=== PATIENT | female | born 1995 | race Caucasian/White ===

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

== ENCOUNTER 2017-02-07 06:29 | Emergency (ER) | payer OTHER ==
[2017-02-07 07:06] LABS: Appearance,Urine Turbid (Clear); Bacteria,Urine Rare /hpf; Bilirubin,Urine 1+ (Negative); Glucose,Urine (UA) Negative (Negative); Ketones,Urine Negative (Negative); Leukocyte Esterase,Urine Large (Negative); Nitrite,Urine Positive (Negative); Particle Count 10902; Protein,Urine 2+ (Negative); RBC,Urine >182 /hpf (0-5); Specific Gravity,Urine 1.019 (1.001-1.035); Squamous Epithelial Cell,Urine 4 /hpf (0-4); UA Billing (MACRO vs. MICRO) MICRO; WBC,Urine >182 /hpf (0-5)
[2017-02-07] MEDS ORDERED: cefTRIAXone 1,000 MG VIAL (IM USE) IM STA (07:23)
--- NOTE | 2017-02-07 07:31 | ED ---
General Adult HPI - General Chief complaint: Urogenital Stated complaint: Possible bladder infection Time Seen by Provider: 02/07/17 07:00 Source: patient, RN notes reviewed Mode of arrival: ambulatory Limitations: no limitations - History of Present Illness Initial comments: This is a 21-year-old female with past medical history significant for UTIs. Patient states she has dysuria and urinary urgency. Patient states prior to my seems to be helping a little but she continues to have urgency. Patient denies any back pain. Patient denies any fever or chills. Patient states this is been ongoing issue over the last year. Patient denies any nausea vomiting or diarrhea. Patient states she has some suprapubic tenderness. Patient denies any vaginal bleeding or discharge abnormally. - Related Data Home Medications Medication Instructions Recorded Confirmed Azo Urinary Pain Relief 2 tab PO TID 12/11/16 12/11/16 Previous Rx's Medication Instructions Recorded Sulfamethox-Tmp 800-160Mg [Bactrim 1 tab PO Q12HR #20 tab 12/11/16 DS 800-160 mg] Ciprofloxacin HCl [Cipro] 500 mg PO Q12HR #20 tablet 02/07/17 Allergies Allergy/AdvReac Type Severity Reaction Status Date / Time amphetamine [From Adderall] Allergy Nausea Verified 12/11/16 18:20 ampicillin sodium Allergy Unknown Verified 12/11/16 18:20 [From Unasyn] aripiprazole [From Abilify] Allergy Unknown Verified 12/11/16 18:20 dextroamphetamine Allergy Nausea Verified 12/11/16 18:20 [From Adderall] sulbactam sodium Allergy Unknown Verified 12/11/16 18:20 [From Unasyn] ziprasidone HCl [From Geodon] Allergy Unknown Verified 12/11/16 18:20 ziprasidone mesylate Allergy Unknown Verified 12/11/16 18:20 [From Geodon] Review of Systems ROS Statement: Those systems with pertinent positive or pertinent negative responses have been documented in the HPI. ROS Other: All systems not noted in ROS Statement are negative. Past Medical History Past Medical History: No Reported History Additional Past Medical History / Comment(s): OTC deficicency, MIGRAINES, Ovarian Cysts History of Any Multi-Drug Resistant Organisms: None Reported Past Surgical History: No Surgical Hx Reported Past Psychological History: ADD/ADHD, Bipolar, Depression Smoking Status: Current every day smoker Past Alcohol Use History: None Reported Past Drug Use History: None Reported General Exam - General Exam Comments Initial Comments: GENERAL: Patient is well-developed and well-nourished. Patient is nontoxic and well- hydrated and is in mild distress. ENT: Neck is soft and supple. No significant lymphadenopathy is noted. Oropharynx is clear. Moist mucous membranes. EYES: The sclera were anicteric and conjunctiva were pink and moist. Extraocular movements were intact and pupils were equal round and reactive to light. Eyelids were unremarkable. PULMONARY: Unlabored respirations. Good breath sounds bilaterally. No audible rales rhonchi or wheezing was noted. CARDIOVASCULAR: There is a regular rate and rhythm without any murmurs gallops or rubs. ABDOMEN: Soft and nontender with normal bowel sounds. SKIN: Skin is clear with no lesions or rashes and otherwise unremarkable. NEUROLOGIC: Patient is alert and oriented x3. Cranial nerves II through XII are grossly intact. MUSCULOSKELETAL: Normal extremities with adequate strength and full range of motion. LYMPHATICS: No significant lymphadenopathy is noted PSYCHIATRIC: Normal psychiatric evaluation. Limitations: no limitations Course Vital Signs 02/07/17 06:30 Temperature 98.9 F Pulse Rate 85 Respiratory 16 Rate Blood Pressure 106/58 O2 Sat by Pulse 95 Oximetry Medical Decision Making - Medical Decision Making Patient's urine was consistent with urinary tract infection. I gave the patient a shot of Rocephin in the ER and we'll be sending the patient home on Cipro. - Lab Data Lab Results 02/07/17 Range/Units 06:50 Urine Color Dark Brown Urine Appearance Turbid H (Clear) Urine pH 6.0 (5.0-8.0) Ur Specific [place] 1.019 (1.001-1.035) Urine Protein 2+ H (Negative) Urine Glucose (UA) Negative (Negative) Urine Ketones Negative (Negative) Urine Blood Large H (Negative) Urine Nitrite Positive H (Negative) Urine Bilirubin 1+ H (Negative) Urine Urobilinogen 6.0 (<2.0) mg/dL Ur Leukocyte Esterase Large H (Negative) Urine RBC >182 H (0-5) /hpf Urine WBC >182 H (0-5) /hpf Urine WBC Clumps Many H (None) /hpf Ur Squamous Epith Cells 4 (0-4) /hpf Urine Bacteria Rare H (None) /hpf Disposition Clinical Impression: Urinary tract infection Disposition: HOME SELF-CARE Condition: Good Instructions: Urinary Tract Infection in Women (ED) Prescriptions: Ciprofloxacin HCl [Cipro] 500 mg PO Q12HR #20 tablet Referrals: Rashmi Perales DO [Primary Care Provider] - 1-2 days Time of Disposition: 07:28
[2017-02-07 07:52] VITALS: BP 124/76; PULSE 84; RESP 18; TEMP 98.7
== END 2017-02-07 07:51 | disposition home or self-care (01) ==
LOC: EC 06:29
DX: N39.0 Urinary tract infection, site not specified (principal); F17.200 Nicotine dependence, unspecified, uncomplicated; Z79.899 Other long term (current) drug therapy; Z88.0 Allergy status to penicillin; Z88.8 Allergy status to other drugs, medicaments and biological substances
CPT/HCPCS: 87591; 87491; 81001; 99283; 96372; J0696

== ENCOUNTER 2017-12-16 22:20 | Emergency (ER) | payer OTHER ==
[2017-12-16 22:27] VITALS: RESP 18
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
[2017-12-17] MEDS ORDERED: IBUPROFEN 600 MG STARTER PACK 4 TAB BTL PO STA (00:45)
[2017-12-17 01:07] VITALS: BP 116/70; PULSE 98; TEMP 98.5
--- NOTE | 2017-12-17 01:09 | XR ---
EXAMINATION TYPE: XR lumbosacral spine min 4V DATE OF EXAM: 12/17/2017 COMPARISON: NONE HISTORY: Pain TECHNIQUE: 5 views FINDINGS: The lumbar vertebra have normal spacing and alignment. Posterior elements are intact. Sacro iliac joints are normal. I see no compression fracture. IMPRESSION: Negative lumbar spine exam. No fracture seen.
== END 2017-12-17 01:06 | disposition home or self-care (01) ==
LOC: EC 22:20
DX: M54.5 Low back pain (principal); F17.200 Nicotine dependence, unspecified, uncomplicated; Z79.899 Other long term (current) drug therapy; Z88.8 Allergy status to other drugs, medicaments and biological substances; Z88.0 Allergy status to penicillin; Z88.1 Allergy status to other antibiotic agents; V43.62XA Car passenger injured in collision with other type car in traffic accident, initial encounter; Y92.410 Unspecified street and highway as the place of occurrence of the external cause
CPT/HCPCS: 72110; 81025; 99284

== ENCOUNTER 2018-09-15 08:58 | Emergency (ER) | payer OTHER ==
[2018-09-15 09:00] VITALS: RESP 18; TEMP 99.3
--- NOTE | 2018-09-15 09:26 | ED ---
ENT HPI - General Chief complaint: ENT Stated complaint: Throat Pain, Ear Pain Time Seen by Provider: 09/15/18 09:01 Source: patient, RN notes reviewed Mode of arrival: ambulatory Limitations: no limitations - History of Present Illness Initial comments: 23-year-old female presents emergency Department chief complaint cough and cold- like symptoms for the day days. Patient states she's been trying of renal colic no relief. Patient states that she's had low-grade temps at home states that she just felt febrile and achy. She states her cough is productive at times. She states her muscles and joints ache. Patient also admits to nasal congestion and sore throat. She does admit to left ear pain and pressure. Patient denies any sick contacts. Denies nausea vomiting diarrhea constipation - Related Data Home Medications Medication Instructions Recorded Confirmed D-Methorphan/PE/Acetaminophen 1 pack PO Q4H PRN 09/15/18 09/15/18 [Theraflu Ms Severe Cold Pckt] Dm/Acetaminophen/Doxylamine [Vicks 2 cap PO Q4H PRN 09/15/18 09/15/18 Nyquil Liquicaps] Ibuprofen [Motrin Ib] 400 mg PO Q6H PRN 09/15/18 09/15/18 Previous Rx's Medication Instructions Recorded Pseudoephedrine 12Hr [Sudafed 12 120 mg PO Q12H #1 box 09/15/18 Hour] guaiFENesin-DM 100-10MG/5ML 10 ml PO Q6HR #1 bottle 09/15/18 [Robitussin DM] Allergies Allergy/AdvReac Type Severity Reaction Status Date / Time amphetamine [From Adderall] Allergy Nausea Verified 09/15/18 09:15 ampicillin sodium Allergy Unknown Verified 09/15/18 09:15 [From Unasyn] aripiprazole [From Abilify] Allergy Unknown Verified 09/15/18 09:15 dextroamphetamine Allergy Nausea Verified 09/15/18 09:15 [From Adderall] sulbactam sodium Allergy Unknown Verified 09/15/18 09:15 [From Unasyn] ziprasidone HCl [From Geodon] Allergy Unknown Verified 09/15/18 09:15 ziprasidone mesylate Allergy Unknown Verified 09/15/18 09:15 [From Geodon] Review of Systems ROS Statement: Those systems with pertinent positive or pertinent negative responses have been documented in the HPI. ROS Other: All systems not noted in ROS Statement are negative. Past Medical History Past Medical History: No Reported History Additional Past Medical History / Comment(s): OTC deficicency, MIGRAINES, Ovarian Cysts History of Any Multi-Drug Resistant Organisms: None Reported Past Surgical History: No Surgical Hx Reported Past Psychological History: ADD/ADHD, Bipolar, Depression Smoking Status: Current every day smoker Past Alcohol Use History: Occasional Past Drug Use History: None Reported General Exam Limitations: no limitations General appearance: alert, in no apparent distress Head exam: Present: atraumatic, normocephalic, normal inspection Eye exam: Present: normal appearance, PERRL, EOMI. Absent: scleral icterus, conjunctival injection, periorbital swelling ENT exam: Present: normal exam, normal oropharynx, mucous membranes moist, TM's normal bilaterally, normal external ear exam Neck exam: Present: normal inspection, full ROM. Absent: tenderness, meningismus, lymphadenopathy Respiratory exam: Present: normal lung sounds bilaterally. Absent: respiratory distress, wheezes, rales, rhonchi, stridor Cardiovascular Exam: Present: normal rhythm, tachycardia, normal heart sounds. Absent: systolic murmur, diastolic murmur, rubs, gallop, clicks Neurological exam: Present: alert, oriented X3, CN II-XII intact Psychiatric exam: Present: normal affect, normal mood Skin exam: Present: warm, dry, intact, normal color. Absent: rash Course Vital Signs 09/15/18 08:58 Temperature 99.3 F Pulse Rate 110 H Respiratory 18 Rate Blood Pressure 114/74 O2 Sat by Pulse 99 Oximetry Medical Decision Making - Medical Decision Making 23-year-old female sent emergency from for cough congestion. Patient has negative influenza, chest x-ray unremarkable. Patient has a viral URI. Patient we discharged on Sudafed and Robitussin. Return parameters were discussed. - Lab Data Lab Results 09/15/18 Range/Units 09:16 Influenza Type A RNA Not Detected (Not Detectd) Influenza Type B (PCR) Not Detected (Not Detectd) Disposition Clinical Impression: Viral upper respiratory infection Disposition: HOME SELF-CARE Condition: Stable Instructions: Upper Respiratory Infection (ED) Additional Instructions: Please return to the Emergency Department if symptoms worsen or any other concerns. Prescriptions: guaiFENesin-DM 100-10MG/5ML [Robitussin DM] 10 ml PO Q6HR #1 bottle Pseudoephedrine 12Hr [Sudafed 12 Hour] 120 mg PO Q12H #1 box Is patient prescribed a controlled substance at d/c from ED?: No Referrals: None,Stated [Primary Care Provider] - 1-2 days Time of Disposition: 10:06
--- NOTE | 2018-09-15 09:28 | XR ---
EXAMINATION TYPE: XR chest 2V DATE OF EXAM: 09/15/2018 COMPARISON: None INDICATION: Cough, congestion, fever TECHNIQUE: Frontal and lateral views of the chest are obtained. FINDINGS: The heart size is normal. The pulmonary vasculature is normal. The lungs are clear. IMPRESSION: 1. No acute pulmonary process.
[2018-09-15 10:19] VITALS: BP 115/85; PULSE 100
== END 2018-09-15 10:15 | disposition home or self-care (01) ==
LOC: EC 08:58
DX: J06.9 Acute upper respiratory infection, unspecified (principal); F17.200 Nicotine dependence, unspecified, uncomplicated; Z88.8 Allergy status to other drugs, medicaments and biological substances; Z88.1 Allergy status to other antibiotic agents
CPT/HCPCS: 71046; 87502; 99283

== ENCOUNTER 2019-01-04 14:44 | Emergency (ER) | payer OTHER ==
[2019-01-04 15:24] VITALS: BP 106/56; RESP 16
--- NOTE | 2019-01-04 16:01 | XR ---
EXAMINATION TYPE: XR shoulder complete RT DATE OF EXAM: 01/04/2019 COMPARISON: NONE HISTORY: 23-year-old female with pain after movement at work TECHNIQUE: 3 views FINDINGS: Subacromial space is preserved. No tendinous or bursal calcifications. AC joint is intact. The glenoh umeral joint is intact with preserved joint space. No acute fracture, subluxation, or dislocation. IMPRESSION: No acute osseous abnormality seen.
--- NOTE | 2019-01-04 16:15 | ED ---
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 Patient port that she does do any repetitive motion at work, since that aggravates her pain. Patient denies any other complaints today. Patient has any recent falls or trauma. Patient states that she is not . Patient not been previously evaluated for this problem. Systemic: Pt denies fatigue, fever/chills, rash. Pt denies weakness, night sweats, weight loss. Neuro: Pt denies headache, visual disturbances, syncope or pre-syncope. HEENT: Pt denies ocular discharge or irritation, otalgia, rhinorrhea, pharyngitis or notable lymphadenopathy. Cardiopulmonary: Pt denies chest pain, SOB, heart palpitations, dyspnea on exertion. Abdominal/GI: Pt denies abdominal pain, n/v/d. : Pt denies dysuria, burning w/ urination, frequency/urgency. Denies new onset urinary or bowel incontinence. MSK: Pt denies loss of strength or function in extremities. Neuro: Pt denies new onset weakness, paresthesias. - Related Data Home Medications Medication Instructions Recorded Confirmed D-Methorphan/PE/Acetaminophen 1 pack PO Q4H PRN 09/15/18 09/15/18 [Theraflu Ms Severe Cold Pckt] Dm/Acetaminophen/Doxylamine [Vicks 2 cap PO Q4H PRN 09/15/18 09/15/18 Nyquil Liquicaps] Ibuprofen [Motrin Ib] 400 mg PO Q6H PRN 09/15/18 09/15/18 Previous Rx's Medication Instructions Recorded Pseudoephedrine 12Hr [Sudafed 12 120 mg PO Q12H #1 box 09/15/18 Hour] guaiFENesin-DM 100-10MG/5ML 10 ml PO Q6HR #1 bottle 09/15/18 [Robitussin DM] Allergies Allergy/AdvReac Type Severity Reaction Status Date / Time amphetamine [From Adderall] Allergy Nausea Verified 09/15/18 09:15 ampicillin sodium Allergy Unknown Verified 09/15/18 09:15 [From Unasyn] aripiprazole [From Abilify] Allergy Unknown Verified 09/15/18 09:15 dextroamphetamine Allergy Nausea Verified 09/15/18 09:15 [From Adderall] sulbactam sodium Allergy Unknown Verified 09/15/18 09:15 [From Unasyn] ziprasidone HCl [From Geodon] Allergy Unknown Verified 09/15/18 09:15 ziprasidone mesylate Allergy Unknown Verified 09/15/18 09:15 [From Geodon] Review of Systems ROS Statement: Those systems with pertinent positive or pertinent negative responses have been documented in the HPI. ROS Other: All systems not noted in ROS Statement are negative. Past Medical History Past Medical History: No Reported History Additional Past Medical History / Comment(s): OTC deficicency, MIGRAINES, Ovarian Cysts History of Any Multi-Drug Resistant Organisms: None Reported Past Surgical History: No Surgical Hx Reported Past Psychological History: ADD/ADHD, Bipolar, Depression Smoking Status: Current every day smoker Past Alcohol Use History: Occasional Past Drug Use History: None Reported General Exam - General Exam Comments Initial Comments: Constitutional: NAD, AOX3, Pt has pleasant affect. HEENT: NC/AT, trachea midline, neck supple, no lymphadenopathy. Posterior pharynx non erythematous, without exudates. External ears appear normal, without discharge. Mucous membranes moist. Eyes PERRLA, EOM intact. There is no scleral icterus. No pallor noted. Cardiopulmonary: RRR, no murmurs, rubs or gallops, no JVD noted. Lungs CTAB in anterior and posterior lemus. No peripheral edema. Abdominal exam: Abdomen soft and non-distended. Abdomen non-tender to palpation in all 4 quadrants. Bowel sounds active in LLQ. No hepatosplenomegaly. No ecchymosis Neuro: CN II-XII grossly intact. No nuchal rigidity. MSK: Right shoulder nontender to palpation. No ecchymoses, no erythema. Empty can test positive. Painful arc positive. 5 out of 5 strength upper extremity. Sensation intact. Distal pulses intact and equal. No posterior calf tenderness bilaterally, homans sign negative bilaterally. Posterior tibialis and radial pulse +2 bilaterally. Sensation intact in upper and lower extremities. Full active ROM in upper and lower extremities, 5/5 stregnth. Limitations: no limitations Course Vital Signs 01/04/19 01/04/19 15:20 16:24 Temperature 97.7 F 98.0 F Pulse Rate 81 78 Respiratory 16 16 Rate Blood Pressure 106/56 O2 Sat by Pulse 100 99 Oximetry Medical Decision Making - Medical Decision Making 23-year-old female patient past medical history of right shoulder dislocation approximately 6 years ago presents to ED with approximately 6 years of waxing and waning right shoulder pain. Patient port that she does do any repetitive motion at work, since that aggravates her pain. Patient denies any other co mplaints today. Patient has any recent falls or trauma. Patient states that she is not . Patient not been previously evaluated for this problem. Pt VSS, afebrile. Physical exam displayed: Right shoulder nontender to palpation. No ecchymoses, no erythema. Empty can test positive. Painful arc positive. 5 out of 5 strength upper extremity. Sensation intact. Distal pulses intact and equal. Plain film of right shoulder did not display any acute pathology. Family history taking, patient states that she does want to ensure that she did not have a dislocated shoulder again. Patient states that she does request to return to work. Patient discharged with outpatient orthopedic follow-up. Patient instructed to work only as tolerated and pain-free. Patient to follow up with orthopedic consult 1-2 days. Patient will return to ER physician worsens in any way. Case discussed with Dr. Rea. Disposition Clinical Impression: Shoulder sprain Disposition: HOME SELF-CARE Condition: Stable Instructions (If sedation given, give patient instructions): Shoulder Sprain (ED) Additional Instructions: Patient to adhere to previously discussed treatment plan and will take medication(s) as directed. Patient to follow up with PCP in 1-2 days. Patient to return to ED if symptoms do not improve. This follow up with primary care physician and orthopedic surgeon for return to work. Please follow-up with orthopedic consult and PCP in 1-2 days. Return to ER if condition worsens in any way. Is patient prescribed a controlled substance at d/c from ED?: No Referrals: None,Stated [Primary Care Provider] - 1-2 days [facility] [NON-STAFF] - 1-2 days Rory Adair DO [Doctor of Osteopathic Medicine] - 1-2 days
[2019-01-04 16:26] VITALS: PULSE 78; TEMP 98
== END 2019-01-04 16:24 | disposition home or self-care (01) ==
LOC: EC 14:44
DX: S43.401A Unspecified sprain of right shoulder joint, initial encounter (principal); F17.200 Nicotine dependence, unspecified, uncomplicated; Z88.8 Allergy status to other drugs, medicaments and biological substances; Z88.1 Allergy status to other antibiotic agents
CPT/HCPCS: 99284

== ENCOUNTER 2019-01-20 20:44 | Emergency (ER) | payer OTHER ==
[2019-01-20] MEDS ORDERED: PROPARACAINE 0.5% OPHTH DROPS 15 ML BTL LEFT EYE STA (23:11)
--- NOTE | 2019-01-20 23:44 | ED ---
General Adult HPI - General Source: patient, RN notes reviewed, old records reviewed Mode of arrival: ambulatory Limitations: no limitations <Ayden Wilson - Last Filed: 01/20/19 23:41> <Samantha Deluna - Last Filed: 01/22/19 06:27> - General Chief complaint: Eye Problems Stated complaint: Chemical-eye Time Seen by Provider: 01/20/19 21:59 - History of Present Illness Initial comments: 23-year-old female patient no pertinent past history presents to ED after having an eye exposure to [id number] chemical which is a lubricant. 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 Patient reports that there was a malfunction and the substance made contact with her left eye. Patient was wearing glasses however they were blown off. Patient reports some burning in her left eye. Patient reports some mild blurred vision which has resolved. Patient denies any other complaints. Systemic: Pt denies fatigue, myalgia, fever/chills, rash. Pt denies weakness, night sweats, weight loss. Neuro: Pt denies headache, visual disturbances, syncope or pre-syncope. HEENT: Pt denies ocular discharge or irritation, otalgia, rhinorrhea, pharyngitis or notable lymphadenopathy. Cardiopulmonary: Pt denies chest pain, SOB, heart palpitations, dyspnea on exertion. Abdominal/GI: Pt denies abdominal pain, n/v/d. : Pt denies dysuria, burning w/ urination, frequency/urgency. Denies new onset urinary or bowel incontinence. MSK: Pt denies myalgia, loss of strength or function in extremities. Neuro: Pt denies new onset weakness, paresthesias. (Ayden Wilson) - Related Data Home Medications Medication Instructions Recorded Confirmed D-Methorphan/PE/Acetaminophen 1 pack PO Q4H PRN 09/15/18 09/15/18 [Theraflu Ms Severe Cold Pckt] Dm/Acetaminophen/Doxylamine [Vicks 2 cap PO Q4H PRN 09/15/18 09/15/18 Nyquil Liquicaps] Ibuprofen [Motrin Ib] 400 mg PO Q6H PRN 09/15/18 09/15/18 Previous Rx's Medication Instructions Recorded Pseudoephedrine 12Hr [Sudafed 12 120 mg PO Q12H #1 box 09/15/18 Hour] guaiFENesin-DM 100-10MG/5ML 10 ml PO Q6HR #1 bottle 09/15/18 [Robitussin DM] Erythromycin Ophth Oint [Romycin 1 applic BOTH EYES QID 7 Days #1 01/20/19 Ophth Oint] tube Allergies Allergy/AdvReac Type Severity Reaction Status Date / Time amphetamine [From Adderall] Allergy Nausea Verified 01/20/19 21:09 ampicillin sodium Allergy Unknown Verified 01/20/19 21:09 [From Unasyn] aripiprazole [From Abilify] Allergy Unknown Verified 01/20/19 21:09 dextroamphetamine Allergy Nausea Verified 01/20/19 21:09 [From Adderall] sulbactam sodium Allergy Unknown Verified 01/20/19 21:09 [From Unasyn] ziprasidone HCl [From Geodon] Allergy Unknown Verified 01/20/19 21:09 ziprasidone mesylate Allergy Unknown Verified 01/20/19 21:09 [From Geodon] Review of Systems ROS Other: All systems not noted in ROS Statement are negative. <Ayden Wilson - Last Filed: 01/20/19 23:41> ROS Other: All systems not noted in ROS Statement are negative. <Samantha Deluna - Last Filed: 01/22/19 06:27> ROS Statement: Those systems with pertinent positive or pertinent negative responses have been documented in the HPI. Past Medical History Past Medical History: No Reported History Additional Past Medical History / Comment(s): OTC deficicency, MIGRAINES, Ovarian Cysts History of Any Multi-Drug Resistant Organisms: None Reported Past Surgical History: No Surgical Hx Reported Past Psychological History: ADD/ADHD, Bipolar, Depression Smoking Status: Current every day smoker Past Alcohol Use History: Occasional Past Drug Use History: None Reported <Ayden Wilson - Last Filed: 01/20/19 23:41> General Exam Limitations: no limitations <Ayden Wilson - Last Filed: 01/20/19 23:41> - General Exam Comments Initial Comments: Constitutional: NAD, AOX3, Pt has pleasant affect. HEENT: NC/AT, trachea midline, neck supple, no lymphadenopathy. Posterior pharynx non erythematous, without exudates. External ears appear normal, without discharge. Mucous membranes moist. Eyes PERRLA, EOM intact. There is no scleral icterus. No pallor noted. No injection into either eye bilaterally. Fluorescein stain does not reveal any uptake in bilateral eyes. Cardiopulmonary: RRR, no murmurs, rubs or gallops, no JVD noted. Lungs CTAB in anterior and posterior lemus. No peripheral edema. Abdominal exam: Abdomen soft and non-distended. Abdomen non-tender to palpation in all 4 quadrants. Bowel sounds active in LLQ. No hepatosplenomegaly. No ecchymosis Neuro: CN II-XII grossly intact. No nuchal rigidity. MSK: No posterior calf tenderness bilaterally, homans sign negative bilaterally. Posterior tibialis and radial pulse +2 bilaterally. Sensation intact in upper and lower extremities. Full active ROM in upper and lower extremities, 5/5 stregnth. (Ayden Wilson) Course Vital Signs 01/20/19 01/21/19 21:05 00:00 Temperature 98.5 F 97.8 F Pulse Rate 64 72 Respiratory 20 19 Rate Blood Pressure 110/78 137/87 O2 Sat by Pulse 100 97 Oximetry Medical Decision Making <Ayden Wilson - Last Filed: 01/20/19 23:41> <Samantha Deluna - Last Filed: 01/22/19 06:27> - Medical Decision Making 23-year-old female patient no pertinent past history presents to ED after having an eye exposure to [id number] chemical which is a lubricant. 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 Patient reports that there was a malfunction and the substance made contact with her left eye. Patient was wearing glasses however they were blown off. Patient reports some burning in her left eye. Patient reports some mild blurred vision which has resolved. Patient denies any other complaints. Pt VSS, afebrile. Physical exam revealed: No injection into either eye bilaterally. Fluorescein stain does not reveal any uptake in bilateral eyes. I irrigated with 1 L normal saline. Patient states that it is not baseline. Patient not contact lens user. Patient discharged with erythromycin. Poison control was contacted and agreement with plan. Patient will be given ophthalmology referral for outpatient follow-up. Patient return to ER if condition worsens. Case discussed with Dr. Deluna. (Ayden Wilson) I was available for consultation in the emergency department. The history and physical exam were done by the midlevel provider. I was consulted for this patient's care. I reviewed the case with the midlevel provider and based on their presentation of the patient, I agree with the assessment, medical decision making and plan of care as documented. Chart was dictated using [employer] dictation software. Attempts were made to correct any dictation errors however some typographical errors may persist. (Samantha Deluna) Disposition Is patient prescribed a controlled substance at d/c from ED?: No <Adyen Wilson - Last Filed: 01/20/19 23:41> <Samantha Deluna - Last Filed: 01/22/19 06:27> Clinical Impression: Chemical exposure of eye Disposition: HOME SELF-CARE Condition: Stable Instructions (If sedation given, give patient instructions): Eye Pain (ED) Additional Instructions: Patient to adhere to previously discussed treatment plan and will take medication(s) as directed. Patient to follow up with PCP in 1-2 days. Patient to return to ED if symptoms do not improve. Take medication as directed. Follow-up with ophthalmology consult tomorrow. Follow up with primary care provider in 1-2 days. Return to ER if condition worsens. Prescriptions: Erythromycin Ophth Oint [Romycin Ophth Oint] 1 applic BOTH EYES QID 7 Days #1 tube Referrals: None,Stated [Primary Care Provider] - 1-2 days Eva Bee MD [STAFF PHYSICIAN] - 1-[address] [facility] [NON-STAFF] - 1-2 days
[2019-01-21 00:02] VITALS: BP 137/87; PULSE 72; RESP 19; TEMP 97.8
== END 2019-01-21 | disposition home or self-care (01) ==
LOC: EC 20:44
DX: T26.92XA Corrosion of left eye and adnexa, part unspecified, initial encounter (principal); H53.8 Other visual disturbances; F17.200 Nicotine dependence, unspecified, uncomplicated; Z77.098 Contact with and (suspected) exposure to other hazardous, chiefly nonmedicinal, chemicals; Z88.8 Allergy status to other drugs, medicaments and biological substances; Z88.1 Allergy status to other antibiotic agents; Y92.69 Other specified industrial and construction area as the place of occurrence of the external cause; Y99.0 Civilian activity done for income or pay
CPT/HCPCS: 99283

== ENCOUNTER 2019-04-21 14:28 | Emergency (ER) | payer OTHER ==
[2019-04-21 14:34] VITALS: BP 107/65; PULSE 82; RESP 16; TEMP 97.6
[2019-04-21 15:06] LABS: Appearance,Urine Clear (Clear); Bilirubin,Urine Negative (Negative); Blood,Urine Small (Negative); Color,Urine Yellow; Glucose,Urine (UA) Negative (Negative); Ketones,Urine Negative (Negative); Leukocyte Esterase,Urine Small (Negative); Nitrite,Urine Negative (Negative); Protein,Urine Negative (Negative); RBC,Urine <1 /hpf (0-5); Specific Gravity,Urine 1.025 (1.001-1.035); Squamous Epithelial Cell,Urine 2 /hpf (0-4); Urobilinogen,Urine <2.0 mg/dL (<2.0); WBC,Urine 2 /hpf (0-5)
--- NOTE | 2019-04-21 15:38 | ED ---
General Adult HPI - General Chief complaint: Urogenital Stated complaint: Urogenital Time Seen by Provider: 04/21/19 14:35 Source: patient, RN notes reviewed Mode of arrival: ambulatory Limitations: no limitations - History of Present Illness Initial comments: 23-year-old female without any significant past medical history presents to the emergency department for vaginal discharge times one week. Patient states this started as a pressure when urinating and some burning with urination. States that she then started to have vaginal discharge. Patient denies any pelvic pain. Denies any fevers. Patient does admit that a few weeks ago she had a new sexual partner. States that she was tested for STDs a month ago but this partner was after that. Patient states she is currently taking Flagyl and is on day 2 for possible bacterial vaginosis but she did not have a confirmed diagnosis.Patient has no other complaints at this time including shortness of breath, chest pain, abdominal pain, nausea or vomiting, headache, or visual changes. - Related Data Home Medications Medication Instructions Recorded Confirmed D-Methorphan/PE/Acetaminophen 1 pack PO Q4H PRN 09/15/18 09/15/18 [Theraflu Ms Severe Cold Pckt] Dm/Acetaminophen/Doxylamine [Vicks 2 cap PO Q4H PRN 09/15/18 09/15/18 Nyquil Liquicaps] Ibuprofen [Motrin Ib] 400 mg PO Q6H PRN 09/15/18 09/15/18 Previous Rx's Medication Instructions Recorded Pseudoephedrine 12Hr [Sudafed 12 120 mg PO Q12H #1 box 09/15/18 Hour] guaiFENesin-DM 100-10MG/5ML 10 ml PO Q6HR #1 bottle 09/15/18 [Robitussin DM] Erythromycin Ophth Oint [Romycin 1 applic BOTH EYES QID 7 Days #1 01/20/19 Ophth Oint] tube Amoxicillin 500 mg PO Q8H #30 capsule 03/06/19 Fluconazole [Diflucan] 150 mg PO ONCE #2 tab 03/06/19 Allergies Allergy/AdvReac Type Severity Reaction Status Date / Time amphetamine [From Adderall] Allergy Nausea Verified 04/21/19 14:31 ampicillin sodium Allergy Unknown Verified 04/21/19 14:31 [From Unasyn] aripiprazole [From Abilify] Allergy Unknown Verified 04/21/19 14:31 dextroamphetamine Allergy Nausea Verified 04/21/19 14:31 [From Adderall] sulbactam sodium Allergy Unknown Verified 04/21/19 14:31 [From Unasyn] ziprasidone HCl [From Geodon] Allergy Unknown Verified 04/21/19 14:31 ziprasidone mesylate Allergy Unknown Verified 04/21/19 14:31 [From Geodon] Review of Systems ROS Statement: Those systems with pertinent positive or pertinent negative responses have been documented in the HPI. ROS Other: All systems not noted in ROS Statement are negative. Past Medical History Past Medical History: No Reported History Additional Past Medical History / Comment(s): OTC deficicency, MIGRAINES, Ovarian Cysts History of Any Multi-Drug Resistant Organisms: None Reported Past Surgical History: No Surgical Hx Reported Past Psychological History: ADD/ADHD, Bipolar, Depression Smoking Status: Current every day smoker Past Alcohol Use History: Occasional Past Drug Use History: None Reported General Exam Limitations: no limitations General appearance: alert, in no apparent distress Head exam: Present: atraumatic, normocephalic, normal inspection Eye exam: Present: normal appearance, PERRL, EOMI. Absent: scleral icterus, conjunctival injection, periorbital swelling ENT exam: Present: normal exam, mucous membranes moist Neck exam: Present: normal inspection, full ROM. Absent: tenderness, meningismus, lymphadenopathy Respiratory exam: Present: normal lung sounds bilaterally. Absent: respiratory distress, wheezes, rales, rhonchi, stridor Cardiovascular Exam: Present: regular rate, normal rhythm, normal heart sounds. Absent: systolic murmur, diastolic murmur, rubs, gallop, clicks GI/Abdominal exam: Present: soft, normal bowel sounds. 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 Absent: erythema, swelling, lesions, lacerations, ecchymosis Speculum exam: Present: vaginal discharge (brown, starting menses). Absent: normal speculum exam, erythema, cervical discharge, vaginal bleeding, foreign body, tissue, laceration By manual exam: Present: normal by manual exam. Absent: cervical motion tenderness, adnexal tenderness, adnexal mass, uterine enlargement, uterine tenderness Neurological exam: Present: alert, oriented X3 Psychiatric exam: Present: normal affect, normal mood Course Vital Signs 04/21/19 14:31 Temperature 97.6 F Pulse Rate 82 Respiratory 16 Rate Blood Pressure 107/65 O2 Sat by Pulse 100 Oximetry Medical Decision Making - Medical Decision Making 23-year-old female presents to the emergency department for a chief complaint of vaginal discharge. Patient states this has been ongoing for about one week. States that she is having some dysuria as well. States that she was diagnosed with possible bacterial vaginosis and is on day 2 of Flagyl but has not had any improvement. Denies fevers or chills. Denies pelvic pain. On exam patient is well-appearing. No abdominal tenderness. Pelvic exam revealed vaginal discharge that is brown in nature however patient is currently starting her period. No pelvic tenderness, and negative chandelier sign. No concerned for pelvic inflammatory disease. Urine does not show evidence of infection but will be cultured given patient's symptoms. Trichomonas pending, patient requests to be called with the results as she is already taking Flagyl. Gonorrhea chlamydia and genital culture pending. I did offer empiric treatment for gonorrhea and Chlamydia the patient refuses this. States she does not want a shot she does not need one. States she will follow up on the results. She will return here if she has any worsening symptoms. I did contact patient about negative Trichomonas results. - Lab Data Lab Results 04/21/19 04/21/19 04/21/19 Range/Units 15:32 Unknown Unknown Urine Color Yellow Urine Appearance Clear (Clear) Urine pH 6.0 (5.0-8.0) Ur Specific [place] 1.025 (1.001-1.035) Urine Protein Negative (Negative) Urine Glucose (UA) Negative (Negative) Urine Ketones Negative (Negative) Urine Blood Small H (Negative) Urine Nitrite Negative (Negative) Urine Bilirubin Negative (Negative) Urine Urobilinogen <2.0 (<2.0) mg/dL Ur Leukocyte Esterase Small H (Negative) Urine RBC <1 (0-5) /hpf Urine WBC 2 (0-5) /hpf Ur Squamous Epith Cells 2 (0-4) /hpf Urine HCG, Qual Not Detected (Not Detectd) Trichomonas Ag (Rapid) Negative (Negative) Disposition Clinical Impression: Vaginal discharge Disposition: HOME SELF-CARE Condition: Good Instructions (If sedation given, give patient instructions): Safe Sex (ED), Vaginal Discharge (ED) Additional Instructions: Please follow up with primary care in 1-2 days. Follow up on culture results in 2 days. Return to the emergency department if you have any worsening symptoms, pelvic pain, or fevers. Is patient prescribed a controlled substance at d/c from ED?: No Referrals: Sandrine Real MD [STAFF PHYSICIAN] - 1-2 days Time of Disposition: 15:36
[2019-04-23 12:39] LABS: C. trachomatis,PCR Negative (Neg,Equiv); Chlamydia trachomatis Source Vagina; N. gonorrhoeae,PCR Negative (Neg,Equiv); Neisseria Source Vagina
== END 2019-04-21 15:58 | disposition home or self-care (01) ==
LOC: EC 14:28
DX: N89.8 Other specified noninflammatory disorders of vagina (principal); R30.0 Dysuria; F17.200 Nicotine dependence, unspecified, uncomplicated; Z88.0 Allergy status to penicillin; Z88.8 Allergy status to other drugs, medicaments and biological substances; Z87.42 Personal history of other diseases of the female genital tract; Z53.20 Procedure and treatment not carried out because of patient's decision for unspecified reasons
CPT/HCPCS: 81001; 81025; 87070; 87086; 87205; 87491; 87591; 87808; 99283

== ENCOUNTER 2019-05-16 15:14 | Emergency (ER) | payer OTHER ==
[2019-05-16 15:36] VITALS: RESP 20; TEMP 100.8
[2019-05-16 15:39] VITALS: BP 120/57
[2019-05-16] MEDS ORDERED: ACETAMINOPHEN TAB 325 MG TAB PO STA ×2 (15:39→15:40)
--- NOTE | 2019-05-16 15:41 | ED ---
ENT HPI - General Chief complaint: ENT Stated complaint: ENT Time Seen by Provider: 05/16/19 15:24 Source: patient Mode of arrival: ambulatory Limitations: no limitations - History of Present Illness Initial comments: 23-year-old female presents for fever or sore throat. Patient states that yesterday she has had a fever and sore throat. Patient states she is prone to strep pharyngitis. Patient states she has had a slight cough. Patient denies any neck stiffness photophobia. Patient states she has occasional headache. Patient denies nausea or vomiting. Patient doesn't tell pain diarrhea. Patient denies rash. Patient states her vaccinations are up-to-date. Patient denies any history of splenectomy. Remaining review of system negative. Upon arrival patient appears on the signs of acute distress. She denies any difficulty breathing or swallowing. - Related Data Home Medications Medication Instructions Recorded Confirmed D-Methorphan/PE/Acetaminophen 1 pack PO Q4H PRN 09/15/18 09/15/18 [Theraflu Ms Severe Cold Pckt] Dm/Acetaminophen/Doxylamine [Vicks 2 cap PO Q4H PRN 09/15/18 09/15/18 Nyquil Liquicaps] Ibuprofen [Motrin Ib] 400 mg PO Q6H PRN 09/15/18 09/15/18 Previous Rx's Medication Instructions Recorded Pseudoephedrine 12Hr [Sudafed 12 120 mg PO Q12H #1 box 09/15/18 Hour] guaiFENesin-DM 100-10MG/5ML 10 ml PO Q6HR #1 bottle 09/15/18 [Robitussin DM] Erythromycin Ophth Oint [Romycin 1 applic BOTH EYES QID 7 Days #1 01/20/19 Ophth Oint] tube Amoxicillin 500 mg PO Q8H #30 capsule 03/06/19 Fluconazole [Diflucan] 150 mg PO ONCE #2 tab 03/06/19 Amoxicillin 500 mg PO Q12HR 10 Days #20 cap 05/16/19 Fluconazole [Diflucan] 150 mg PO ONCE PRN 1 Days #1 tab 05/16/19 predniSONE 20 mg PO DAILY 4 Days #4 tab 05/16/19 Allergies Allergy/AdvReac Type Severity Reaction Status Date / Time amphetamine [From Adderall] Allergy Nausea Verified 05/16/19 15:32 ampicillin sodium Allergy Unknown Verified 05/16/19 15:32 [From Unasyn] aripiprazole [From Abilify] Allergy Unknown Verified 05/16/19 15:32 dextroamphetamine Allergy Nausea Verified 05/16/19 15:32 [From Adderall] sulbactam sodium Allergy Unknown Verified 05/16/19 15:32 [From Unasyn] ziprasidone HCl [From Geodon] Allergy Unknown Verified 05/16/19 15:32 ziprasidone mesylate Allergy Unknown Verified 05/16/19 15:32 [From Geodon] Review of Systems ROS Statement: Those systems with pertinent positive or pertinent negative responses have been documented in the HPI. ROS Other: All systems not noted in ROS Statement are negative. Past Medical History Past Medical History: No Reported History Additional Past Medical History / Comment(s): OTC deficicency, MIGRAINES, Ovarian Cysts History of Any Multi-Drug Resistant Organisms: None Reported Past Surgical History: No Surgical Hx Reported Past Psychological History: ADD/ADHD, Bipolar, Depression Smoking Status: Current every day smoker Past Alcohol Use History: Occasional Past Drug Use History: None Reported General Exam - General Exam Comments Initial Comments: General: The patient is awake and alert, in no distress, and does not appear acutely ill. Eye: +3 mm pupils are equal, round and reactive to light, extra-ocular movements are intact. No nystagmus. There is normal conjunctiva bilaterally. No signs of icterus. No photophobia Ears, nose, mouth and throat: There are moist mucous membranes and no oral lesions. Oropharynx was erythematous with enlarged erythematous tonsils with noted exudates. Oropharynx patent Uvula midline. Tympanic membranes are not erythematous or is no effusions bulging or retraction. No tenderness to palpation of the mastoid. No anterior cervical lymphadenopathy. Rhinorrhea, clear and bilateral nares. No tripoding, no drooling. Neck: The neck is supple, there is no tenderness or JVD. No nuchal rigidity negative Brudzinski and Kernig Cardiovascular: There is a regular rate and rhythm. No murmur, rub or gallop is appreciated. Respiratory: Lungs are clear to auscultation, respirations are non-labored, breath sounds are equal. No wheezes, stridor, rales, or rhonchi. No retractions or abdominal breathing. Gastrointestinal: Soft, non-distended, non-tender abdomen without masses or organomegaly noted. There is no rebound or guarding present. Bowel sounds are unremarkable. Musculoskeletal: Normal ROM, no tenderness. Strength 5/5. Sensation intact. Radial pulses equal bilaterally 2+. Neurological: A&O x 3. CN II-XII intact, There are no obvious motor or sensory deficits. Coordination appears grossly intact. Speech appears normal, no muffling. Skin: Skin is warm and dry and no rashes or lesions are noted. No extremity edema Psychiatric: Cooperative Limitations: no limitations Course Vital Signs 05/16/19 05/16/19 15:32 16:20 Temperature 100.8 F H Pulse Rate 120 H 101 H Respiratory 20 Rate Blood Pressure 120/57 O2 Sat by Pulse 98 Oximetry Medical Decision Making - Medical Decision Making Well-appearing 23-year-old female presenting for fever or sore throat. Patient states she has frequent strep pharyngitis infections. No recent antibiotics within the last 30-60 days. Patient states she frequently gets yeast infections with antibiotic. Chest x-ray revealed no focal consolidations. Lungs are clear. No cough during this on examination. Patient start was erythematous with tonsillar enlargement erythema and exudates. Concern for strep pharyngitis. Will treat. Patient is f/u with PCP. Return parameters discussed patient verbalized understanding. Disposition Clinical Impression: Pharyngitis, Fever, Tonsillar exudate Disposition: HOME SELF-CARE Condition: Good Instructions (If sedation given, give patient instructions): Pharyngitis (ED) Additional Instructions: Please use medication as discussed. Please follow-up with family doctor in the next 2 days. Please return to emergency room if the symptoms increase or worsen or for any other concerns. Prescriptions: Amoxicillin 500 mg PO Q12HR 10 Days #20 cap Fluconazole [Diflucan] 150 mg PO ONCE PRN 1 Days #1 tab PRN Reason: Vaginal Irritation predniSONE 20 mg PO DAILY 4 Days #4 tab Is patient prescribed a controlled substance at d/c from ED?: No Referrals: None,Stated [Primary Care Provider] - 1-2 days Time of Disposition: 15:58
--- NOTE | 2019-05-16 15:46 | XR ---
EXAMINATION TYPE: XR chest 2V DATE OF EXAM: 05/16/2019 COMPARISON: 03/06/2019 INDICATION: Pain, sore throat and ear pain, fever TECHNIQUE: Frontal and lateral views of the chest are obtained. FINDINGS: The heart size is normal. The pulmonary vasculature is normal. The lungs are clear. IMPRESSION: 1. No acute pulmonary process.
[2019-05-16 16:20] VITALS: PULSE 101
== END 2019-05-16 16:30 | disposition home or self-care (01) ==
LOC: EC 15:14
DX: J02.9 Acute pharyngitis, unspecified (principal); J35.8 Other chronic diseases of tonsils and adenoids; F17.200 Nicotine dependence, unspecified, uncomplicated; Z88.0 Allergy status to penicillin; Z88.1 Allergy status to other antibiotic agents; Z88.8 Allergy status to other drugs, medicaments and biological substances
CPT/HCPCS: 71046; 99283

== ENCOUNTER 2019-06-20 11:47 | Emergency (ER) | payer OTHER ==
[2019-06-20 12:09] VITALS: BP 101/65; PULSE 110; RESP 20; TEMP 97.9
[2019-06-20] MEDS ORDERED: methylPREDNISolone SOD SUCCI 125 MG/2 ML VIAL IM ONE (12:26)
--- NOTE | 2019-06-20 12:35 | ED ---
URI HPI - General Source: patient Mode of arrival: ambulatory Limitations: no limitations <Tanika Ramos - Last Filed: 06/20/19 16:09> <Francisca Snider - Last Filed: 06/21/19 12:41> - General Chief Complaint: Upper Respiratory Infection Stated Complaint: congestion/vomiting Time Seen by Provider: 06/20/19 12:08 - History of Present Illness Initial Comments: 24-year-old female with no severe past medical history who denies presenting to the ER for chief complaint of cough sputum production 3 days. P atient states she has had a cough with sputum production for the past 3 days. Patient denies any chest pain or shortness of breath. Patient denies fevers but states she has chills. Patient states that time she coughs so hard she has vomiting. Patient's vaccinations are up-to-date. Patient denies any headache neck stiffness abdominal pain diarrhea. Remaining review of system negative. Upon arrival patient appears well signs of acute distress. (Tanika Ramos) - Related Data Home Medications Medication Instructions Recorded Confirmed Medroxyprogesterone Acetate 150 mg IM Q90D 06/20/19 06/20/19 [Depo-Provera] Previous Rx's Medication Instructions Recorded Azithromycin [Zithromax Z-pack] 0 mg PO DIRECTED #6 tab 06/20/19 Allergies Allergy/AdvReac Type Severity Reaction Status Date / Time amphetamine [From Adderall] Allergy Nausea Verified 06/20/19 12:23 ampicillin sodium Allergy Unknown Verified 06/20/19 12:23 [From Unasyn] aripiprazole [From Abilify] Allergy Unknown Verified 06/20/19 12:23 dextroamphetamine Allergy Nausea Verified 06/20/19 12:23 [From Adderall] sulbactam sodium Allergy Unknown Verified 06/20/19 12:23 [From Unasyn] ziprasidone HCl [From Geodon] Allergy Unknown Verified 06/20/19 12:23 ziprasidone mesylate Allergy Unknown Verified 06/20/19 12:23 [From Geodon] Review of Systems ROS Other: All systems not noted in ROS Statement are negative. <Tanika Ramos - Last Filed: 06/20/19 16:09> ROS Other: All systems not noted in ROS Statement are negative. <Francisca Snider - Last Filed: 06/21/19 12:41> ROS Statement: Those systems with pertinent positive or pertinent negative responses have been documented in the HPI. Past Medical History Past Medical History: No Reported History Additional Past Medical History / Comment(s): OTC deficicency, MIGRAINES, Ovarian Cysts History of Any Multi-Drug Resistant Organisms: None Reported Past Surgical History: No Surgical Hx Reported Past Psychological History: ADD/ADHD, Bipolar, Depression Smoking Status: Current every day smoker Past Alcohol Use History: Occasional Past Drug Use History: None Reported <Tanika Ramos - Last Filed: 06/20/19 16:09> General Exam Limitations: no limitations <Tanika Ramos - Last Filed: 06/20/19 16:09> - General Exam Comments Initial Comments: General: The patient is awake and alert, in no distress, and does not appear acutely ill. Eye: +3 mm pupils are equal, round and reactive to light, extra-ocular movements are intact. No nystagmus. There is normal conjunctiva bilaterally. No signs of icterus. No photophobia Ears, nose, mouth and throat: There are moist mucous membranes and no oral lesions. Oropharynx was not erythematous there is no tonsillar enlargement exu dates or lesions. Uvula midline. Tympanic membranes are not erythematous or is no effusions bulging or retraction. No tenderness to palpation of the mastoid. No anterior cervical lymphadenopathy. Rhinorrhea, clear and bilateral nares. No tripoding, no drooling. Neck: The neck is supple, there is no tenderness or JVD. No nuchal rigidity Cardiovascular: There is a regular rate and rhythm. No murmur, rub or gallop is appreciated. Respiratory: Respirations are non-labored, breath sounds are equal. Slight rale appreciated left mid lung field. No wheezes, stridor, or rhonchi. No retractions or abdominal breathing. Gastrointestinal: Soft, non-distended, non-tender abdomen without masses or organomegaly noted. There is no rebound or guarding present. Bowel sounds are unremarkable. Musculoskeletal: Normal ROM, no tenderness. Strength 5/5. Sensation intact. Radial pulses equal bilaterally 2+. Neurological: A&O x 3. CN II-XII intact grossly, There are no obvious motor or sensory deficits. Coordination appears grossly intact. Speech appears normal, no muffling. Skin: Skin is warm and dry and no rashes or lesions are noted. No extremity edema Psychiatric: Cooperative (Tanika Ramos) Course Vital Signs 06/20/19 12:07 Temperature 97.9 F Pulse Rate 110 H Respiratory 20 Rate Blood Pressure 101/65 O2 Sat by Pulse 99 Oximetry Medical Decision Making <Tanika Ramos - Last Filed: 06/20/19 16:09> <Francisca Snider - Last Filed: 06/21/19 12:41> - Medical Decision Making On PE patient has a possible identifiable rale in the left mid lung field. Chest x-ray revealed no obvious focal consolidation. Patient is oxygenating well on room air. Appears nontoxic. Afebrile. Abdominal exam benign. Patient complains of post tussis emesis. At this time I will start patient on azithromycin again lung examination with concern for developing continue acquired pneumonia. Patient is to follow-up primary care provider 24-48 hours. Return parameters discussed and patient was discharged appearing well after discussing case with attending provider. (Tanika Ramos) I was available for consultation in the emergency department. The history and physical exam were done by the midlevel provider. I was consulted for this patients care. I reviewed the case with the midlevel provider and based on their presentation of the patient, I agree with the assessment, medical decision making and plan of care as documented. Chart was dictated using [id number] dictation software. Attempts were made to correct any dictation errors however some typographical errors may persist. (Francisca Snider) Disposition Is patient prescribed a controlled substance at d/c from ED?: No Time of Disposition: 13:09 <Tanika Ramos - Last Filed: 06/20/19 16:09> <Francisca Snider - Last Filed: 06/21/19 12:41> Clinical Impression: Congestion of upper airway, Cough Disposition: HOME SELF-CARE Condition: Good Instructions (If sedation given, give patient instructions): Upper Respiratory Infection (ED) Additional Instructions: Please use medication as discussed. Please follow-up with family doctor in the next 2 days. Please return to emergency room if the symptoms increase or worsen or for any other concerns. Prescriptions: Azithromycin [Zithromax Z-pack] 0 mg PO DIRECTED #6 tab Referrals: None,Stated [Primary Care Provider] - 1-2 days [facility] [NON-STAFF] - 1-2 days
--- NOTE | 2019-06-20 12:46 | XR ---
EXAMINATION TYPE: XR chest 2V DATE OF EXAM: 06/20/2019 COMPARISON: Prior chest x-ray 05/16/2019 HISTORY: Cough TECHNIQUE: Frontal and lateral views of the chest are obtained. FINDINGS: There is no focal air space opacity, pleural effusion, or pneumothorax seen. The cardiac silhouette size is within normal limits. The osseous structures are intact. IMPRESSION: No acute cardiopulmonary process.
== END 2019-06-20 13:30 | disposition home or self-care (01) ==
LOC: EC 11:47
DX: J98.8 Other specified respiratory disorders (principal); R05 Cough; R68.83 Chills (without fever); R11.10 Vomiting, unspecified; F17.200 Nicotine dependence, unspecified, uncomplicated; Z88.0 Allergy status to penicillin; Z88.1 Allergy status to other antibiotic agents; Z88.8 Allergy status to other drugs, medicaments and biological substances; Z79.3 Long term (current) use of hormonal contraceptives
CPT/HCPCS: 71046; 99283; 96372; J2930

== ENCOUNTER 2019-08-20 15:07 | Emergency (ER) | payer OTHER ==
[2019-08-20 15:35] VITALS: BP 108/71; TEMP 98.2
--- NOTE | 2019-08-20 16:29 | ED ---
Abdominal Pain HPI - General Chief Complaint: Abdominal Pain Stated Complaint: Cramping,low back pain Time Seen by Provider: 08/20/19 16:15 Source: patient Mode of arrival: ambulatory Limitations: no limitations - History of Present Illness Initial Comments: Patient is a 24-year-old female presenting to the emergency department complaints of lower abdominal cramping x 1 week. Patient states she has been dealing with this cramping for over a month now. She had a full workup at [facility] approximately 2-3 weeks ago which was completely normal. Patient states she has recently gone off of her depo shot and finally had period 2 weeks ago. Patient states she was feeling better and then her lower abdominal cramping started about a week ago. Patient denies any fever, chills, vaginal discharge, burning with urination. No history of abdominal surgeries. Patient has been having regular bowel movements. Patient does not believe she is but is sexually active. Patient has not taken any medication for her cramping. Patient has no other complaints at this time. Upon arrival to the ER, vital signs are stable. - Related Data Home Medications Medication Instructions Recorded Confirmed Medroxyprogesterone Acetate 150 mg IM Q90D 06/20/19 06/20/19 [Depo-Provera] Previous Rx's Medication Instructions Recorded Azithromycin [Zithromax Z-pack] 0 mg PO DIRECTED #6 tab 06/20/19 Allergies Allergy/AdvReac Type Severity Reaction Status Date / Time amphetamine [From Adderall] Allergy Nausea Verified 06/20/19 12:23 ampicillin sodium Allergy Unknown Verified 06/20/19 12:23 [From Unasyn] aripiprazole [From Abilify] Allergy Unknown Verified 06/20/19 12:23 dextroamphetamine Allergy Nausea Verified 06/20/19 12:23 [From Adderall] sulbactam sodium Allergy Unknown Verified 06/20/19 12:23 [From Unasyn] ziprasidone HCl [From Geodon] Allergy Unknown Verified 06/20/19 12:23 ziprasidone mesylate Allergy Unknown Verified 06/20/19 12:23 [From Geodon] Review of Systems ROS Statement: Those systems with pertinent positive or pertinent negative responses have been documented in the HPI. ROS Other: All systems not noted in ROS Statement are negative. Past Medical History Past Medical History: No Reported History Additional Past Medical History / Comment(s): OTC deficicency, MIGRAINES, Ovarian Cysts History of Any Multi-Drug Resistant Organisms: None Reported Past Surgical History: No Surgical Hx Reported Past Psychological History: ADD/ADHD, Bipolar, Depression Smoking Status: Current every day smoker Past Alcohol Use History: Occasional Past Drug Use History: None Reported General Exam - General Exam Comments Initial Comments: GENERAL: Well-appearing, well-nourished and in no acute distress. HEAD: Atraumatic, normocephalic. EYES: Pupils equal round and reactive to light, extraocular movements intact, sclera anicteric, conjunctiva are normal. ENT: Nares patent, oropharynx clear without exudates. Moist mucous membranes. NECK: Normal range of motion, supple without lymphadenopathy or JVD. LUNGS: Breath sounds clear to auscultation bilaterally and equal. No wheezes rales or rhonchi. HEART: Regular rate and rhythm without murmurs, rubs or gallops. ABDOMEN: Mild tenderness to palpation of the lower abdomen, suprapubic. Soft, normoactive bowel sounds. No guarding, no rebound. No masses appreciated. : Deferred , declined EXTREMITIES: Normal range of motion, no pitting or edema. No clubbing or cyanosis. NEUROLOGICAL: Normal speech, normal gait. PSYCH: Normal mood, normal affect. SKIN: Warm, Dry, normal turgor, no rashes or lesions noted. Limitations: no limitations Course Vital Signs 08/20/19 08/20/19 15:33 17:20 Temperature 98.2 F Pulse Rate 75 88 Respiratory 21 16 Rate Blood Pressure 108/71 O2 Sat by Pulse 98 99 Oximetry Medical Decision Making - Medical Decision Making Patient is a 24-year-old female presenting with lower abdominal cramping x 1 week. Vital signs are stable. UA is normal, hCG is negative. I recommended a pelvic exam however patient refused. I discussed with patient that her cramping is most likely related to her menstrual cycles. Patient will be given [employer] referral. Patient is stable for discharge at this time. Return parameters were discussed with the patient she verbalized understanding. - Lab Data Lab Results 08/20/19 08/20/19 Range/Units 16:15 16:15 Urine Color Yellow Urine Appearance Clear (Clear) Urine pH 6.5 (5.0-8.0) Ur Specific [place] 1.019 (1.001-1.035) Urine Protein Negative (Negative) Urine Glucose (UA) Negative (Negative) Urine Ketones Negative (Negative) Urine Blood Negative (Negative) Urine Nitrite Negative (Negative) Urine Bilirubin Negative (Negative) Urine Urobilinogen <2.0 (<2.0) mg/dL Ur Leukocyte Esterase Negative (Negative) Urine HCG, Qual Not Detected (Not Detectd) Disposition Clinical Impression: Bilateral lower abdominal cramping Disposition: HOME SELF-CARE Condition: Stable Instructions (If sedation given, give patient instructions): Abdominal Pain (ED) Additional Instructions: Please return to the Emergency Department if symptoms worsen or any other concerns. Follow-up with [employer] as discussed. Is patient prescribed a controlled substance at d/c from ED?: No Referrals: None,Stated [Primary Care Provider] - 1-2 days Ema Gomez MD [STAFF PHYSICIAN] - 1-2 days
[2019-08-20 16:40] LABS: Appearance,Urine Clear (Clear); Bilirubin,Urine Negative (Negative); Blood,Urine Negative (Negative); Color,Urine Yellow; Glucose,Urine (UA) Negative (Negative); Ketones,Urine Negative (Negative); Leukocyte Esterase,Urine Negative (Negative); Nitrite,Urine Negative (Negative); PH, Urine 6.5 (5.0-8.0); Protein,Urine Negative (Negative); Specific Gravity,Urine 1.019 (1.001-1.035); Urobilinogen,Urine <2.0 mg/dL (<2.0)
[2019-08-20 17:21] VITALS: PULSE 88; RESP 16
== END 2019-08-20 17:20 | disposition home or self-care (01) ==
LOC: EC 15:07
DX: R10.31 Right lower quadrant pain (principal); R10.32 Left lower quadrant pain; F17.200 Nicotine dependence, unspecified, uncomplicated; Z88.0 Allergy status to penicillin; Z88.8 Allergy status to other drugs, medicaments and biological substances; Z79.3 Long term (current) use of hormonal contraceptives; Z53.20 Procedure and treatment not carried out because of patient's decision for unspecified reasons
CPT/HCPCS: 81003; 81025; 99284

== ENCOUNTER 2019-09-18 22:48 | Emergency (ER) | payer OTHER ==
[2019-09-18 22:54] VITALS: BP 121/80; PULSE 109; RESP 20; TEMP 97.8
[2019-09-18] MEDS ORDERED: KETOROLAC 60 MG/2 ML VIAL IM STA (23:39)
[2019-09-18] MEDS ORDERED: ACETAMINOPHEN TAB 500 MG TAB PO STA (23:40)
[2019-09-19 00:15] LABS: Appearance,Urine Clear (Clear); Bilirubin,Urine Negative (Negative); Blood,Urine Negative (Negative); Color,Urine Yellow; Glucose,Urine (UA) Negative (Negative); Ketones,Urine Negative (Negative); Leukocyte Esterase,Urine Negative (Negative); Nitrite,Urine Negative (Negative); Protein,Urine Negative (Negative); Specific Gravity,Urine 1.024 (1.001-1.035); Urobilinogen,Urine <2.0 mg/dL (<2.0)
--- NOTE | 2019-09-19 00:21 | ED ---
Back Pain HPI - General Chief Complaint: Back Pain/Injury Stated Complaint: L Leg Pain Time Seen by Provider: 09/18/19 23:17 Source: patient, RN notes reviewed, old records reviewed Limitations: no limitations - History of Present Illness Initial Comments: This is a 24-year-old female to the ER for evaluation patient states she presents today for evaluation regards to back. She will follow with no persistent back pain and left hip pain since. Patient stable and without significant difficulty no recent travel history of no other trauma noted. No loss of bowel or bladder. No drug or alcohol abuse. MD Complaint: back pain, other (Left hip pain) -: week(s) Similar Symptoms Previously: Yes Place: home Radiation: none Severity: mild Severity scale (1-10): 3 Consistency: constant Improves With: immobilization Worsens With: movement, walking Context: while lifting Associated Symptoms: denies other symptoms - Related Data Home Medications Medication Instructions Recorded Confirmed Medroxyprogesterone Acetate 150 mg IM Q90D 06/20/19 06/20/19 [Depo-Provera] Previous Rx's Medication Instructions Recorded Azithromycin [Zithromax Z-pack] 0 mg PO DIRECTED #6 tab 06/20/19 Allergies Allergy/AdvReac Type Severity Reaction Status Date / Time amphetamine [From Adderall] Allergy Nausea Verified 09/18/19 22:54 ampicillin sodium Allergy Unknown Verified 09/18/19 22:54 [From Unasyn] aripiprazole [From Abilify] Allergy Unknown Verified 09/18/19 22:54 dextroamphetamine Allergy Nausea Verified 09/18/19 22:54 [From Adderall] sulbactam sodium Allergy Unknown Verified 09/18/19 22:54 [From Unasyn] ziprasidone HCl [From Geodon] Allergy Unknown Verified 09/18/19 22:54 ziprasidone mesylate Allergy Unknown Verified 09/18/19 22:54 [From Geodon] Review of Systems ROS Statement: Those systems with pertinent positive or pertinent negative responses have been documented in the HPI. ROS Other: All systems not noted in ROS Statement are negative. Past Medical History Past Medical History: No Reported History Additional Past Medical History / Comment(s): OTC deficicency, MIGRAINES, Ovarian Cysts History of Any Multi-Drug Resistant Organisms: None Reported Past Surgical History: No Surgical Hx Reported Past Psychological History: ADD/ADHD, Bipolar, Depression Smoking Status: Current every day smoker Past Alcohol Use History: Occasional Past Drug Use History: None Reported General Exam Limitations: no limitations General appearance: alert, in no apparent distress Head exam: Present: atraumatic, normocephalic, normal inspection Eye exam: Present: normal appearance, PERRL, EOMI. Absent: scleral icterus, conjunctival injection, periorbital swelling ENT exam: Present: normal exam, mucous membranes moist Neck exam: Present: normal inspection. Absent: tenderness, meningismus, lymphadenopathy Respiratory exam: Present: normal lung sounds bilaterally. Absent: respiratory distress, wheezes, rales, rhonchi, stridor Cardiovascular Exam: Present: normal rhythm, tachycardia, normal heart sounds. Absent: systolic murmur, diastolic murmur, rubs, gallop, clicks GI/Abdominal exam: Present: soft, normal bowel sounds. Absent: distended, tenderness, guarding, rebound, rigid Extremities exam: Present: normal inspection, full ROM, normal capillary refill. Absent: tenderness, pedal edema, joint swelling, calf tenderness Back exam: Present: normal inspection Neurological exam: Present: alert, oriented X3, CN II-XII intact Psychiatric exam: Present: normal affect, normal mood Skin exam: Present: warm, dry, intact, normal color. Absent: rash Course Vital Signs 09/18/19 22:51 Temperature 97.8 F Pulse Rate 109 H Respiratory 20 Rate Blood Pressure 121/80 O2 Sat by Pulse 99 Oximetry - Reevaluation(s) Reevaluation #1: Medical records reviewed Patient's pain is well-controlled currently asking for work note Medical Decision Making - Medical Decision Making 24 female to the ER for evaluation in regards to back pain. Patient is currently well controlled now. Patient can be discharged home - Lab Data Lab Results 09/18/19 09/18/19 Range/Units 23:31 23:31 Urine Color Yellow Urine Appearance Clear (Clear) Urine pH 6.0 (5.0-8.0) Ur Specific [place] 1.024 (1.001-1.035) Urine Protein Negative (Negative) Urine Glucose (UA) Negative (Negative) Urine Ketones Negative (Negative) Urine Blood Negative (Negative) Urine Nitrite Negative (Negative) Urine Bilirubin Negative (Negative) Urine Urobilinogen <2.0 (<2.0) mg/dL Ur Leukocyte Esterase Negative (Negative) Urine HCG, Qual Not Detected (Not Detectd) - Radiology Data Radiology results: report reviewed (X-ray of lumbar and sacral spine and left hip negative for traumatic injury), image reviewed Disposition Clinical Impression: Mechanical back pain, Strain of lumbar region, Mid back pain, Lumbar radiculopathy Disposition: HOME SELF-CARE Condition: Good Instructions (If sedation given, give patient instructions): Acute Low Back Pain (ED) Is patient prescribed a controlled substance at d/c from ED?: No Referrals: None,Stated [Primary Care Provider] - 1-2 days
--- NOTE | 2019-09-19 00:43 | XR ---
EXAMINATION TYPE: XR Hip LT and AP Pelvis DATE OF EXAM: 09/19/2019 COMPARISON: NONE HISTORY: Back pain. Hip pain TECHNIQUE: 3 views FINDINGS: Pelvic ring is intact. Proximal femur and hip joint appear normal. Left hip joint space is fairly normal. There is no sign of hip dysplasia. Sacroiliac joints appear normal. IMPRESSION: Negative exam. No fracture.
--- NOTE | 2019-09-19 00:44 | XR ---
EXAMINATION TYPE: XR lumbar spine 2 or 3V DATE OF EXAM: 09/19/2019 COMPARISON: 12/17/2017 HISTORY: Back pain TECHNIQUE: 3 views FINDINGS: Lumbar vertebra have normal spacing and alignment. Posterior elements are intact. Sacroilia c joints appear normal. IMPRESSION: Normal lumbar spine exam. No change.
== END 2019-09-19 01:01 | disposition home or self-care (01) ==
LOC: EC 22:48
DX: S39.012A Strain of muscle, fascia and tendon of lower back, initial encounter (principal); M54.16 Radiculopathy, lumbar region; F17.200 Nicotine dependence, unspecified, uncomplicated; Z88.0 Allergy status to penicillin; Z88.1 Allergy status to other antibiotic agents; Z88.8 Allergy status to other drugs, medicaments and biological substances; X58.XXXA Exposure to other specified factors, initial encounter
CPT/HCPCS: 81003; 81025; 72100; 73502; 99284; 96372; J1885

== ENCOUNTER 2019-10-04 15:02 | Emergency (ER) | payer OTHER ==
[2019-10-04 15:40] VITALS: TEMP 98.4
[2019-10-04] MEDS ORDERED: IPRATROPIUM-ALBUTEROL 3 ML NEB INHALATION STA (17:38)
--- NOTE | 2019-10-04 17:40 | ED ---
URI HPI - General Chief Complaint: Upper Respiratory Infection Stated Complaint: chest congestion Time Seen by Provider: 10/04/19 17:25 Source: patient, RN notes reviewed, old records reviewed Mode of arrival: ambulatory Limitations: no limitations - History of Present Illness Initial Comments: This is a 24-year-old female DF for evaluation presents today for evaluation of cough and congestion history of smoking. Patient has no other medical conditions or calamities. Denies drug or alcohol abuse. 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 She believes she may have had a fever but no documented fever she felt somewhat warm and chills. No chest pain currently no new rashes no nausea vomiting or diarrhea. No other complaints MD Complaint: fever, cough -: days(s) Severity: mild Consistency: intermittent Improves With: nothing Worsens With: nothing Associated Symptoms: fever, chills, myalgias, cough, shortness of breath Treatments Prior to Arrival: none, Acetaminophen - Related Data Home Medications Medication Instructions Recorded Confirmed Medroxyprogesterone Acetate 150 mg IM Q90D 06/20/19 06/20/19 [Depo-Provera] Previous Rx's Medication Instructions Recorded Azithromycin [Zithromax Z-pack] 0 mg PO DIRECTED #6 tab 06/20/19 Allergies Allergy/AdvReac Type Severity Reaction Status Date / Time amphetamine [From Adderall] Allergy Nausea Verified 09/18/19 22:54 ampicillin sodium Allergy Unknown Verified 09/18/19 22:54 [From Unasyn] aripiprazole [From Abilify] Allergy Unknown Verified 09/18/19 22:54 dextroamphetamine Allergy Nausea Verified 09/18/19 22:54 [From Adderall] sulbactam sodium Allergy Unknown Verified 09/18/19 22:54 [From Unasyn] ziprasidone HCl [From Geodon] Allergy Unknown Verified 09/18/19 22:54 ziprasidone mesylate Allergy Unknown Verified 09/18/19 22:54 [From Geodon] Review of Systems ROS Statement: Those systems with pertinent positive or pertinent negative responses have been documented in the HPI. ROS Other: All systems not noted in ROS Statement are negative. Past Medical History Past Medical History: No Reported History Additional Past Medical History / Comment(s): OTC deficicency, MIGRAINES, Ovarian Cysts History of Any Multi-Drug Resistant Organisms: None Reported Past Surgical History: No Surgical Hx Reported Past Psychological History: ADD/ADHD, Bipolar, Depression Smoking Status: Current every day smoker Past Alcohol Use History: Occasional Past Drug Use History: None Reported General Exam Limitations: no limitations General appearance: alert, in no apparent distress Head exam: Present: atraumatic, normocephalic, normal inspection Eye exam: Present: normal appearance, PERRL, EOMI. Absent: scleral icterus, conjunctival injection, periorbital swelling ENT exam: Present: normal exam, mucous membranes moist Neck exam: Present: normal inspection. Absent: tenderness, meningismus, lymphadenopathy Respiratory exam: Present: normal lung sounds bilaterally. Absent: respiratory distress, wheezes, rales, rhonchi, stridor Cardiovascular Exam: Present: regular rate, normal rhythm, normal heart sounds. Absent: systolic murmur, diastolic murmur, rubs, gallop, clicks GI/Abdominal exam: Present: soft, normal bowel sounds. Absent: distended, tenderness, guarding, rebound, rigid Extremities exam: Present: normal inspection, full ROM, normal capillary refill. Absent: tenderness, pedal edema, joint swelling, calf tenderness Back exam: Present: normal inspection Neurological exam: Present: alert, oriented X3, CN II-XII intact Psychiatric exam: Present: normal affect, normal mood Skin exam: Present: warm, dry, intact, normal color. Absent: rash Course Vital Signs 10/04/19 15:37 Temperature 98.4 F Pulse Rate 93 Respiratory 20 Rate Blood Pressure 104/75 O2 Sat by Pulse 99 Oximetry - Reevaluation(s) Reevaluation #1: 10/04/19 18:20 Medical record is reviewed Reevaluation #2: 10/04/19 18:20 No acute distress Medical Decision Making - Medical Decision Making 24 female here for evaluation, cough congestion and fevers. Patient has normal chest x-ray here in the ER will be treated for URI, give breathing treatment here with improvement. Patient can be discharged - Radiology Data Radiology results: report reviewed, image reviewed Disposition Clinical Impression: Sinusitis, Acute upper respiratory infection, Bronchitis Disposition: HOME SELF-CARE Condition: Good Instructions (If sedation given, give patient instructions): Upper Respiratory Infection (ED) Is patient prescribed a controlled substance at d/c from ED?: No Referrals: None,Stated [Primary Care Provider] - 1-2 days
[2019-10-04 18:37] VITALS: PULSE 94
[2019-10-04 18:58] LABS: Appearance,Urine Cloudy (Clear); Bacteria,Urine Many /hpf; Bilirubin,Urine Negative (Negative); Blood,Urine Small (Negative); Color,Urine Yellow; Glucose,Urine (UA) Negative (Negative); Ketones,Urine Negative (Negative); Leukocyte Esterase,Urine Small (Negative); Mucus,Urine Rare /hpf; Nitrite,Urine Negative (Negative); Protein,Urine Negative (Negative); RBC,Urine 2 /hpf (0-5); Specific Gravity,Urine 1.022 (1.001-1.035); Squamous Epithelial Cell,Urine 20 /hpf (0-4); Urobilinogen,Urine <2.0 mg/dL (<2.0); WBC,Urine 7 /hpf (0-5)
[2019-10-04 19:07] VITALS: BP 132/56; RESP 22
--- NOTE | 2019-10-04 19:14 | XR ---
EXAMINATION: XR chest 2V DATE AND TIME: 10/04/2019 6:05 PM CLINICAL INDICATION: PHH; cough TECHNIQUE: Departmental protocol COMPARISON: 06/20/2019 FINDINGS: The lungs are clear. The pleural spaces are negative. The cardiac silhouette is not enlarged. The remainder of the mediastinal silhouette is unremarkable. The skeletal structures and soft tissues are negative for acute findings. IMPRESSION: NO ACUTE PROCESS.
== END 2019-10-04 19:42 | disposition home or self-care (01) ==
LOC: EC 15:02
DX: J32.9 Chronic sinusitis, unspecified (principal); J06.9 Acute upper respiratory infection, unspecified; J40 Bronchitis, not specified as acute or chronic; F17.200 Nicotine dependence, unspecified, uncomplicated; Z79.3 Long term (current) use of hormonal contraceptives; Z88.8 Allergy status to other drugs, medicaments and biological substances; Z88.1 Allergy status to other antibiotic agents
CPT/HCPCS: 71046; 81001; 81025; 94640; 99285

== ENCOUNTER 2019-11-05 23:39 | Emergency (ER) | payer OTHER ==
[2019-11-05 23:56] VITALS: BP 110/73; PULSE 85; RESP 18; TEMP 97.9
[2019-11-06] MEDS ORDERED: NEOMYCIN-POLYMYXIN-HC (3.5-10,000-10 MG) OTIC DROPS 10 ML BTL BOTH EARS STA (00:13)
[2019-11-06] MEDS ORDERED: AMOXICILLIN 875 MG TAB PO STA (00:13)
--- NOTE | 2019-11-06 00:16 | ED ---
ENT HPI - General Chief complaint: ENT Stated complaint: Ear Pain Time Seen by Provider: 11/05/19 23:59 Source: patient Mode of arrival: ambulatory - History of Present Illness Initial comments: Patient is 24-year-old woman with history of previous ear infections. She states she felt like she was getting one of these with her left ear starting about 3 days ago there was a little bit of pressure, and that became worse over the following day. She had a little bit of right ear pressure as well though not as bad. Patient began placing drops in the left ear and then notes that her ear also felt tender and swollen. Patient has minimal cough. No fevers. MD complaint: ear pain Onset/Timin -: days(s) Location: R ear, L ear Severity: moderate Quality: aching Consistency: constant Improves with: none - Related Data Home Medications Medication Instructions Recorded Confirmed Medroxyprogesterone Acetate 150 mg IM Q90D 06/20/19 06/20/19 [Depo-Provera] Previous Rx's Medication Instructions Recorded Azithromycin [Zithromax Z-pack] 0 mg PO DIRECTED #6 tab 06/20/19 Albuterol Sulfate [Proair Hfa] 1 - 2 puff INHALATION Q4H PRN #1 10/04/19 inhaler Azithromycin [Zithromax Z-pack] 0 mg PO DIRECTED #1 pack 10/04/19 Amoxicillin 875 mg PO Q12HR #14 tablet 11/06/19 Fluconazole [Diflucan] 150 mg PO ONCE #1 tab 11/06/19 Allergies Allergy/AdvReac Type Severity Reaction Status Date / Time amphetamine [From Adderall] Allergy Nausea Verified 11/05/19 23:56 ampicillin sodium Allergy Unknown Verified 11/05/19 23:56 [From Unasyn] aripiprazole [From Abilify] Allergy Unknown Verified 11/05/19 23:56 dextroamphetamine Allergy Nausea Verified 11/05/19 23:56 [From Adderall] sulbactam sodium Allergy Unknown Verified 11/05/19 23:56 [From Unasyn] ziprasidone HCl [From Geodon] Allergy Unknown Verified 11/05/19 23:56 ziprasidone mesylate Allergy Unknown Verified 11/05/19 23:56 [From Geodon] Review of Systems ROS Statement: Those systems with pertinent positive or pertinent negative responses have been documented in the HPI. ROS Other: All systems not noted in ROS Statement are negative. Constitutional: Denies: fever, chills ENT: Reports: as per HPI, ear pain. Denies: throat pain, hearing loss, congestion Respiratory: Reports: cough. Denies: dyspnea Skin: Denies: rash Neurological: Denies: headache Past Medical History Past Medical History: No Reported History Additional Past Medical History / Comment(s): OTC deficicency, MIGRAINES, Ovarian Cysts History of Any Multi-Drug Resistant Organisms: None Reported Past Surgical History: No Surgical Hx Reported Past Psychological History: ADD/ADHD, Bipolar, Depression Smoking Status: Current every day smoker Past Alcohol Use History: Occasional Past Drug Use History: None Reported General Exam Limitations: no limitations General appearance: alert, in no apparent distress Head exam: Present: atraumatic, normocephalic Eye exam: Present: normal appearance. Absent: scleral icterus, conjunctival injection ENT exam: Present: normal oropharynx, other (There are bilateral effusions. Left external auditory canal is edematous with mild erythema. There is tenderness at the tragus.) Neck exam: Present: normal inspection, full ROM. Absent: meningismus Respiratory exam: Present: normal lung sounds bilaterally. Absent: respiratory distress, wheezes, rales, rhonchi, stridor Cardiovascular Exam: Present: regular rate, normal rhythm, normal heart sounds. Absent: systolic murmur, diastolic murmur, rubs, gallop Skin exam: Present: warm, dry, intact, normal color. Absent: rash Course Vital Signs 11/05/19 23:52 Temperature 97.9 F Pulse Rate 85 Respiratory 18 Rate Blood Pressure 110/73 O2 Sat by Pulse 100 Oximetry Disposition Clinical Impression: Otitis externa, Otitis media Disposition: HOME SELF-CARE Condition: Good Instructions (If sedation given, give patient instructions): Otitis Externa (ED), Ear Infection (ED) Prescriptions: Amoxicillin 875 mg PO Q12HR #14 tablet Fluconazole [Diflucan] 150 mg PO ONCE #1 tab Is patient prescribed a controlled substance at d/c from ED?: No Referrals: None,Stated [Primary Care Provider] - 1-2 days
== END 2019-11-06 01:20 | disposition home or self-care (01) ==
LOC: EC 23:39
DX: H60.93 Unspecified otitis externa, bilateral (principal); H66.93 Otitis media, unspecified, bilateral; R05 Cough; F17.200 Nicotine dependence, unspecified, uncomplicated; Z88.0 Allergy status to penicillin; Z88.8 Allergy status to other drugs, medicaments and biological substances; Z79.3 Long term (current) use of hormonal contraceptives
CPT/HCPCS: 99282

== ENCOUNTER 2019-11-14 15:00 | Emergency (ER) | payer OTHER ==
[2019-11-14 15:04] VITALS: BP 115/80; TEMP 99
[2019-11-14] MEDS ORDERED: SULFAMETHOX-TMP 800-160MG 1 EACH TAB PO STA (15:10)
[2019-11-14] MEDS ORDERED: LIDOCAINE 1% INJ 10MG/ML (20 ML MDV) SQ STA (15:10)
[2019-11-14] MEDS ORDERED: SULFAMETH-TMP DS STARTER PACK 2 TAB BTL PO STA (15:10)
--- NOTE | 2019-11-14 15:54 | ED ---
General Adult HPI - General Chief complaint: Skin/Abscess/Foreign Body Stated complaint: right arm abcess Time Seen by Provider: 11/14/19 15:06 Source: patient, RN notes reviewed, old records reviewed Mode of arrival: ambulatory Limitations: no limitations - History of Present Illness Initial comments: 24-year-old female patient brought to ED for evaluation of right axillary abscess. Patient reports has been present for approximately one week. Denies any complaints. Denies any chance of being . Systemic: Pt denies fatigue, fever/chills, rash. Pt denies weakness, night sweats, weight loss. Neuro: Pt denies headache, visual disturbances, syncope or pre-syncope. HEENT: Pt denies ocular discharge or irritation, otalgia, rhinorrhea, pharyng itis or notable lymphadenopathy. Cardiopulmonary: Pt denies chest pain, SOB, heart palpitations, dyspnea on exertion. Abdominal/GI: Pt denies abdominal pain, n/v/d. : Pt denies dysuria, burning w/ urination, frequency/urgency. Denies new onset urinary or bowel incontinence. MSK: Pt denies myalgia, loss of strength or function in extremities. Neuro: Pt denies new onset weakness, paresthesias. - Related Data Home Medications Medication Instructions Recorded Confirmed Medroxyprogesterone Acetate 150 mg IM Q90D 06/20/19 06/20/19 [Depo-Provera] Previous Rx's Medication Instructions Recorded Azithromycin [Zithromax Z-pack] 0 mg PO DIRECTED #6 tab 06/20/19 Albuterol Sulfate [Proair Hfa] 1 - 2 puff INHALATION Q4H PRN #1 10/04/19 inhaler Azithromycin [Zithromax Z-pack] 0 mg PO DIRECTED #1 pack 10/04/19 Amoxicillin 875 mg PO Q12HR #14 tablet 11/06/19 Fluconazole [Diflucan] 150 mg PO ONCE #1 tab 11/06/19 Sulfamethox-Tmp 800-160Mg [Bactrim 1 tab PO Q12HR 10 Days #20 tab 11/14/19 DS 800-160 mg] Allergies Allergy/AdvReac Type Severity Reaction Status Date / Time amphetamine [From Adderall] Allergy Nausea Verified 11/14/19 15:04 ampicillin sodium Allergy Unknown Verified 11/14/19 15:04 [From Unasyn] aripiprazole [From Abilify] Allergy Unknown Verified 11/14/19 15:04 dextroamphetamine Allergy Nausea Verified 11/14/19 15:04 [From Adderall] sulbactam sodium Allergy Unknown Verified 11/14/19 15:04 [From Unasyn] ziprasidone HCl [From Geodon] Allergy Unknown Verified 11/14/19 15:04 ziprasidone mesylate Allergy Unknown Verified 11/14/19 15:04 [From Geodon] Review of Systems ROS Statement: Those systems with pertinent positive or pertinent negative responses have been documented in the HPI. ROS Other: All systems not noted in ROS Statement are negative. Past Medical History Past Medical History: No Reported History Additional Past Medical History / Comment(s): OTC deficicency, MIGRAINES, Ovarian Cysts History of Any Multi-Drug Resistant Organisms: None Reported Past Surgical History: No Surgical Hx Reported Past Psychological History: ADD/ADHD, Bipolar, Depression Smoking Status: Current every day smoker Past Alcohol Use History: Occasional Past Drug Use History: None Reported General Exam - General Exam Comments Initial Comments: Constitutional: NAD, AOX3, Pt has pleasant affect. HEENT: NC/AT, trachea midline, neck supple, no lymphadenopathy. Posterior pharynx non erythematous, without exudates. External ears appear normal, without discharge. Mucous membranes moist. Eyes PERRLA, EOM intact. There is no scleral icterus. No pallor noted. Cardiopulmonary: RRR, no murmurs, rubs or gallops, no JVD noted. Lungs CTAB in anterior and posterior lemus. No peripheral edema. Abdominal exam: Abdomen soft and non-distended. Abdomen non-tender to palpation in all 4 quadrants. Bowel sounds active in LLQ. No hepatosplenomegaly. No ecchymosis Neuro: CN II-XII grossly intact. No nuchal rigidity. No raccon eyes, no onofre sign, no hemotympanum. No cervical spinal tenderness. MSK: 3x3 cm right axillary abscess, small amount erythema, no streaking, Ultram, didn't drainage performed did display purulent drainage. No posterior calf tenderness bilaterally, homans sign negative bilaterally. Posterior tibialis and radial pulse +2 bilaterally. Sensation intact in upper and lower extremities. Full active ROM in upper and lower extremities, 5/5 stregnth. Limitations: no limitations Course Vital Signs 11/14/19 11/14/19 15:01 15:58 Temperature 99.0 F Pulse Rate 115 H 82 Respiratory 20 18 Rate Blood Pressure 115/80 O2 Sat by Pulse 99 Oximetry Medical Decision Making - Medical Decision Making 24-year-old female patient brought to ED for evaluation of right axillary abscess. Patient reports has been present for approximately one week. Denies any complaints. Denies any chance of being . Pt VSS, afebrile. Physical exam displayed: 3x3 cm right axillary abscess, small amount erythema, no streaking, Ultram, did drainage performed did display purulent drainage. Patient discharged on Bactrim and will follow up with primary care provider will return to ER physician worsens. Case discussed with Dr. Barrios. Disposition Clinical Impression: Abscess Disposition: HOME SELF-CARE Condition: Stable Instructions (If sedation given, give patient instructions): Abscess (ED) Additional Instructions: Follow-up with primary care provider tomorrow. Take medication as directed. Return to ER if condition worsens. Return to ED if you develop fever, redness or worsening symptoms. Prescriptions: Sulfamethox-Tmp 800-160Mg [Bactrim DS 800-160 mg] 1 tab PO Q12HR 10 Days #20 tab Is patient prescribed a controlled substance at d/c from ED?: No Referrals: None,Stated [Primary Care Provider] - 1-2 days
[2019-11-14 15:59] VITALS: PULSE 82; RESP 18
--- NOTE | 2019-11-14 17:26 | ED ---
Disposition Clinical Impression: Abscess Disposition: HOME SELF-CARE Condition: Stable Instructions (If sedation given, give patient instructions): Abscess (ED) Additional Instructions: Follow-up with primary care provider tomorrow. Take medication as directed. Return to ER if condition worsens. Return to ED if you develop fever, redness or worsening symptoms. Prescriptions: Sulfamethox-Tmp 800-160Mg [Bactrim DS 800-160 mg] 1 tab PO Q12HR 10 Days #20 tab Is patient prescribed a controlled substance at d/c from ED?: No Referrals: None,Stated [Primary Care Provider] - 1-2 days Procedures - Incision & Drainage Consent Obtained: verbal consent Indication: abscess right axillae Site: other (right axillae) Size (cm): 3 Anesthetic Used: lidocaine 1% Amount (mLs): 2 I&D Cleaning Method: Alcohol Wipe Sterile Field Used?: Yes Scalpel Used: #11 Needle Aspiration Performed?: Yes I&D Drainage Obtained: Pus, Blood Culture Obtained?: Yes Patient Tolerated Procedure: well
== END 2019-11-14 16:02 | disposition home or self-care (01) ==
LOC: EC 15:00
DX: L02.411 Cutaneous abscess of right axilla (principal); F17.200 Nicotine dependence, unspecified, uncomplicated; Z79.3 Long term (current) use of hormonal contraceptives; Z88.8 Allergy status to other drugs, medicaments and biological substances; Z88.1 Allergy status to other antibiotic agents
CPT/HCPCS: 99283; 10160; J2001

== ENCOUNTER 2019-12-15 13:55 | Emergency (ER) | payer OTHER ==
[2019-12-15 14:01] VITALS: BP 134/81; TEMP 98.5
[2019-12-15 14:22] LABS: Appearance,Urine Clear (Clear); Bacteria,Urine Occasional /hpf; Bilirubin,Urine Negative (Negative); Blood,Urine Negative (Negative); Color,Urine Yellow; Glucose,Urine (UA) Negative (Negative); Ketones,Urine Negative (Negative); Leukocyte Esterase,Urine Trace (Negative); Mucus,Urine Occasional /hpf; Nitrite,Urine Negative (Negative); Protein,Urine Negative (Negative); RBC,Urine 2 /hpf (0-5); Specific Gravity,Urine 1.023 (1.001-1.035); Squamous Epithelial Cell,Urine 4 /hpf (0-4); Urobilinogen,Urine <2.0 mg/dL (<2.0); WBC,Urine 1 /hpf (0-5)
--- NOTE | 2019-12-15 14:32 | ED ---
Recheck HPI - General Chief Complaint: Recheck/Abnormal Lab/Rx Stated Complaint: TEST Time Seen by Provider: 12/15/19 14:02 Source: patient, RN notes reviewed Mode of arrival: ambulatory Limitations: no limitations - History of Present Illness Initial Comments: 24-year-old female presents emergency Department with chief complaint of possible . Patient states that she had one positive or negative at home no prior pregnancies denies any pain no vaginal bleeding or vaginal discharge no dysuria no hematuria no flank pain. Patient states she has OTC deficiency. Patient try to contact her specialist today unable to. Patient offers no complaints. - Related Data Home Medications Medication Instructions Recorded Confirmed Medroxyprogesterone Acetate 150 mg IM Q90D 06/20/19 06/20/19 [Depo-Provera] Previous Rx's Medication Instructions Recorded Azithromycin [Zithromax Z-pack] 0 mg PO DIRECTED #6 tab 06/20/19 Albuterol Sulfate [Proair Hfa] 1 - 2 puff INHALATION Q4H PRN #1 10/04/19 inhaler Azithromycin [Zithromax Z-pack] 0 mg PO DIRECTED #1 pack 10/04/19 Amoxicillin 875 mg PO Q12HR #14 tablet 11/06/19 Fluconazole [Diflucan] 150 mg PO ONCE #1 tab 11/06/19 Sulfamethox-Tmp 800-160Mg [Bactrim 1 tab PO Q12HR 10 Days #20 tab 11/14/19 DS 800-160 mg] Pnv No.95/Ferrous Fum/Folic AC 1 each PO DAILY #30 tablet 12/15/19 [ Multivitamin Tablet] Allergies Allergy/AdvReac Type Severity Reaction Status Date / Time amphetamine [From Adderall] Allergy Nausea Verified 12/15/19 14:02 ampicillin sodium Allergy Unknown Verified 12/15/19 14:02 [From Unasyn] aripiprazole [From Abilify] Allergy Unknown Verified 12/15/19 14:02 dextroamphetamine Allergy Nausea Verified 12/15/19 14:02 [From Adderall] sulbactam sodium Allergy Unknown Verified 12/15/19 14:02 [From Unasyn] ziprasidone HCl [From Geodon] Allergy Unknown Verified 12/15/19 14:02 ziprasidone mesylate Allergy Unknown Verified 12/15/19 14:02 [From Geodon] Review of Systems ROS Statement: Those systems with pertinent positive or pertinent negative responses have been documented in the HPI. ROS Other: All systems not noted in ROS Statement are negative. Past Medical History Past Medical History: No Reported History Additional Past Medical History / Comment(s): OTC deficicency, MIGRAINES, Ovarian Cysts History of Any Multi-Drug Resistant Organisms: None Reported Past Surgical History: No Surgical Hx Reported Past Psychological History: ADD/ADHD, Bipolar, Depression Smoking Status: Current every day smoker Past Alcohol Use History: Occasional Past Drug Use History: None Reported General Exam Limitations: no limitations General appearance: alert, in no apparent distress Head exam: Present: atraumatic, normocephalic, normal inspection Eye exam: Present: normal appearance, PERRL, EOMI. Absent: scleral icterus, conjunctival injection, periorbital swelling ENT exam: Present: normal exam, normal oropharynx, mucous membranes moist Neck exam: Present: normal inspection, full ROM. Absent: tenderness, meningismus, lymphadenopathy Respiratory exam: Present: normal lung sounds bilaterally. Absent: respiratory distress, wheezes, rales, rhonchi, stridor Cardiovascular Exam: Present: regular rate (Heart rate on exam 88), normal rhythm, normal heart sounds. Absent: systolic murmur, diastolic murmur, rubs, gallop, clicks GI/Abdominal exam: Present: soft, normal bowel sounds. Absent: distended, tenderness, guarding, rebound, rigid Back exam: Absent: CVA tenderness (R), CVA tenderness (L) Neurological exam: Present: alert, oriented X3 Skin exam: Present: warm, dry, intact, normal color. Absent: rash Course Vital Signs 12/15/19 13:56 Temperature 98.5 F Pulse Rate 119 H Respiratory 20 Rate Blood Pressure 134/81 O2 Sat by Pulse 99 Oximetry Medical Decision Making - Medical Decision Making Patient has positive test no specific complaints abdominal pain. Patient advised to call her specialist Tuesday morning and return for any worsening or changing symptoms. - Lab Data Lab Results 12/15/19 12/15/19 Range/Units 14:00 14:00 Urine Color Yellow Urine Appearance Clear (Clear) Urine pH 5.0 (5.0-8.0) Ur Specific [place] 1.023 (1.001-1.035) Urine Protein Negative (Negative) Urine Glucose (UA) Negative (Negative) Urine Ketones Negative (Negative) Urine Blood Negative (Negative) Urine Nitrite Negative (Negative) Urine Bilirubin Negative (Negative) Urine Urobilinogen <2.0 (<2.0) mg/dL Ur Leukocyte Esterase Trace H (Negative) Urine RBC 2 (0-5) /hpf Urine WBC 1 (0-5) /hpf Ur Squamous Epith Cells 4 (0-4) /hpf Urine Bacteria Occasional H (None) /hpf Urine Mucus Occasional H (None) /hpf Urine HCG, Qual Detected (Not Detectd) Disposition Clinical Impression: Disposition: HOME SELF-CARE Condition: Stable Instructions (If sedation given, give patient instructions): (ED) Additional Instructions: Please return to the Emergency Department if symptoms worsen or any other concerns. Prescriptions: Pnv No.95/Ferrous Fum/Folic AC [ Multivitamin Tablet] 1 each PO DAILY #30 tablet Is patient prescribed a controlled substance at d/c from ED?: No Referrals: None,Stated [Primary Care Provider] - 1-2 days Time of Disposition: 14:32
[2019-12-15 14:58] VITALS: PULSE 101; RESP 18
== END 2019-12-15 14:51 | disposition home or self-care (01) ==
LOC: EC 13:55
DX: Z32.01 Encounter for pregnancy test, result positive (principal); O99.280 Endocrine, nutritional and metabolic diseases complicating pregnancy, unspecified trimester; E72.4 Disorders of ornithine metabolism; O99.330 Smoking (tobacco) complicating pregnancy, unspecified trimester; F17.200 Nicotine dependence, unspecified, uncomplicated; Z88.0 Allergy status to penicillin; Z88.8 Allergy status to other drugs, medicaments and biological substances; Z79.3 Long term (current) use of hormonal contraceptives; Z3A.00 Weeks of gestation of pregnancy not specified
CPT/HCPCS: 81001; 81025; 99282

== ENCOUNTER 2019-12-25 18:08 | Emergency (ER) | payer OTHER ==
[2019-12-25 18:19] VITALS: BP 111/67; PULSE 116; RESP 22; TEMP 98.6
--- NOTE | 2019-12-25 18:48 | ED ---
Abdominal Pain HPI - General Chief Complaint: Abdominal Pain Stated Complaint: constipation Time Seen by Provider: 12/25/19 18:21 Source: patient Mode of arrival: ambulatory Limitations: no limitations - History of Present Illness Initial Comments: Patient is a 24-year-old female, currently 5 weeks , presenting to the emergency Department with complaints of constipation 4 days. Patient states she was in the ER 10 days ago for a test which was positive. She states when she started the vitamins, she's been having issues with constipation. Patient states she took a laxative yesterday and then tried an enema today without relief. She also tried prune juice which did not help. Patient states she was only able to hold in enema for approximately 2-3 seconds before needing to use the restroom. Patient denies any history of abdominal surgeries. This is her first . She denies any sharp shooting lower abdominal pains. She denies any vaginal bleeding. She states her belly just feels full, constipation. She denies fever, chills, nausea, vomiting. She has no other complaints. - Related Data Home Medications Medication Instructions Recorded Confirmed Medroxyprogesterone Acetate 150 mg IM Q90D 06/20/19 06/20/19 [Depo-Provera] Previous Rx's Medication Instructions Recorded Azithromycin [Zithromax Z-pack] 0 mg PO DIRECTED #6 tab 06/20/19 Albuterol Sulfate [Proair Hfa] 1 - 2 puff INHALATION Q4H PRN #1 10/04/19 inhaler Azithromycin [Zithromax Z-pack] 0 mg PO DIRECTED #1 pack 10/04/19 Amoxicillin 875 mg PO Q12HR #14 tablet 11/06/19 Fluconazole [Diflucan] 150 mg PO ONCE #1 tab 11/06/19 Sulfamethox-Tmp 800-160Mg [Bactrim 1 tab PO Q12HR 10 Days #20 tab 11/14/19 DS 800-160 mg] Pnv No.95/Ferrous Fum/Folic AC 1 each PO DAILY #30 tablet 12/15/19 [ Multivitamin Tablet] Polyethylene Glycol 3350 [Miralax] 17 gm PO DAILY #527 gm 12/25/19 Allergies Allergy/AdvReac Type Severity Reaction Status Date / Time amphetamine [From Adderall] Allergy Nausea Verified 04/14/20 18:19 ampicillin sodium Allergy Unknown Verified 04/14/20 18:19 [From Unasyn] aripiprazole [From Abilify] Allergy Unknown Verified 12/25/19 18:19 dextroamphetamine Allergy Nausea Verified 12/25/19 18:19 [From Adderall] sulbactam sodium Allergy Unknown Verified 12/25/19 18:19 [From Unasyn] ziprasidone HCl [From Geodon] Allergy Unknown Verified 12/25/19 18:19 ziprasidone mesylate Allergy Unknown Verified 12/25/19 18:19 [From Geodon] Review of Systems ROS Statement: Those systems with pertinent positive or pertinent negative responses have been documented in the HPI. ROS Other: All systems not noted in ROS Statement are negative. Past Medical History Past Medical History: No Reported History Additional Past Medical History / Comment(s): OTC deficicency, MIGRAINES, Ovarian Cysts History of Any Multi-Drug Resistant Organisms: None Reported Past Surgical History: No Surgical Hx Reported Past Psychological History: ADD/ADHD, Bipolar, Depression Smoking Status: Current every day smoker Past Alcohol Use History: Occasional Past Drug Use History: None Reported General Exam - General Exam Comments Initial Comments: GENERAL: Well-appearing, well-nourished and in no acute distress. Patient is laughing with her boyfriend in the room. She appears very comfortable. HEAD: Atraumatic, normocephalic. EYES: Pupils equal round and reactive to light, extraocular movements intact, sclera anicteric, conjunctiva are normal. ENT: TMs normal, nares patent, oropharynx clear without exudates. Moist mucous membranes. NECK: Normal range of motion, supple without lymphadenopathy or JVD. LUNGS: Breath sounds clear to auscultation bilaterally and equal. No wheezes rales or rhonchi. HEART: Regular rate and rhythm without murmurs, rubs or gallops. ABDOMEN: Mild left-sided abdominal pressure and palpation, no sharp shooting pains. Soft, normoactive bowel sounds. No guarding, no rebound. No masses appreciat ed. : Deferred EXTREMITIES: Normal range of motion, no pitting or edema. No clubbing or cyanosis. NEUROLOGICAL: Normal speech, normal gait. PSYCH: Normal mood, normal affect. SKIN: Warm, Dry, normal turgor, no rashes or lesions noted. Limitations: no limitations Course Vital Signs 12/25/19 18:17 Temperature 98.6 F Pulse Rate 116 H Respiratory 22 Rate Blood Pressure 111/67 O2 Sat by Pulse 99 Oximetry Medical Decision Making - Medical Decision Making Patient is a 24-year-old female, currently 5 weeks , presenting with constipation 4 days. Patient's vitals stable. On exam, patient has very mild left-sided pressure on palpation, no sharp shooting pains. No history of abdominal surgeries. No vaginal bleeding or dysuria. Discussed with patient that her symptoms do seem to be constipation. We discussed doing another enema but holding this in for at least 10-15 minutes before trying to have another bowel movement. Patient should also take a stool softener such as MiraLAX for 2 weeks until she is back to her regular pattern. Patient needs to drink a lot of water as she states she does not drink any water. Strict return parameters were discussed with the patient she verbalized understanding. She stable for discharge and in agreement with this plan of care. Case discussed with Dr. Ceja. Disposition Clinical Impression: Constipation, Disposition: HOME SELF-CARE Condition: Stable Instructions (If sedation given, give patient instructions): Constipation (ED) Additional Instructions: Please return to the Emergency Department if symptoms worsen or any other concerns. May repeat enema at home. Please try to hold the enema for at least 10-15 minutes up to 20 minutes. May also taking MiraLAX once a day for 2 weeks for regularity. Follow-up with PCP. Prescriptions: Polyethylene Glycol 3350 [Miralax] 17 gm PO DAILY #527 gm Is patient prescribed a controlled substance at d/c from ED?: No Referrals: None,Stated [Primary Care Provider] - 1-2 days
== END 2019-12-25 18:40 | disposition home or self-care (01) ==
LOC: EC 18:08
DX: O26.891 Other specified pregnancy related conditions, first trimester (principal); K59.00 Constipation, unspecified; O99.331 Smoking (tobacco) complicating pregnancy, first trimester; F17.200 Nicotine dependence, unspecified, uncomplicated; Z3A.01 Less than 8 weeks gestation of pregnancy; Z88.1 Allergy status to other antibiotic agents; Z88.8 Allergy status to other drugs, medicaments and biological substances
CPT/HCPCS: 99283

== ENCOUNTER → 2020-02-28 | Outpatient (CLI) | payer OTHER ==
--- NOTE | 2020-02-29 07:42 | US ---
EXAMINATION TYPE: US OB >= 14 wk fetus DATE OF EXAM: 02/28/2020 COMPARISON: None CLINICAL HISTORY: Z36 Confirm datesDates TECHNIQUE: GESTATIONAL AGE / DATING Physician Established: (15 weeks/0 days) EDC: 08/21/2020 Dates by First Scan: No previous this is first scan Dates by Current Scan: (15 weeks/5 days) EDC: 08/16/2020 SURVEY IUP: Single PLACENTA: Right lateral PREVIA: Low Lying- Tip of placenta 1.0 cm from internal os EVETTE: 12.3 cm Normal CERVICAL LENGTH (transabdominal: norm > 3.0cm): 3.6 cm BIOMETRY PRESENTATION: Breech BPD: 3.0 cm 15 weeks / 4 days HC: 11.7 cm 15 weeks / 6 days AC: 9.5 cm 15 weeks / 5 days FL: 1.8 cm 15 weeks / 3 days ESTIMATED WEIGHT IN GRAMS: 126 grams ESTIMATED WEIGHT IN LBS/OZ: 0 lbs. 4 oz. WEIGHT PERCENTAGE BASED ON ESTABLISHED DATES: 74% HC/AC: 1.2 Normal FL/AC: 19 % HEART RATE: 169 bpm RHYTHM: Normal Single IUP measuring 15 weeks 5 days. Low lying placenta. IMPRESSION: 1. Single intrauterine gestation estimated at 15 weeks 5 days gestation based on the current ultrasou nd measurements. Cardiac activity measures 169 bpm was observed during the study. 2. Low-lying placenta.
== END | disposition home or self-care (01) ==
LOC: RADUSWWP 16:11
PROVIDERS: ATTEND Obstetrics & Gynecology
DX: Z3A.15 15 weeks gestation of pregnancy (principal); O44.42 Low lying placenta NOS or without hemorrhage, second trimester; Z88.0 Allergy status to penicillin; Z88.8 Allergy status to other drugs, medicaments and biological substances
CPT/HCPCS: 76805

== ENCOUNTER 2020-04-21 07:22 | Emergency (ER) | payer OTHER ==
[2020-04-21 07:31] VITALS: BP 91/64; PULSE 86; RESP 18; TEMP 98.1
--- NOTE | 2020-04-21 07:52 | ED ---
URI HPI - General Source: patient Mode of arrival: ambulatory Limitations: no limitations <Tanika Ramos - Last Filed: 04/21/20 08:17> <AgathaFrancisca Pool - Last Filed: 04/24/20 02:28> - General Chief Complaint: Upper Respiratory Infection Stated Complaint: Cold symptoms Time Seen by Provider: 04/21/20 07:32 - History of Present Illness Initial Comments: 24yo female who is currently 6 months presenting to the ER today for cc of congestion, ear fullness/pain on the left side. She states she's had congest ion and slight cough for the past week she states she now is having ear fullness, muffled hearing and pain on the left side. Concern for infection. Patient states thats the only thing she is concerned about. Denies CP, SOB, sore throat or fevers. She denies abdominal pain, v omiting, diarrhea, or vaginal bleeding. Patient appears well in no distress on arrival. T WNL. (Tanika Ramos) - Related Data Home Medications Medication Instructions Recorded Confirmed Medroxyprogesterone Acetate 150 mg IM Q90D 06/20/19 06/20/19 [Depo-Provera] Previous Rx's Medication Instructions Recorded Azithromycin [Zithromax Z-pack] 0 mg PO DIRECTED #6 tab 06/20/19 Albuterol Sulfate [Proair Hfa] 1 - 2 puff INHALATION Q4H PRN #1 10/04/19 inhaler Azithromycin [Zithromax Z-pack] 0 mg PO DIRECTED #1 pack 10/04/19 Amoxicillin 875 mg PO Q12HR #14 tablet 11/06/19 Fluconazole [Diflucan] 150 mg PO ONCE #1 tab 11/06/19 Sulfamethox-Tmp 800-160Mg [Bactrim 1 tab PO Q12HR 10 Days #20 tab 11/14/19 DS 800-160 mg] Pnv No.95/Ferrous Fum/Folic AC 1 each PO DAILY #30 tablet 12/15/19 [ Multivitamin Tablet] Polyethylene Glycol 3350 [Miralax] 17 gm PO DAILY #527 gm 12/25/19 Azithromycin [Zithromax Z-pack] 0 mg PO DIRECTED #6 tab 04/21/20 Allergies Allergy/AdvReac Type Severity Reaction Status Date / Time amphetamine [From Adderall] Allergy Nausea Verified 04/21/20 07:31 ampicillin sodium Allergy Unknown Verified 04/21/20 07:31 [From Unasyn] aripiprazole [From Abilify] Allergy Unknown Verified 04/21/20 07:31 dextroamphetamine Allergy Nausea Verified 04/21/20 07:31 [From Adderall] sulbactam sodium Allergy Unknown Verified 04/21/20 07:31 [From Unasyn] ziprasidone HCl [From Geodon] Allergy Unknown Verified 04/21/20 07:31 ziprasidone mesylate Allergy Unknown Verified 04/21/20 07:31 [From Geodon] Review of Systems ROS Other: All systems not noted in ROS Statement are negative. <Tanika Ramos - Last Filed: 04/21/20 08:17> ROS Other: All systems not noted in ROS Statement are negative. <Francisca Snider - Last Filed: 04/24/20 02:28> ROS Statement: Those systems with pertinent positive or pertinent negative responses have been documented in the HPI. Past Medical History Past Medical History: No Reported History Additional Past Medical History / Comment(s): OTC deficicency, MIGRAINES, Ovarian Cysts History of Any Multi-Drug Resistant Organisms: None Reported Past Surgical History: No Surgical Hx Reported Past Psychological History: ADD/ADHD, Bipolar, Depression Smoking Status: Never smoker Past Alcohol Use History: None Reported Past Drug Use History: None Reported <Tanika aRmos - Last Filed: 04/21/20 08:17> General Exam Limitations: no limitations <Tanika Ramos - Last Filed: 04/21/20 08:17> - General Exam Comments Initial Comments: General: The patient is awake and alert, in no distress, and does not appear acutely ill. Eye: +3 mm pupils are equal, round and reactive to light, extra-ocular movements are intact. No nystagmus. There is normal conjunctiva bilaterally. No signs of icterus. No photophobia Ears, nose, mouth and throat: There are moist mucous membranes and no oral lesions. Oropharynx was not erythematous there is no tonsillar enlargement exudates or lesions. Uvula midline. TLeft TM is erythematous mildly, right is non erythematous. No tenderness to palpation of the mastoid. No anterior cervical lymphadenopathy. Rhinorrhea, clear and bilateral nares. No tripoding, no drooling. Neck: The neck is supple, there is no tenderness or JVD. No nuchal rigidity Cardiovascular: There is a regular rate and rhythm. No murmur, rub or gallop is appreciated. Respiratory: Lungs are clear to auscultation, respirations are non-labored, breath sounds are equal. No wheezes, stridor, rales, or rhonchi. No retractions or abdominal breathing. Gastrointestinal: Soft, consistent with weeks gestation, non-tender abdomen without masses or organomegaly noted. There is no rebound or guarding present. Bowel sounds are unremarkable. Musculoskeletal: Normal ROM, no tenderness. Strength 5/5. Sensation intact. Radial pulses equal bilaterally 2+. Neurological: A&O x 3. CN II-XII intact, There are no obvious motor or sensory deficits. Coordination appears grossly intact. Speech appears normal, no muffling. Skin: Skin is warm and dry and no rashes or lesions are noted. No extremity edema Psychiatric: Cooperative (Tanika Ramos) Course Vital Signs 04/21/20 07:29 Temperature 98.1 F Pulse Rate 86 Respiratory 18 Rate Blood Pressure 91/64 O2 Sat by Pulse 100 Oximetry Medical Decision Making <Tanika Ramos - Last Filed: 04/21/20 08:17> <Francisca Snider - Last Filed: 04/24/20 02:28> - Medical Decision Making 24yo female with PCN allergy, currently presenting for left ear pain/fullness/muffling. No signs of mastoiditis. Patient nontoxic in appearance. Lungs clear. Throat WNL. Patient VS wtihin acceptable limits. She is no distress. TM concerning for mild otitis media. Given allergies will treat with azithromycin. Patient is to f//u with PCP and OBGYN patient agreeable to care plan and discharge. Case discussed with Vipul Snider (Tanika Ramos) I was available for consultation in the emergency department. The history and physical exam were done by the midlevel provider. I was consulted for this patients care. I reviewed the case with the midlevel provider and based on their presentation of the patient, I agree with the assessment, medical decision making and plan of care as documented. Chart was dictated using [employer] dictation software. Attempts were made to correct any dictation errors however some typographical errors may persist. Patient was seen during a national state of emergency due to the Covid-19 pandemic. (Francisca Snider) Disposition Is patient prescribed a controlled substance at d/c from ED?: No Time of Disposition: 07:52 <Tanika Ramos - Last Filed: 04/21/20 08:17> <Francisca Snider - Last Filed: 04/24/20 02:28> Clinical Impression: Cough, Congestion of nasal sinus, Left ear pain Disposition: HOME SELF-CARE Condition: Good Instructions (If sedation given, give patient instructions): Ear Infection (ED) Additional Instructions: Please use medication as discussed. Please follow-up with family doctor in the next 2 days. Please return to emergency room if the symptoms increase or worsen or for any other concerns. Prescriptions: Azithromycin [Zithromax Z-pack] 0 mg PO DIRECTED #6 tab Referrals: None,Stated [Primary Care Provider] - 1-2 days
== END 2020-04-21 08:16 | disposition home or self-care (01) ==
LOC: EC 07:22
DX: O99.89 Other specified diseases and conditions complicating pregnancy, childbirth and the puerperium (principal); R05 Cough; R09.81 Nasal congestion; H92.02 Otalgia, left ear; Z79.3 Long term (current) use of hormonal contraceptives; Z88.8 Allergy status to other drugs, medicaments and biological substances; Z88.0 Allergy status to penicillin; Z3A.00 Weeks of gestation of pregnancy not specified
CPT/HCPCS: 99283

== ENCOUNTER 2020-04-26 20:42 | Emergency (ER) | payer OTHER ==
[2020-04-26 21:02] VITALS: BP 101/65; PULSE 61; RESP 18; TEMP 98.1
[2020-04-26] MEDS ORDERED: AMOXIC-POT CLAV 875MG STARTER PACK 2 TAB BTL PO STA (21:24)
--- NOTE | 2020-04-26 21:26 | ED ---
General Adult HPI - General Chief complaint: Recheck/Abnormal Lab/Rx Stated complaint: ENT Time Seen by Provider: 04/26/20 20:45 Source: patient, RN notes reviewed Mode of arrival: ambulatory Limitations: no limitations - History of Present Illness Initial comments: Harmony is a 24-year-old female presenting for left ear pain. This has been ongoing for about 2 weeks. Patient did take a course of azithromycin and it did not help. Patient is trying Flonase which is not helping. She denies fevers or chills. Denies headache or neck stiffness. Patient is currently 6 months . Patient has no other complaints at this time including shortness of breath, chest pain, abdominal pain, nausea or vomiting, headache, or visual changes. - Related Data Home Medications Medication Instructions Recorded Confirmed Medroxyprogesterone Acetate 150 mg IM Q90D 06/20/19 06/20/19 [Depo-Provera] Previous Rx's Medication Instructions Recorded Azithromycin [Zithromax Z-pack] 0 mg PO DIRECTED #6 tab 06/20/19 Albuterol Sulfate [Proair Hfa] 1 - 2 puff INHALATION Q4H PRN #1 10/04/19 inhaler Azithromycin [Zithromax Z-pack] 0 mg PO DIRECTED #1 pack 10/04/19 Amoxicillin 875 mg PO Q12HR #14 tablet 11/06/19 Fluconazole [Diflucan] 150 mg PO ONCE #1 tab 11/06/19 Sulfamethox-Tmp 800-160Mg [Bactrim 1 tab PO Q12HR 10 Days #20 tab 11/14/19 DS 800-160 mg] Pnv No.95/Ferrous Fum/Folic AC 1 each PO DAILY #30 tablet 12/15/19 [ Multivitamin Tablet] Polyethylene Glycol 3350 [Miralax] 17 gm PO DAILY #527 gm 12/25/19 Azithromycin [Zithromax Z-pack] 0 mg PO DIRECTED #6 tab 04/21/20 Allergies Allergy/AdvReac Type Severity Reaction Status Date / Time amphetamine [From Adderall] Allergy Nausea Verified 04/26/20 21:03 ampicillin sodium Allergy Unknown Verified 04/26/20 21:03 [From Unasyn] aripiprazole [From Abilify] Allergy Unknown Verified 04/26/20 21:03 dextroamphetamine Allergy Nausea Verified 04/26/20 21:03 [From Adderall] sulbactam sodium Allergy Unknown Verified 04/26/20 21:03 [From Unasyn] ziprasidone HCl [From Geodon] Allergy Unknown Verified 04/26/20 21:03 ziprasidone mesylate Allergy Unknown Verified 04/26/20 21:03 [From Geodon] Review of Systems ROS Statement: Those systems with pertinent positive or pertinent negative responses have been documented in the HPI. ROS Other: All systems not noted in ROS Statement are negative. Past Medical History Past Medical History: No Reported History Additional Past Medical History / Comment(s): OTC deficicency, MIGRAINES, Ovarian Cysts History of Any Multi-Drug Resistant Organisms: None Reported Past Surgical History: No Surgical Hx Reported Past Psychological History: ADD/ADHD, Bipolar, Depression Smoking Status: Never smoker Past Alcohol Use History: None Reported Past Drug Use History: None Reported General Exam Limitations: no limitations General appearance: alert, in no apparent distress Head exam: Present: atraumatic, normocephalic, normal inspection Eye exam: Present: normal appearance, PERRL, EOMI. Absent: scleral icterus, conjunctival injection, periorbital swelling ENT exam: Present: normal oropharynx, mucous membranes moist, normal external ear exam. Absent: TM's normal bilaterally (left tympanic membrane is erythematous however there is no evidence of perforation.right tympanic membrane appears normal) Neck exam: Present: normal inspection, full ROM. Absent: tenderness, meningismus, lymphadenopathy Respiratory exam: Present: normal lung sounds bilaterally. Absent: respiratory distress, wheezes, rales, rhonchi, stridor Cardiovascular Exam: Present: regular rate, normal rhythm, normal heart sounds. Absent: systolic murmur, diastolic murmur, rubs, gallop, clicks Course Vital Signs 04/26/20 21:00 Temperature 98.1 F Pulse Rate 61 Respiratory 18 Rate Blood Pressure 101/65 O2 Sat by Pulse 98 Oximetry Medical Decision Making - Medical Decision Making patient will be treated with Augmentin.this is a category B. She states she has never had an issue with oral penicillins in regards to ALLERGIES. she will continue Flonase. She was given a referral to ENT. She will follow up with them or primary care. She'll return for any worsening symptoms. Disposition Clinical Impression: Otitis media Disposition: HOME SELF-CARE Condition: Good Instructions (If sedation given, give patient instructions): Ear Infection (ED) Additional Instructions: please take Augmentin as directed. take Tylenol for pain. Please follow-up with primary care or ENT. Return to the emergency room for any worsening symptoms. Is patient prescribed a controlled substance at d/c from ED?: No Referrals: Armando Damico DO [Doctor of Osteopathic Medicine] - 1-2 days Time of Disposition: 21:26
== END 2020-04-26 21:44 | disposition home or self-care (01) ==
LOC: EC 20:42
DX: O99.351 Diseases of the nervous system complicating pregnancy, first trimester (principal); H66.92 Otitis media, unspecified, left ear; Z88.8 Allergy status to other drugs, medicaments and biological substances; Z88.0 Allergy status to penicillin; Z88.2 Allergy status to sulfonamides; Z79.3 Long term (current) use of hormonal contraceptives; Z3A.01 Less than 8 weeks gestation of pregnancy
CPT/HCPCS: 99283

== ENCOUNTER 2020-07-08 14:57 | Outpatient (CLI) | payer OTHER ==
[2020-07-08] MEDS ORDERED: diphenhydrAMINE 50 MG CAP PO STA (15:34)
[2020-07-08] MEDS ORDERED: ACETAMINOPHEN TAB 500 MG TAB PO STA (15:34)
[2020-07-08 15:50] LABS: Appearance,Urine Cloudy (Clear); Bacteria,Urine Rare /hpf; Bilirubin,Urine Negative (Negative); Blood,Urine Negative (Negative); Color,Urine Light Yellow; Glucose,Urine (UA) Negative (Negative); Ketones,Urine Negative (Negative); Leukocyte Esterase,Urine Moderate (Negative); Mucus,Urine Rare /hpf; Nitrite,Urine Negative (Negative); Protein,Urine Negative (Negative); RBC,Urine <1 /hpf (0-5); Specific Gravity,Urine 1.022 (1.001-1.035); Squamous Epithelial Cell,Urine 2 /hpf (0-4); Urobilinogen,Urine <2.0 mg/dL (<2.0); WBC,Urine 2 /hpf (0-5)
[2020-07-08 16:20] VITALS: BP 130/69; PULSE 82; RESP 18; TEMP 96.5
--- NOTE | 2020-07-10 17:44 | P.MSEPDOC ---
Presenting Problems - Arrival Data Date of Arrival on Unit: 07/08/20 Time of Arrival on Unit: 14:57 Mode of Transport: Ambulatory - Complaint OB-Reason for Admission/Chief Complaint: Headache, Dizziness Comment: pt having headache for 4 days, nausea, dizziness, Medical History - Information : 1 Para: 0 Term: 0 : 0 Abortions: Spontaneous or Elective: 0 Number of Living Children: 0 - Gestational Age Gestational Age by PAU (wks/days): 33 Weeks and 5 Days Review of Systems - Review of Systems Constitutional: No problems Breast: No problems ENT: No problems Cardiovascular: No problems Respiratory: No problems Gastrointestinal: No problems Genitourinary: No problems Musculoskeletal: No problems Neurological: No problems Skin: No problems Vital Signs - Temperature Temperature: 96.5 F Temperature Source: Temporal Artery Scan - Pulse Right Brachial Pulse Rate: 82 Pulse Assessment Method: Automatic Cuff - Respirations Respiratory Rate: 18 Oxygen Delivery Method: Room Air O2 Sat by Pulse Oximetry: 98 - Blood Pressure Right Arm Blood Pressure: 130/69 Blood Pressure Mean: 89 Blood Pressure Source: Automatic Cuff Medical Screen Scoring (Pre) - Cervical Exam Dilation: Exam Deferred Effacement: Exam Deferred Membranes: Intact - Uterine Contractions Frequency: N/A Duration: N/A Intensity: N/A - Maternal Vital Signs Maternal Temperature: N/A Maternal Blood Pressure: N/A Signs of Preeclampsia: N/A Maternal Respirations: N/A - Maternal Trauma Maternal Trauma: N/A - Assessment - Baby A Baseline FHR: 140 Heart Rate - NICHD Category: Category I (Normal) = 0 NST: Reactive Position: N/A Station: N/A - Total Score - Baby A Total Score - Baby A: 0 - Total Score - Baby B Total Score - Baby B: 0 - Total Score - Baby C Total Score - Baby C: 0 - Level of Risk - Baby A Level of Risk - Baby A: Low (0-5) - Level of Risk - Baby B Level of Risk - Baby B: Low (0-5) - Level of Risk - Baby C Level of Risk - Baby C: Low (0-5) Physician Notification (Pre) - Physician Notified Physician Notified Date: 07/08/20 Physician Notified Time: 16:10 New Order Received: Yes - Notification Comment Comment: UA and covid swab ordered, pt going to take benadryl 50 mg and tylenol 1000 mg po at home Disposition - Disposition OB Disposition: Discharge to home, Written follow up instructions reviewed Discharge Date: 07/08/20 Discharge Time: 16:15 I agree with the RN Medical Screening Exam: Yes Risk & Benefit of care provided described in d/c instruction: Yes Diagnosis: HEADACHE, UNSPECIFIED
== END 2020-07-08 16:15 | disposition home or self-care (01) ==
LOC: FBPOP 14:57
PROVIDERS: ATTEND Obstetrics & Gynecology
DX: O99.891 Other specified diseases and conditions complicating pregnancy (principal); Z3A.33 33 weeks gestation of pregnancy
CPT/HCPCS: 59025; 81001; G0463; U0003; 99213

== ENCOUNTER 2020-07-21 11:20 | Emergency (ER) | payer OTHER ==
[2020-07-21 11:36] VITALS: BP 131/90; PULSE 83; RESP 18; TEMP 98.5
--- NOTE | 2020-07-21 11:56 | ED ---
URI HPI - General Chief Complaint: Upper Respiratory Infection Stated Complaint: cough/35weeks preg/need covid test Time Seen by Provider: 07/21/20 11:44 Source: patient, RN notes reviewed Mode of arrival: ambulatory Limitations: no limitations - History of Present Illness Initial Comments: this is a 25-year-old female presents emergency Department chief complaint of nasal congestion. Patient states that she had no exposure to covid Patient states that she was advised to be screened that she is 35 weeks . She denies any chest pain or shortness of breath. Patient denies fever, chills, ear pain, headache or dizziness no GI symptoms. - Related Data Home Medications Medication Instructions Recorded Confirmed Omeprazole 20 mg PO DAILY 07/08/20 07/08/20 Previous Rx's Medication Instructions Recorded Albuterol Sulfate [Proair Hfa] 1 - 2 puff INHALATION Q4H PRN #1 10/04/19 inhaler Pnv No.95/Ferrous Fum/Folic AC 1 each PO DAILY #30 tablet 12/15/19 [ Multivitamin Tablet] Allergies Allergy/AdvReac Type Severity Reaction Status Date / Time amphetamine [From Adderall] Allergy Nausea Verified 07/21/20 11:36 ampicillin sodium Allergy Rash/Hives Verified 07/21/20 11:36 [From Unasyn] aripiprazole [From Abilify] Allergy Nausea & Verified 07/21/20 11:36 Vomiting dextroamphetamine Allergy Nausea Verified 07/21/20 11:36 [From Adderall] sulbactam sodium Allergy Rash/Hives Verified 07/21/20 11:36 [From Unasyn] ziprasidone HCl [From Geodon] Allergy Nausea Verified 07/21/20 11:36 ziprasidone mesylate Allergy Nausea Verified 07/21/20 11:36 [From Geodon] Review of Systems ROS Statement: Those systems with pertinent positive or pertinent negative responses have been documented in the HPI. ROS Other: All systems not noted in ROS Statement are negative. Past Medical History Past Medical History: No Reported History Additional Past Medical History / Comment(s): OTC deficicency, MIGRAINES, Ovarian Cysts History of Any Multi-Drug Resistant Organisms: None Reported Past Surgical History: No Surgical Hx Reported Past Psychological History: ADD/ADHD, Bipolar, Depression Smoking Status: Former smoker General Exam Limitations: no limitations General appearance: alert, in no apparent distress Head exam: Present: atraumatic, normocephalic, normal inspection Eye exam: Present: normal appearance, PERRL, EOMI. Absent: scleral icterus, conjunctival injection, periorbital swelling ENT exam: Present: normal exam, normal oropharynx, mucous membranes moist Neck exam: Present: normal inspection, full ROM. Absent: tenderness, meningismus, lymphadenopathy Respiratory exam: Present: normal lung sounds bilaterally. Absent: respiratory distress, wheezes, rales, rhonchi, stridor Cardiovascular Exam: Present: regular rate, normal rhythm, normal heart sounds. Absent: systolic murmur, diastolic murmur, rubs, gallop, clicks Course Vital Signs 07/21/20 11:32 Temperature 98.5 F Pulse Rate 83 Respiratory 18 Rate Blood Pressure 131/90 O2 Sat by Pulse 98 Oximetry Medical Decision Making - Medical Decision Making patient presented for covid testing. Patient has pending testing patient will be updated if positive test Patient discharged in stable condition Disposition Clinical Impression: Encounter for laboratory testing for COVID-19 virus Disposition: HOME SELF-CARE Condition: Stable Instructions (If sedation given, give patient instructions): Upper Respiratory Infection (ED) Additional Instructions: Please return to the Emergency Department if symptoms worsen or any other concerns. Is patient prescribed a controlled substance at d/c from ED?: No Referrals: None,Stated [Primary Care Provider] - 1-2 days Time of Disposition: 11:56
== END 2020-07-21 12:08 | disposition home or self-care (01) ==
LOC: EC 11:20
DX: O99.891 Other specified diseases and conditions complicating pregnancy (principal); R09.81 Nasal congestion; Z88.1 Allergy status to other antibiotic agents; Z88.8 Allergy status to other drugs, medicaments and biological substances; Z87.891 Personal history of nicotine dependence; Z20.828 Contact with and (suspected) exposure to other viral communicable diseases; Z3A.35 35 weeks gestation of pregnancy
CPT/HCPCS: 87635; 99283

== ENCOUNTER 2020-07-25 07:39 | Outpatient (CLI) | payer OTHER ==
[2020-07-25 08:29] LABS: Appearance,Urine Cloudy (Clear); Bacteria,Urine Few /hpf; Bilirubin,Urine Negative (Negative); Blood,Urine Trace (Negative); Color,Urine Yellow; Glucose,Urine (UA) Negative (Negative); Ketones,Urine Negative (Negative); Leukocyte Esterase,Urine Large (Negative); Mucus,Urine Many /hpf; Nitrite,Urine Negative (Negative); Protein,Urine 2+ (Negative); RBC,Urine 3 /hpf (0-5); Specific Gravity,Urine 1.019 (1.001-1.035); Squamous Epithelial Cell,Urine 13 /hpf (0-4); Urobilinogen,Urine <2.0 mg/dL (<2.0); WBC,Urine 23 /hpf (0-5)
[2020-07-25 08:47] VITALS: BP 138/98; PULSE 93; RESP 16; TEMP 98
[2020-07-25 09:41] LABS: Basophils % (A) 0 %; Eosinophils # (A) 0.1 k/uL (0-0.7); Eosinophils % (A) 1 %; HCT 36.1 % (34.0-46.0); Lymphocytes # (A) 2.2 k/uL (1.0-4.8); Lymphocytes % (A) 22 %; MCH 29.7 pg (25.0-35.0); MCHC 33.1 g/dL (31.0-37.0); MCV 89.7 fL (80.0-100.0); Monocytes # (A) 0.4 k/uL (0-1.0); Monocytes % (A) 4 %; Neutrophils % (A) 71 %; Platelet Count 156 k/uL (150-450); RBC 4.03 m/uL (3.80-5.40); RDW 13.9 % (11.5-15.5); WBC 9.9 k/uL (3.8-10.6)
[2020-07-25 09:45] LABS: ALT 12 U/L (4-34); AST 18 U/L (14-36); African American GFR (CKD) >90 (>60 ml/min/1.73 sqM); Albumin 2.8 g/dL (3.5-5.0); Alkaline Phosphatase 175 U/L (38-126); Anion Gap 2 mmol/L; Blood Urea Nitrogen 14 mg/dL (7-17); Calcium 8.8 mg/dL (8.4-10.2); Carbon Dioxide 27 mmol/L (22-30); Chloride 106 mmol/L (98-107); Glucose 77 mg/dL (74-99); LDH 442 U/L (313-618); Non-African American GFR(CKD) >90 (>60 ml/min/1.73 sqM); Potassium 4.5 mmol/L (3.5-5.1); Sodium 135 mmol/L (137-145); Total Bilirubin 0.5 mg/dL (0.2-1.3); Total Protein 5.4 g/dL (6.3-8.2); Uric Acid 6.3 mg/dL (3.7-7.4)
[2020-07-25 09:54] LABS: Creatinine,Urine Random 130.8 mg/dL; Protein/Creatinine Ratio,Urine 1.514
--- NOTE | 2020-08-04 13:05 | P.MSEPDOC ---
Presenting Problems - Arrival Data Date of Arrival on Unit: 07/25/20 Time of Arrival on Unit: 07:39 Mode of Transport: Ambulatory - Complaint OB-Reason for Admission/Chief Complaint: Pain Comment: Pt arrives to triage c/o left sided suprapubic pain and back pain x3 days. Pt also states N/V/D x 1 wk. Medical History - Information : 1 Para: 0 Term: 0 : 0 Abortions: Spontaneous or Elective: 0 Number of Living Children: 0 - Gestational Age Gestational Age by APU (wks/days): 36 Weeks and 1 Days Review of Systems - Review of Systems Constitutional: No problems Breast: No problems ENT: No problems Cardiovascular: No problems Respiratory: No problems Gastrointestinal: No problems Genitourinary: No problems Musculoskeletal: No problems Neurological: No problems Skin: No problems Vital Signs - Temperature Temperature: 98 F Temperature Source: Oral - Pulse Right Sitting Brachial Pulse Rate: 93 Pulse Assessment Method: Automatic Cuff - Respirations Respiratory Rate: 16 Oxygen Delivery Method: Room Air O2 Sat by Pulse Oximetry: 98 - Blood Pressure Right Arm Sitting Blood Pressure: 138/98 Blood Pressure Mean: 111 Blood Pressure Source: Automatic Cuff Medical Screen Scoring (Pre) - Cervical Exam Dilation: Exam Deferred Effacement: Exam Deferred - Uterine Contractions Frequency: N/A Duration: N/A Intensity: N/A - Maternal Vital Signs Maternal Temperature: N/A Maternal Blood Pressure: N/A Signs of Preeclampsia: N/A Maternal Respirations: N/A - Maternal Trauma Maternal Trauma: N/A - Assessment - Baby A Baseline FHR: 145 Heart Rate - NICHD Category: Category I (Normal) = 0 NST: Reactive Position: N/A Station: N/A - Total Score - Baby A Total Score - Baby A: 0 - Total Score - Baby B Total Score - Baby B: 0 - Total Score - Baby C Total Score - Baby C: 0 - Level of Risk - Baby A Level of Risk - Baby A: Low (0-5) - Level of Risk - Baby B Level of Risk - Baby B: Low (0-5) - Level of Risk - Baby C Level of Risk - Baby C: Low (0-5) Physician Notification (Pre) - Physician Notified Physician Notified Date: 07/25/20 Physician Notified Time: 08:40 New Order Received: Yes - Notification Comment Comment: Spk c\Dr. Montgomery, advsd , 36 09/18, pt of Dr. Canales's that has been. referred to high risk for delivery r/t OTC. Pt c/o N/V/D x 1 wk, left sided suprapubic. and lower back pain. BP reviewed, UA reviewed. States to order [facility] labs and CMP. Physician Notification (Post) - Physician Notified Physician Notified Date: 07/25/20 Physician Notified Time: 09:56 Physician/Practitioner Notified:: Ulises Spoke With: Ulises New Order Received: Yes - Notification Comment Comment: Spk c\Dr. Montgomery, reviewed pts labs and serial BPs as well as patients request for a COVID test. Dr. Montgomery orders COVID test and states pt may be d/c home to follow up as scheduled. Disposition - Disposition OB Disposition: Discharge to home, Written follow up instructions reviewed I agree with the RN Medical Screening Exam: Yes Risk & Benefit of care provided described in d/c instruction: Yes Diagnosis: FALSE LABOR BEFORE 37 COMPLETED WEEKS OF GEST, THIRD TRI
== END 2020-07-25 10:08 | disposition home or self-care (01) ==
LOC: FBPOP 07:39
PROVIDERS: ATTEND Obstetrics & Gynecology
DX: O47.03 False labor before 37 completed weeks of gestation, third trimester (principal); Z3A.36 36 weeks gestation of pregnancy
CPT/HCPCS: 59025; 82570; 80053; 84156; 83615; 84520; 84550; 85025; 81001; 87635; G0463; 99215

== ENCOUNTER 2020-09-01 20:27 | Emergency (ER) | payer OTHER ==
[2020-09-01 20:32] VITALS: BP 105/72; PULSE 87; RESP 16; TEMP 99
--- NOTE | 2020-09-01 20:52 | ED ---
General Adult HPI - General Chief complaint: ENT Stated complaint: Sore Throat, Ear pain Time Seen by Provider: 09/01/20 20:34 Source: patient, RN notes reviewed Mode of arrival: ambulatory Limitations: no limitations - History of Present Illness Initial comments: 25-year-old female with a past medical history of migraines, ovarian cysts presents to the emergency room for a chief ccomplaint of congestion. Patient has had nasal congestion for 3 or 4 weeks now. States she is also had scratching in her throat. Also states that her eyes are itchy sometimes. She reports that she did try Flonase and Fouzia for a couple days but it did not seem to help. She denies fevers or chills. She denies swelling of her face. Denies cough or shortness of breath.Patient has no other complaints at this time including shortness of breath, chest pain, abdominal pain, nausea or vomiting, headache, or visual changes. 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 - Related Data Home Medications Medication Instructions Recorded Confirmed Omeprazole 20 mg PO DAILY 07/08/20 07/25/20 Previous Rx's Medication Instructions Recorded Albuterol Sulfate [Proair Hfa] 1 - 2 puff INHALATION Q4H PRN #1 10/04/19 inhaler Pnv No.95/Ferrous Fum/Folic AC 1 each PO DAILY #30 tablet 12/15/19 [ Multivitamin Tablet] Azithromycin [Zithromax Z-pack (6 250 mg PO DIRECTED #6 tab 09/01/20 tabs)] Allergies Allergy/AdvReac Type Severity Reaction Status Date / Time amphetamine [From Adderall] Allergy Nausea Verified 09/01/20 20:33 ampicillin sodium Allergy Rash/Hives Verified 09/01/20 20:33 [From Unasyn] aripiprazole [From Abilify] Allergy Nausea & Verified 09/01/20 20:33 Vomiting dextroamphetamine Allergy Nausea Verified 09/01/20 20:33 [From Adderall] sulbactam sodium Allergy Rash/Hives Verified 09/01/20 20:33 [From Unasyn] ziprasidone HCl [From Geodon] Allergy Nausea Verified 09/01/20 20:33 ziprasidone mesylate Allergy Nausea Verified 09/01/20 20:33 [From Geodon] Review of Systems ROS Statement: Those systems with pertinent positive or pertinent negative responses have been documented in the HPI. ROS Other: All systems not noted in ROS Statement are negative. Past Medical History Past Medical History: No Reported History Additional Past Medical History / Comment(s): OTC deficicency, MIGRAINES, Ovarian Cysts History of Any Multi-Drug Resistant Organisms: None Reported Past Surgical History: No Surgical Hx Reported Past Psychological History: ADD/ADHD, Bipolar, Depression Smoking Status: Former smoker Past Alcohol Use History: None Reported Past Drug Use History: None Reported General Exam Limitations: no limitations General appearance: alert, in no apparent distress Head exam: Present: atraumatic, normocephalic, normal inspection Eye exam: Present: normal appearance, PERRL, EOMI. Absent: scleral icterus, conjunctival injection, periorbital swelling ENT exam: Present: normal exam, normal oropharynx (Non-erythematous. No tonsill ar exudates bilaterally. Uvula midline.), mucous membranes moist, TM's normal bilaterally (Nonerythematous, nonbulging), normal external ear exam Neck exam: Present: normal inspection, full ROM. Absent: tenderness, meningismus, lymphadenopathy Respiratory exam: Present: normal lung sounds bilaterally. Absent: respiratory distress, wheezes, rales, rhonchi, stridor Cardiovascular Exam: Present: regular rate, normal rhythm, normal heart sounds. Absent: systolic murmur, diastolic murmur, rubs, gallop, clicks GI/Abdominal exam: Present: soft, normal bowel sounds. Absent: distended, tenderness, guarding, rebound, rigid Course Vital Signs 09/01/20 20:29 Temperature 99.0 F Pulse Rate 87 Respiratory 16 Rate Blood Pressure 105/72 O2 Sat by Pulse 97 Oximetry Medical Decision Making - Medical Decision Making Patient presents for congestion and scratchy throat for 3 weeks. Physical exam is unremarkable. Vitals are stable. Likely ALLERGIC given scratchy eyes with this, no fever, no swelling of the face. However patient reports she has tried everything which does not seem to be helping. She states she has a child at home who is susceptible to illness. She prefers to be treated with an antibiotic at this time. She will follow-up with her doctor otherwise. She will return here for any worsening symptoms. Disposition Clinical Impression: Congestion of nasal sinus Disposition: HOME SELF-CARE Condition: Good Instructions (If sedation given, give patient instructions): Sinusitis (ED) Additional Instructions: Please continue your Fouzia and Flonase. Take antibiotic as directed. Follow- up with primary care. Return to the emergency room for any worsening symptoms. Prescriptions: Azithromycin [Zithromax Z-pack (6 tabs)] 250 mg PO DIRECTED #6 tab Is patient prescribed a controlled substance at d/c from ED?: No Referrals: Nick Weaver DO [Primary Care Provider] - 1-2 days Time of Disposition: 20:52
== END 2020-09-01 21:06 | disposition home or self-care (01) ==
LOC: EC 20:27
DX: R09.81 Nasal congestion (principal); H57.89 Other specified disorders of eye and adnexa; R09.89 Other specified symptoms and signs involving the circulatory and respiratory systems; Z87.891 Personal history of nicotine dependence; Z88.2 Allergy status to sulfonamides; Z88.8 Allergy status to other drugs, medicaments and biological substances; Z88.0 Allergy status to penicillin; Z20.828 Contact with and (suspected) exposure to other viral communicable diseases
CPT/HCPCS: 99283; U0003

== ENCOUNTER → 2020-12-11 | Outpatient (CLI) | payer OTHER ==
--- NOTE | 2020-12-11 10:20 | US ---
EXAMINATION TYPE: US abdomen complete DATE OF EXAM: 12/11/2020 COMPARISON: CT CLINICAL HISTORY: R10.9 Pain GERD. Generalized ABD Pain; 4 months post EXAM MEASUREMENTS: Liver Length: 15.2 cm Gallbladder Wall: 0.2 cm CBD: 0.4 cm Spleen: 9.9 cm Right Kidney: 9.9 x 6.5 x 4.1 cm Left Kidney: 10.0 x 5.3 x 4.3 cm Pancreas: hyperechoic Liver: attenuated posteriorly suggests fatty liver Gallbladder: wnl Evidence for sonographic Franklin's sign: no CBD: wnl Spleen: wnl Right Kidney: No hydronephrosis or masses seen Left Kidney: No hydronephrosis or masses seen Upper IVC: wnl Abd Aorta: wnl IMPRESSION: 1. Mild fatty infiltration of the liver.
== END | disposition home or self-care (01) ==
LOC: RADUSWWP 08:09
PROVIDERS: ATTEND Pediatrics
DX: K76.0 Fatty (change of) liver, not elsewhere classified (principal)
CPT/HCPCS: 76700

== ENCOUNTER 2021-01-21 15:51 | Emergency (ER) | payer OTHER ==
[2021-01-21 16:00] VITALS: BP 100/62; PULSE 92; RESP 20; TEMP 98.1
[2021-01-21] MEDS ORDERED: ACET/COD 300 MG/30 MG STARTER PACK 6 TAB BTL PO STA (16:11)
--- NOTE | 2021-01-21 16:11 | ED ---
ENT HPI - General Chief complaint: Dental/Oral Stated complaint: possible dental infection Time Seen by Provider: 01/21/21 16:02 Source: patient, RN notes reviewed Mode of arrival: ambulatory Limitations: no limitations - History of Present Illness Initial comments: 25-year-old female presents emergency Department chief complaint dental pain. Patient states that she she had her right upper and lower wasn't tooth removed. Patient states this was performed that [facility]. Patient states that she started having discomfort and right lower concerned about possible dry socket or infection. She was not sent home with any medications. No fevers chills no other complaints. - Related Data Home Medications Medication Instructions Recorded Confirmed Omeprazole 20 mg PO DAILY 07/08/20 07/25/20 Previous Rx's Medication Instructions Recorded Albuterol Sulfate [Proair Hfa] 1 - 2 puff INHALATION Q4H PRN #1 10/04/19 inhaler Pnv No.95/Ferrous Fum/Folic AC 1 each PO DAILY #30 tablet 12/15/19 [ Multivitamin Tablet] Azithromycin [Zithromax Z-pack (6 250 mg PO DIRECTED #6 tab 09/01/20 tabs)] Clindamycin HCl 300 mg PO Q6HR #40 cap 01/21/21 Allergies Allergy/AdvReac Type Severity Reaction Status Date / Time amphetamine [From Adderall] Allergy Nausea Verified 01/21/21 16:00 ampicillin sodium Allergy Rash/Hives Verified 01/21/21 16:00 [From Unasyn] aripiprazole [From Abilify] Allergy Nausea & Verified 01/21/21 16:00 Vomiting dextroamphetamine Allergy Nausea Verified 01/21/21 16:00 [From Adderall] sulbactam sodium Allergy Rash/Hives Verified 01/21/21 16:00 [From Unasyn] ziprasidone HCl [From Geodon] Allergy Nausea Verified 01/21/21 16:00 ziprasidone mesylate Allergy Nausea Verified 01/21/21 16:00 [From Geodon] Review of Systems ROS Statement: Those systems with pertinent positive or pertinent negative responses have been documented in the HPI. ROS Other: All systems not noted in ROS Statement are negative. Past Medical History Past Medical History: No Reported History Additional Past Medical History / Comment(s): OTC deficicency, MIGRAINES, Ovarian Cysts History of Any Multi-Drug Resistant Organisms: None Reported Past Surgical History: No Surgical Hx Reported Past Psychological History: ADD/ADHD, Bipolar, Depression Smoking Status: Former smoker Past Alcohol Use History: None Reported Past Drug Use History: None Reported General Exam Limitations: no limitations General appearance: alert, in no apparent distress Head exam: Present: atraumatic, normocephalic, normal inspection Eye exam: Present: normal appearance, PERRL, EOMI. Absent: scleral icterus, c onjunctival injection, periorbital swelling ENT exam: Present: mucous membranes moist, TM's normal bilaterally. Absent: normal exam, normal oropharynx (Small pocket noted in the right lower mild erythema) Neck exam: Present: normal inspection, full ROM. Absent: tenderness, meningismus, lymphadenopathy Respiratory exam: Present: normal lung sounds bilaterally. Absent: respiratory distress, wheezes, rales, rhonchi, stridor Cardiovascular Exam: Present: regular rate, normal rhythm, normal heart sounds. Absent: systolic murmur, diastolic murmur, rubs, gallop, clicks Course Vital Signs 01/21/21 15:57 Temperature 98.1 F Pulse Rate 92 Respiratory 20 Rate Blood Pressure 100/62 O2 Sat by Pulse 98 Oximetry Medical Decision Making - Medical Decision Making May have underlying Dry socket. Patient starting antibiotics advised follow-up advised to apply clove oil return parameters were discussed. Disposition Clinical Impression: Pain, dental Disposition: HOME SELF-CARE Condition: Stable Instructions (If sedation given, give patient instructions): Dry Socket (ED) Additional Instructions: Please return to the Emergency Department if symptoms worsen or any other concerns. Prescriptions: Clindamycin HCl 300 mg PO Q6HR #40 cap Is patient prescribed a controlled substance at d/c from ED?: No Referrals: Derek Bower MD [Primary Care Provider] - 1-2 days Time of Disposition: 16:10
== END 2021-01-21 16:25 | disposition home or self-care (01) ==
LOC: EC 15:51
DX: K08.89 Other specified disorders of teeth and supporting structures (principal); F32.9 Major depressive disorder, single episode, unspecified; Z87.891 Personal history of nicotine dependence
CPT/HCPCS: 99283

== ENCOUNTER 2021-03-11 09:39 | Emergency (ER) | payer OTHER ==
[2021-03-11 09:43] VITALS: BP 105/68; PULSE 80; RESP 18; TEMP 97.6
--- NOTE | 2021-03-11 10:04 | ED ---
General Adult HPI - General Chief complaint: ENT Stated complaint: Ear Pain Time Seen by Provider: 03/11/21 09:44 Source: patient, RN notes reviewed Mode of arrival: ambulatory Limitations: no limitations - History of Present Illness Initial comments: 25-year-old female presents for bilateral ear pain. Patient reports this started a few days ago and she could not get into her doctor until Tuesday. Patient states it started when she got out of the shower. Patient denies fevers or chills. Denies a sore throat. Patient denies any congestion or upper respiratory symptoms.Patient has no other complaints at this time including shortness of breath, chest pain, abdominal pain, nausea or vomiting, headache, or visual changes. - Related Data Home Medications Medication Instructions Recorded Confirmed Omeprazole 20 mg PO DAILY 07/08/20 07/25/20 Previous Rx's Medication Instructions Recorded Albuterol Sulfate [Proair Hfa] 1 - 2 puff INHALATION Q4H PRN #1 10/04/19 inhaler Pnv No.95/Ferrous Fum/Folic AC 1 each PO DAILY #30 tablet 12/15/19 [ Multivitamin Tablet] Azithromycin [Zithromax Z-pack (6 250 mg PO DIRECTED #6 tab 09/01/20 tabs)] Clindamycin HCl 300 mg PO Q6HR #40 cap 01/21/21 Ofloxacin 0.3% Ophth Soln [Ocuflox 10 drops BOTH EARS DAILY 7 Days 03/11/21 Ophth Soln] #10 ml Allergies Allergy/AdvReac Type Severity Reaction Status Date / Time amphetamine [From Adderall] Allergy Nausea Verified 03/11/21 09:41 ampicillin sodium Allergy Rash/Hives Verified 03/11/21 09:41 [From Unasyn] aripiprazole [From Abilify] Allergy Nausea & Verified 03/11/21 09:41 Vomiting dextroamphetamine Allergy Nausea Verified 03/11/21 09:41 [From Adderall] sulbactam sodium Allergy Rash/Hives Verified 03/11/21 09:41 [From Unasyn] ziprasidone HCl [From Geodon] Allergy Nausea Verified 03/11/21 09:41 ziprasidone mesylate Allergy Nausea Verified 03/11/21 09:41 [From Geodon] Review of Systems ROS Statement: Those systems with pertinent positive or pertinent negative responses have been documented in the HPI. ROS Other: All systems not noted in ROS Statement are negative. Past Medical History Past Medical History: No Reported History Additional Past Medical History / Comment(s): OTC deficicency, MIGRAINES, Ovarian Cysts History of Any Multi-Drug Resistant Organisms: None Reported Past Surgical History: No Surgical Hx Reported Past Psychological History: ADD/ADHD, Bipolar, Depression Smoking Status: Former smoker Past Alcohol Use History: None Reported Past Drug Use History: None Reported General Exam Limitations: no limitations General appearance: alert, in no apparent distress Head exam: Present: atraumatic Eye exam: Present: normal appearance, PERRL, EOMI. Absent: scleral icterus, conjunctival injection, periorbital swelling ENT exam: Present: normal exam, mucous membranes moist, TM's normal bilaterally. Absent: normal external ear exam (Patient has pain with traction of the pinna and palpation of the tragus. I do not see any purulent material or edema of the external auditory canal.) Neck exam: Present: normal inspection, full ROM. Absent: tenderness, meningismus, lymphadenopathy Respiratory exam: Present: normal lung sounds bilaterally. Absent: respiratory distress, wheezes, rales, rhonchi, stridor Cardiovascular Exam: Present: regular rate, normal rhythm, normal heart sounds. Absent: systolic murmur, diastolic murmur, rubs, gallop, clicks Course Vital Signs 03/11/21 09:41 Temperature 97.6 F Pulse Rate 80 Respiratory 18 Rate Blood Pressure 105/68 O2 Sat by Pulse 99 Oximetry Medical Decision Making - Medical Decision Making Physical exam does reveal tenderness to the pinna and tragus. No pain to the mastoids with palpation. Tympanic membranes appear normal. This started after patient got water in her ear is from showering. We will start patient on antibiotic drops. She will follow-up with her doctor on Tuesday. She'll return for any worsening symptoms. Disposition Clinical Impression: Ear pain, Otitis externa Disposition: HOME SELF-CARE Condition: Good Instructions (If sedation given, give patient instructions): Earache (ED) Additional Instructions: Please use antibiotic drops as directed. Take Motrin and Tylenol for pain. Follow-up with your doctor on Tuesday. Return to the emergency room for any worsening symptoms. Prescriptions: Ofloxacin 0.3% Ophth Soln [Ocuflox Ophth Soln] 10 drops BOTH EARS DAILY 7 Days #10 ml Is patient prescribed a controlled substance at d/c from ED?: No Referrals: Derek Bower MD [Primary Care Provider] - 1-2 days Time of Disposition: 10:03
== END 2021-03-11 10:15 | disposition home or self-care (01) ==
LOC: EC 09:39
DX: H60.93 Unspecified otitis externa, bilateral (principal); Z79.51 Long term (current) use of inhaled steroids; Z79.899 Other long term (current) drug therapy; Z87.891 Personal history of nicotine dependence; Z88.1 Allergy status to other antibiotic agents; Z88.8 Allergy status to other drugs, medicaments and biological substances
CPT/HCPCS: 99282

== ENCOUNTER → 2021-11-12 | Outpatient (CLI) | payer OTHER ==
--- NOTE | 2021-11-12 12:17 | XR ---
EXAMINATION TYPE: XR lumbosacral spine min 4V DATE OF EXAM: 11/12/2021 COMPARISON: X-ray dated 09/19/2019 INDICATION: Chronic back pain TECHNIQUE: Standard 5 views of the lumbar spine FINDINGS: Preserved lumbar lordosis. Minimal retrolisthesis of L5 over S1. No definite vertebral body collapse or acute displaced fracture. Rather maintained intervertebral disc spaces. Questionable left L1-2 and right L4-5 facet osteoarthropathy. No other definite bony degenerative changes of the lumbar spine. Questionable 4 mm right renal calcul us versus artifact. Grossly unremarkable sacroiliac joints. IMPRESSION: Questionable left L1-2 and right L4-5 facet osteoarthropathy, otherwise no significant bony degenerat lonnie changes of the lumbar spine. No definite lumbar fracture. Incidental findings as described above. Further MRI assessment can be considered if clinically required.
--- NOTE | 2021-11-12 14:49 | XR ---
EXAMINATION TYPE: XR thoracic spine 2V DATE OF EXAM: 11/12/2021 COMPARISON: X-ray dated 10/04/2019 INDICATION: Chronic back pain TECHNIQUE: Standard views of the thoracic spine. FINDINGS: Preserved dorsal kyphosis. No significant anterolisthesis or retrolisthesis. No definite vertebral brittany dy collapse or acute displaced fracture. Questionable tiny multilevel opposing endplate osteophytosis . Otherwise no significant bony degenerative changes of the thoracic spine. Maintained intervertebral d isc spaces. T1 vertebra is suboptimally visualized in the lateral view. No gross paraspinal lesion. IMPRESSION: No definite thoracic vertebral fracture. Mild degenerative changes of the thoracic spine.
== END | disposition home or self-care (01) ==
LOC: RADXRMAIN 11:43
PROVIDERS: ATTEND Physician Assistant
DX: M47.814 Spondylosis without myelopathy or radiculopathy, thoracic region (principal)
CPT/HCPCS: 72070; 72110

== ENCOUNTER 2022-04-11 16:27 | Emergency (ER) | payer OTHER ==
[2022-04-11 16:37] VITALS: BP 110/84; PULSE 64; RESP 16; TEMP 98.5
--- NOTE | 2022-04-11 17:09 | ED ---
ENT HPI - General Chief complaint: ENT Stated complaint: Wants Covid test Time Seen by Provider: 04/11/22 16:28 Source: patient, RN notes reviewed Mode of arrival: ambulatory Limitations: no limitations - History of Present Illness Initial comments: 26-year-old female presented from for evaluation of possible COVID-19. Patient son recent this a positive for COVID-19 she is asymptomatic but takes close care of her son. Patient denies any fever cough congestion bodyaches. - Related Data Home Medications Medication Instructions Recorded Confirmed Omeprazole 20 mg PO DAILY 07/08/20 07/25/20 Previous Rx's Medication Instructions Recorded Albuterol Sulfate [Proair Hfa] 1 - 2 puff INHALATION Q4H PRN #1 10/04/19 inhaler Pnv No.95/Ferrous Fum/Folic AC 1 each PO DAILY #30 tablet 12/15/19 [ Multivitamin Tablet] Azithromycin [Zithromax Z-pack (6 250 mg PO DIRECTED #6 tab 09/01/20 tabs)] clindamycin HCL [Clindamycin HCl] 300 mg PO Q6HR #40 cap 01/21/21 Ofloxacin 0.3% Ophth Soln [Ocuflox 10 drops BOTH EARS DAILY 7 Days 03/11/21 Ophth Soln] #10 ml Allergies Allergy/AdvReac Type Severity Reaction Status Date / Time amphetamine [From Adderall] Allergy Nausea Verified 04/11/22 16:37 ampicillin sodium Allergy Rash/Hives Verified 04/11/22 16:37 [From Unasyn] aripiprazole [From Abilify] Allergy Nausea & Verified 04/11/22 16:37 Vomiting dextroamphetamine Allergy Nausea Verified 04/11/22 16:37 [From Adderall] sulbactam sodium Allergy Rash/Hives Verified 04/11/22 16:37 [From Unasyn] ziprasidone HCl [From Geodon] Allergy Nausea Verified 04/11/22 16:37 ziprasidone mesylate Allergy Nausea Verified 04/11/22 16:37 [From Geodon] Review of Systems ROS Statement: Those systems with pertinent positive or pertinent negative responses have been documented in the HPI. ROS Other: All systems not noted in ROS Statement are negative. Past Medical History Past Medical History: No Reported History Additional Past Medical History / Comment(s): OTC deficicency, MIGRAINES, Ovarian Cysts History of Any Multi-Drug Resistant Organisms: None Reported Past Surgical History: No Surgical Hx Reported Past Psychological History: ADD/ADHD, Bipolar, Depression Smoking Status: Former smoker Past Alcohol Use History: None Reported Past Drug Use History: None Reported General Exam Limitations: no limitations General appearance: alert, in no apparent distress Head exam: Present: atraumatic, normocephalic, normal inspection Respiratory exam: Present: normal lung sounds bilaterally. Absent: respiratory distress, wheezes, rales, rhonchi, stridor Cardiovascular Exam: Present: regular rate, normal rhythm, normal heart sounds. Absent: systolic murmur, diastolic murmur, rubs, gallop, clicks Course Vital Signs 04/11/22 16:33 Temperature 98.5 F Pulse Rate 64 Respiratory 16 Rate Blood Pressure 110/84 O2 Sat by Pulse 98 Oximetry Medical Decision Making - Medical Decision Making COVID-19 testing is negative. - Lab Data Lab Results 04/11/22 Range/Units 16:38 Coronavirus (PCR) Not Detected (Not Detectd) Disposition Clinical Impression: Encounter for laboratory testing for COVID-19 virus Disposition: HOME SELF-CARE Condition: Stable Additional Instructions: Please return to the Emergency Department if symptoms worsen or any other concerns. Is patient prescribed a controlled substance at d/c from ED?: No Referrals: Vivienne Roberts PAC [Primary Care Provider] - 1-2 days Time of Disposition: 17:09
== END 2022-04-11 17:26 | disposition home or self-care (01) ==
LOC: EC 16:27
DX: Z00.00 Encounter for general adult medical examination without abnormal findings (principal); F31.9 Bipolar disorder, unspecified; Z87.891 Personal history of nicotine dependence; Z88.8 Allergy status to other drugs, medicaments and biological substances; Z88.0 Allergy status to penicillin; Z79.899 Other long term (current) drug therapy
CPT/HCPCS: 87635; 99283

== ENCOUNTER → 2022-08-27 | Outpatient (CLI) | payer OTHER ==
--- NOTE | 2022-08-27 15:57 | US ---
EXAMINATION TYPE: US pelvis complete transvag DATE OF EXAM: 08/27/2022 COMPARISON: NONE CLINICAL HISTORY: Z97.5 Presence of IUD. IUD in place in July, mild cramping TECHNIQUE: TA/TV. Transabdominal sonographic images of the pelvis were acquired. Transvaginal sono graphic images were medically necessary to better assess the following anatomy: endometrium Date of LMP: unknown EXAM MEASUREMENTS: Uterus: 8.2 x 4.4 x 3.5 cm Endometrial Stripe: 0.6 cm Right Ovary: 1.6 x 1.6 x 1.4 cm Left Ovary: 3.3 x 2.7 x 2.5 cm 1. Uterus: Anteverted wnl 2. Endometrium: IUD seen within mid endometrium 3. Right Ovary: wnl 4. Left Ovary: 2.0 x 2.4 x 3.0cm 5. Bilateral Adnexa: wnl 6. Posterior cul-de-sac: wnl Heterogeneous anteverted uterus. Central shadowing metallic IUD. No free fluid in the pelvis. Slight asymmetric enlargement of left ovary due to 3.0 cm benign-appearing thin-walled cyst. No suspi cious extraovarian adnexal masses. IMPRESSION: Confirmation of central placement of IUD.
== END | disposition home or self-care (01) ==
LOC: RADUSWWP 14:46
PROVIDERS: ATTEND Obstetrics & Gynecology
DX: Z97.5 Presence of (intrauterine) contraceptive device (principal)
CPT/HCPCS: 76830; 76856

== ENCOUNTER → 2022-10-01 | Outpatient (CLI) | payer OTHER ==
[2022-10-01 15:19] LABS: Basophils # (A) 0.05 X 10*3/uL (0.00-0.10); Basophils % (A) 0.6 %; Eosinophils # (A) 0.14 X 10*3/uL (0.04-0.35); Eosinophils % (A) 1.8 %; HCT 40.9 % (37.2-46.3); HGB 12.5 g/dL (12.0-15.0); Immature Grans, Automated 0.6 %; Lymphocytes # (A) 2.15 X 10*3/uL (0.90-5.00); Lymphocytes % (A) 26.9 %; MCH 26.3 pg (27.0-32.0); MCHC 30.6 g/dL (32.0-37.0); MCV 86.1 fL (80.0-97.0); Mean Platelet Volume 12.1 fL (9.5-12.2); Monocytes # (A) 0.44 X 10*3/uL (0.20-1.00); Monocytes % (A) 5.5 %; NRBC Per 100 WBC 0 /100 WBCS (0.0-0.0); Neutrophils # (A) 5.17 X 10*3/uL (1.80-7.70); Neutrophils % (A) 64.6 %; Platelet Count 238 X 10*3/uL (140-440); RBC 4.75 X 10*6/uL (4.10-5.20); RDW 13.7 % (11.5-14.5)
[2022-10-01 16:07] LABS: ALT 19 U/L (8-44); AST 13 U/L (13-35); African American GFR (CKD) 122.1 (60.0-200.0); Albumin 4.1 g/dL (3.8-4.9); Albumin/Globulin Ratio 1.71 (1.60-3.17); Alkaline Phosphatase 68 U/L (41-126); BUN/Creat Ratio 23.27 Ratio (12.00-20.00); Blood Urea Nitrogen 18.2 mg/dL (9.0-27.0); Carbon Dioxide 24.5 mmol/L (20.0-27.5); Chloride 106 mmol/L (96-109); Chol/HDL Ratio 3.55 Ratio; Follicle Stimulating Hormone 6.8 mIU/mL; Globulin 2.4 g/dL (1.6-3.3); Glucose 98 mg/dL (70-110); Luteinizing Hormone 5.7 mIU/mL; Non-African American GFR(CKD) 105.3 (60.0-200.0); Potassium 4.3 mmol/L (3.5-5.5); Sodium 140 mmol/L (135-145); Total Protein 6.4 g/dL (6.2-8.2); VLDL Calculation 14.36 mg/dL (5.00-40.00)
[2022-10-01 16:42] LABS: Erythrocyte Sedimentation Rate 17 mm/Hr (0-20)
== END | disposition home or self-care (01) ==
LOC: LABWHC1 10:14
PROVIDERS: ATTEND Physician Assistant
DX: Z00.01 Encounter for general adult medical examination with abnormal findings (principal); Z13.220 Encounter for screening for lipoid disorders; F41.9 Anxiety disorder, unspecified; N91.2 Amenorrhea, unspecified
CPT/HCPCS: 36415; 80053; 80061; 83001; 83002; 84146; 84403; 84443; 85025; 85652

== ENCOUNTER 2022-10-04 09:39 | Emergency (ER) | payer OTHER ==
[2022-10-04] MEDS ORDERED: LIDOCAINE 1% INJ 10MG/ML (30 ML VIAL-PF) SQ ONE (10:19)
--- NOTE | 2022-10-04 10:23 | ED ---
General Adult HPI - General Chief complaint: Skin/Abscess/Foreign Body Stated complaint: cellulitis, abscess Time Seen by Provider: 10/04/22 10:08 Source: patient, RN notes reviewed Mode of arrival: ambulatory Limitations: no limitations - History of Present Illness Initial comments: 27-year-old female with no significant past medical history presents to the emergency department with a chief complaint of an abscess. She reports that she noticed a small pustule 5 days ago to her right axilla. She notes that had asked progressively gotten worse and reports associated fevers. She denies any self incision and drainage. She was seen at urgent care who recommended she come here for drainage of the abscess. She denies headache, congestion, chest pain, palpitations, abdominal pain, nausea, vomiting, dysuria, hematuria. She has been taking Tylenol and Motrin without relief. She has not been given any antibiotics for this. - Related Data Home Medications Medication Instructions Recorded Confirmed Omeprazole 20 mg PO DAILY 07/08/20 07/25/20 Previous Rx's Medication Instructions Recorded Albuterol Sulfate [Proair Hfa] 1 - 2 puff INHALATION Q4H PRN #1 10/04/19 inhaler Pnv No.95/Ferrous Fum/Folic AC 1 each PO DAILY #30 tablet 12/15/19 [ Multivitamin Tablet] Azithromycin [Zithromax Z-pack (6 250 mg PO DIRECTED #6 tab 09/01/20 tabs)] clindamycin HCL [Clindamycin HCl] 300 mg PO Q6HR #40 cap 01/21/21 Ofloxacin 0.3% Ophth Soln [Ocuflox 10 drops BOTH EARS DAILY 7 Days 03/11/21 Ophth Soln] #10 ml Clindamycin [Cleocin] 150 mg PO Q6H #120 capsule 10/04/22 Allergies Allergy/AdvReac Type Severity Reaction Status Date / Time amphetamine [From Adderall] Allergy Nausea Verified 10/04/22 09:42 ampicillin sodium Allergy Rash/Hives Verified 10/04/22 09:42 [From Unasyn] aripiprazole [From Abilify] Allergy Nausea & Verified 10/04/22 09:42 Vomiting dextroamphetamine Allergy Nausea Verified 10/04/22 09:42 [From Adderall] sulbactam sodium Allergy Rash/Hives Verified 10/04/22 09:42 [From Unasyn] ziprasidone HCl [From Geodon] Allergy Nausea Verified 10/04/22 09:42 ziprasidone mesylate Allergy Nausea Verified 10/04/22 09:42 [From Geodon] Review of Systems ROS Statement: Those systems with pertinent positive or pertinent negative responses have been documented in the HPI. ROS Other: All systems not noted in ROS Statement are negative. Past Medical History Past Medical History: No Reported History Additional Past Medical History / Comment(s): OTC deficicency, MIGRAINES, Ovarian Cysts History of Any Multi-Drug Resistant Organisms: None Reported Past Surgical History: No Surgical Hx Reported Past Psychological History: ADD/ADHD, Bipolar, Depression Smoking Status: Vaper Past Alcohol Use History: Occasional Past Drug Use History: Marijuana General Exam Limitations: no limitations General appearance: alert, in no apparent distress Head exam: Present: atraumatic, normocephalic, normal inspection Eye exam: Present: normal appearance, PERRL, EOMI. Absent: scleral icterus, conjunctival injection, periorbital swelling ENT exam: Present: normal exam, mucous membranes moist Neck exam: Present: normal inspection. Absent: tenderness, meningismus, lymphadenopathy Respiratory exam: Present: normal lung sounds bilaterally. Absent: respiratory distress, wheezes, rales, rhonchi, stridor Cardiovascular Exam: Present: regular rate, normal rhythm, normal heart sounds. Absent: systolic murmur, diastolic murmur, rubs, gallop, clicks GI/Abdominal exam: Present: soft, normal bowel sounds. Absent: distended, tenderness, guarding, rebound, rigid Extremities exam: Present: normal inspection, full ROM, normal capillary refill. Absent: tenderness, pedal edema, joint swelling, calf tenderness Right Upper Arm exam: Present: normal inspection, full ROM, tenderness, swelling, erythema, other (3cm lesion to right axilla with erythema, fluctuance. No active drainage, bleeding.). Absent: deformity, crepidus Back exam: Present: normal inspection Neurological exam: Present: alert, oriented X3, CN II-XII intact Psychiatric exam: Present: normal affect, normal mood Skin exam: Present: warm, dry, intact, normal color. Absent: rash Course Vital Signs 10/04/22 10/04/22 09:40 12:02 Temperature 98.3 F 98.7 F Pulse Rate 110 H 89 Respiratory 20 19 Rate Blood Pressure 128/72 105/49 O2 Sat by Pulse 99 100 Oximetry - Reevaluation(s) Reevaluation #1: 10/04/22 11:09 Incision and drainage procedure performed on patient patient tolerated well. Medical Decision Making - Medical Decision Making Was pt. sent in by a medical professional or institution (BRITTANY Santiago, [employer], urgent care, hospital, or custodial...) When possible be specific @ -[No] Did you speak to anyone other than the patient for history (EMS, parent, family, police, friend...)? What history was obtained from this source @ -[No] Did you review nursing and triage notes (agree or disagree)? Why? @ -[I reviewed and agree with nursing and triage notes] Were old charts reviewed (outside hosp., previous admission, EMS record, old EKG, old radiological studies, urgent care reports/EKG's, custodial records)? Report findings @ -[No old charts were reviewed] Differential Diagnosis (chest pain, altered mental status, abdominal pain women, abdominal pain men, vaginal bleeding, weakness, fever, dyspnea, syncope, headache, dizziness, GI bleed, back pain, seizure, CVA, palpatations, mental health)? @ -[not applicable] EKG interpreted by me (3pts min.). @ -[As above] X-rays interpreted by me (1pt min.). @ -[None done] CT interpreted by me (1pt min.). @ -[None done] U/S interpreted by me (1pt. min.). @ -[None done] What testing was considered but not performed or refused? (CT, X-rays, U/S, labs)? Why? @ -[None] What meds were considered but not given or refused? Why? @ -[None] Did you discuss the management of the patient with other professionals (professionals i.e. BRITTANY Santiago, [employer], lab, RT, psych nurse, v[employer] and crm, architecture instructor, teacher, parachute officer, social work case manager)? Give summary @ -[No] Was smoking cessation discussed for >3mins.? @ -[No] Was critical care preformed (if so, how long)? @ -[No] Were there social determinants of health that impacted care today? How? (Homelessness, low income, unemployed, alcoholism, drug addiction, transportation, low edu. Level, literacy, decrease access to med. care, [facility], rehab)? @ -[No] Was there de-escalation of care discussed even if they declined (Discuss DNR or withdrawal of care, Hospice)? DNR status @ -[No] What co-morbidities impacted this encounter? (DM, HTN, Smoking, COPD, CAD, Cancer, CVA, ARF, Chemo, Hep., AIDS, mental health diagnosis, sleep apnea, morb id obesity)? @ -[None] Was patient admitted / discharged? Hospital course, mention meds given and route, prescriptions, significant lab abnormalities, going to OR and other pertinent info. @ -27-year-old female presents to the emergency department with a chief complaint of an abscess. She history and physical performed. Exam rev eals a 3 cm, erythematous, tender lesion to the right axilla. Patient is a- febrile. Patient had an incision and drainage procedure performed in the emergency department. Only blood was drained from the lesion. Lab work was unremarkable. Patient was given a prescription for clindamycin. I recommend close follow-up with her primary care within 1-2 days. Patient was discharged in stable condition, and all return precautions were discussed. Patient verbalized understanding. I discussed the case with GRETA Mena who agrees with plan of care. Undiagnosed new problem with uncertain prognosis? @ -[No] Drug Therapy requiring intensive monitoring for toxicity (Heparin, Nitro, Insulin, Cardizem)? @ -[No] Were any procedures done? @ -[No] Diagnosis/symptom? @ -abscess to right axilla Acute, or Chronic, or Acute on Chronic? @ acute Uncomplicated (without systemic symptoms) or Complicated (systemic symptoms)? @ -uncomplicated Side effects of treatment? @ -[No] Exacerbation, Progression, or Severe Exacerbation? @ -[No] Poses a threat to life or bodily function? How? (Chest pain, [place], [place], pneumonia, PE, COPD, DKA, ARF, appy, cholecystitis, CVA, Diverticulitis, Homicidal, Suicidal, threat to staff... and all critical care pts) @ -[No] - Lab Data Result diagrams: 10/04/22 11:12 10/04/22 11:12 Lab Results 10/04/22 10/04/22 Range/Units 11:12 11:12 WBC 12.7 H (3.8-10.6) k/uL RBC 4.57 (3.80-5.40) m/uL Hgb 12.4 (11.4-16.0) gm/dL Hct 38.0 (34.0-46.0) % MCV 83.1 (80.0-100.0) fL MCH 27.1 (25.0-35.0) pg MCHC 32.7 (31.0-37.0) g/dL RDW 13.5 (11.5-15.5) % Plt Count 198 (150-450) k/uL MPV 9.0 Neutrophils % 77 % Lymphocytes % 16 % Monocytes % 3 % Eosinophils % 1 % Basophils % 0 % Neutrophils # 9.8 H (1.3-7.7) k/uL Lymphocytes # 2.1 (1.0-4.8) k/uL Monocytes # 0.4 (0-1.0) k/uL Eosinophils # 0.1 (0-0.7) k/uL Basophils # 0.0 (0-0.2) k/uL Sodium 136 L (137-145) mmol/L Potassium 4.0 (3.5-5.1) mmol/L Chloride 102 (98-107) mmol/L Carbon Dioxide 29 (22-30) mmol/L Anion Gap 5 mmol/L BUN 12 (7-17) mg/dL Creatinine 0.91 (0.52-1.04) mg/dL Est GFR (CKD-EPI)AfAm >90 (>60 ml/min/1.73 sqM) Est GFR (CKD-EPI)NonAf 88 (>60 ml/min/1.73 sqM) Glucose 96 (74-99) mg/dL Calcium 8.5 (8.4-10.2) mg/dL Disposition Clinical Impression: Abscess Disposition: HOME SELF-CARE Condition: Stable Instructions (If sedation given, give patient instructions): Abscess (ED) Prescriptions: Clindamycin [Cleocin] 150 mg PO Q6H #120 capsule Is patient prescribed a controlled substance at d/c from ED?: No Referrals: Derek Bower MD [Primary Care Provider] - 1-2 days
[2022-10-04] MEDS ORDERED: CLINDAMYCIN 150 MG CAP PO STA (11:15)
[2022-10-04 11:22] LABS: Basophils % (A) 0 %; Eosinophils # (A) 0.1 k/uL (0-0.7); Eosinophils % (A) 1 %; HGB 12.4 gm/dL (11.4-16.0); Lymphocytes # (A) 2.1 k/uL (1.0-4.8); Lymphocytes % (A) 16 %; MCH 27.1 pg (25.0-35.0); MCHC 32.7 g/dL (31.0-37.0); MCV 83.1 fL (80.0-100.0); Monocytes # (A) 0.4 k/uL (0-1.0); Monocytes % (A) 3 %; Neutrophils # (A) 9.8 k/uL (1.3-7.7); Neutrophils % (A) 77 %; Platelet Count 198 k/uL (150-450); RBC 4.57 m/uL (3.80-5.40); RDW 13.5 % (11.5-15.5); WBC 12.7 k/uL (3.8-10.6)
[2022-10-04 11:33] LABS: African American GFR (CKD) >90 (>60 ml/min/1.73 sqM); Anion Gap 5 mmol/L; Blood Urea Nitrogen 12 mg/dL (7-17); Calcium 8.5 mg/dL (8.4-10.2); Carbon Dioxide 29 mmol/L (22-30); Chloride 102 mmol/L (98-107); Glucose 96 mg/dL (74-99); Non-African American GFR(CKD) 88 (>60 ml/min/1.73 sqM); Sodium 136 mmol/L (137-145)
[2022-10-04 12:03] VITALS: BP 105/49; PULSE 89; RESP 19; TEMP 98.7
== END 2022-10-04 12:03 | disposition home or self-care (01) ==
LOC: EC 09:39
DX: L02.411 Cutaneous abscess of right axilla (principal); F12.90 Cannabis use, unspecified, uncomplicated; F17.290 Nicotine dependence, other tobacco product, uncomplicated; Z88.1 Allergy status to other antibiotic agents
CPT/HCPCS: 36415; 80048; 85025; 10060; 99283; J2001

== ENCOUNTER 2022-10-07 10:27 | Emergency (ER) | payer OTHER ==
[2022-10-07 10:39] VITALS: RESP 18; TEMP 98
[2022-10-07 12:08] LABS: Basophils % (A) 0 %; Eosinophils # (A) 0.1 k/uL (0-0.7); Eosinophils % (A) 2 %; HCT 37.1 % (34.0-46.0); HGB 12.3 gm/dL (11.4-16.0); Lymphocytes # (A) 1.6 k/uL (1.0-4.8); Lymphocytes % (A) 19 %; MCH 27.4 pg (25.0-35.0); MCHC 33.1 g/dL (31.0-37.0); MCV 82.9 fL (80.0-100.0); Mean Platelet Volume 9.2; Monocytes # (A) 0.3 k/uL (0-1.0); Monocytes % (A) 3 %; Neutrophils # (A) 6.1 k/uL (1.3-7.7); Neutrophils % (A) 74 %; Platelet Count 237 k/uL (150-450); RBC 4.48 m/uL (3.80-5.40); RDW 13.1 % (11.5-15.5); WBC 8.3 k/uL (3.8-10.6)
--- NOTE | 2022-10-07 12:10 | ED ---
Skin/Abscess/FB HPI - General Chief complaint: Skin/Abscess/Foreign Body Stated complaint: Revisit - Cellulitis Time Seen by Provider: 10/07/22 11:01 Source: patient, RN notes reviewed Mode of arrival: ambulatory Limitations: no limitations - History of Present Illness Initial comments: This is a 27-year-old female who presents to the emergency department for an abscess to the right axilla. She was evaluated here 3 days ago and had an I&D. At that time, only blood was drained. She was started on clindamycin, however she states that it has continued to worsen. She does continue to have drainage, which she states now appears to be pus. Also states that the redness and swelling appears to be spreading. Additionally, she states that the pain is worsening. She had fevers prior to her visit on the , however since being on the antibiotic she has not had any fevers. Denies any fevers, chills, sore throat, cough, dyspnea, chest pain, palpitations, abdominal pain, nausea, vomiting, diarrhea, back pain, or headaches. MD complaint: abscess/boil Location: RUE Treatments Prior to Arrival: antibiotic - Related Data Home Medications Medication Instructions Recorded Confirmed Omeprazole 20 mg PO DAILY 07/08/20 07/25/20 Previous Rx's Medication Instructions Recorded Albuterol Sulfate [Proair Hfa] 1 - 2 puff INHALATION Q4H PRN #1 10/04/19 inhaler Pnv No.95/Ferrous Fum/Folic AC 1 each PO DAILY #30 tablet 12/15/19 [ Multivitamin Tablet] Azithromycin [Zithromax Z-pack (6 250 mg PO DIRECTED #6 tab 09/01/20 tabs)] clindamycin HCL [Clindamycin HCl] 300 mg PO Q6HR #40 cap 01/21/21 Ofloxacin 0.3% Ophth Soln [Ocuflox 10 drops BOTH EARS DAILY 7 Days 03/11/21 Ophth Soln] #10 ml Clindamycin [Cleocin] 150 mg PO Q6H #120 capsule 10/04/22 Cephalexin [Keflex] 500 mg PO Q6HR 7 Days #28 cap 10/07/22 Sulfamethox-Tmp 800-160Mg [Bactrim 1 tab PO Q12HR 7 Days #14 tab 10/07/22 DS 800-160 mg] Allergies Allergy/AdvReac Type Severity Reaction Status Date / Time amphetamine [From Adderall] Allergy Nausea Verified 10/07/22 10:38 ampicillin sodium Allergy Rash/Hives Verified 10/07/22 10:38 [From Unasyn] aripiprazole [From Abilify] Allergy Nausea & Verified 10/07/22 10:38 Vomiting dextroamphetamine Allergy Nausea Verified 10/07/22 10:38 [From Adderall] sulbactam sodium Allergy Rash/Hives Verified 10/07/22 10:38 [From Unasyn] ziprasidone HCl [From Geodon] Allergy Nausea Verified 10/07/22 10:38 ziprasidone mesylate Allergy Nausea Verified 10/07/22 10:38 [From Geodon] Review of Systems ROS Statement: Those systems with pertinent positive or pertinent negative responses have been documented in the HPI. ROS Other: All systems not noted in ROS Statement are negative. Past Medical History Past Medical History: No Reported History Additional Past Medical History / Comment(s): OTC deficicency, MIGRAINES, Ovarian Cysts History of Any Multi-Drug Resistant Organisms: None Reported Past Surgical History: No Surgical Hx Reported Past Psychological History: ADD/ADHD, Bipolar, Depression Smoking Status: Vaper Past Alcohol Use History: Occasional Past Drug Use History: Marijuana General Exam Limitations: no limitations General appearance: alert, in no apparent distress Head exam: Present: atraumatic, normocephalic, normal inspection Respiratory exam: Present: normal lung sounds bilaterally. Absent: respiratory distress, wheezes, rales, rhonchi, stridor Cardiovascular Exam: Present: regular rate, normal rhythm, normal heart sounds. Absent: systolic murmur, diastolic murmur, rubs, gallop, clicks Neurological exam: Present: alert, oriented X3, CN II-XII intact Psychiatric exam: Present: normal affect, normal mood Skin exam: Present: other (Erythema and induration of the right axilla with overlying abscess and active purulent drainage. Tenderness to palpation. ) Course Vital Signs 10/07/22 10/07/22 10:35 14:03 Temperature 98 F Pulse Rate 108 H 98 Respiratory 18 18 Rate Blood Pressure 107/71 112/74 O2 Sat by Pulse 98 99 Oximetry Medical Decision Making - Medical Decision Making This is a 27-year-old female who presents to the emergency department for an abscess to the right axilla. Was pt. sent in by a medical professional or institution? @ -No Did you speak to anyone other than the patient for history? @ -No Did you review nursing and triage notes? @ -Yes, and I agree, it is accurate with regards to the patient's symptoms. Were old charts reviewed? @ -No Differential Diagnosis? @ -Differential axilla mass: Abscess, cellulitis, carbuncle, lymphadenitis, this is not meant to be an all- inclusive list. What testing was considered but not performed? (CT, X-rays, U/S, labs)? Why? @ -None What meds were considered but not given? Why? @ -None Did you discuss the management of the patient with other professionals? @ -No Did you reconcile home meds? @ -No Was smoking cessation discussed for >3mins.? @ -No Was critical care preformed (if so, how long)? @ -No Were there social determinants of health that impacted care today? How? (Homelessness, low income, unemployed, alcoholism, drug addiction, transportation, low edu. Level, literacy, decrease access to med. care, [facility], rehab)? @ -No Was there de-escalation of care discussed even if they declined? (Discuss DNR or withdrawal of care, Hospice)? @ -No What co-morbidities impacted this encounter? (DM, HTN, Smoking, COPD, CAD, Cancer, CVA, Hep., AIDS, mental health diagnosis, sleep apnea, morbid obesity)? @ -Morbid obesity Was patient admitted / discharged? @ -Discharged. Lab work obtained revealing a minor elevation and inflammatory markers and was otherwise nonactionable. Ultrasound of the abscess obtained revealing an area of either poorly defined fluid or a phlegmon. The abscess is actively draining purulent material on examination. She declines to have this opened up further for additional drainage. Aerobic and anaerobic cultures were obtained. Discussed continuing on clindamycin versus changing antibiotics. Patient requests to try an alternative medication. Prescription for Bactrim and Keflex provided with dosing instructions reviewed. First doses of each me dication were administered in the emergency department. She is instructed to continue to apply warm compresses and she was given information for general surgery follow-up in the event this is not completely treated with medications. Undiagnosed new problem with uncertain prognosis? @ -None Drug Therapy requiring intensive monitoring for toxicity (Heparin, Nitro, Insulin, Cardizem)? @ -None Were any procedures done? @ -None Diagnosis/symptom? @ -Right axilla abscess Acute, or Chronic, or Acute on Chronic? @ -Acute Uncomplicated (without systemic symptoms) or Complicated (systemic symptoms)? @ -Uncomplicated Side effects of treatment? @ -None Exacerbation, Progression, or Severe Exacerbation] @ -Not applicable Poses a threat to life or bodily function? @ -No Return precautions reviewed in depth, the patient is instructed to return to the emergency department with any new, worsening, or concerning symptoms. Patient verbalized understanding. This case was discussed in detail with the attending ED physician, Dr. Plascencia. Presentation, findings, and treatment plan discussed in detail as well. - Lab Data Result diagrams: 10/07/22 11:28 10/07/22 11:28 Lab Results 10/07/22 10/07/22 10/07/22 Range/Units 11:28 11:28 11:28 WBC 8.3 (3.8-10.6) k/uL RBC 4.48 (3.80-5.40) m/uL Hgb 12.3 (11.4-16.0) gm/dL Hct 37.1 (34.0-46.0) % MCV 82.9 (80.0-100.0) fL MCH 27.4 (25.0-35.0) pg MCHC 33.1 (31.0-37.0) g/dL RDW 13.1 (11.5-15.5) % Plt Count 237 (150-450) k/uL MPV 9.2 Neutrophils % 74 % Lymphocytes % 19 % Monocytes % 3 % Eosinophils % 2 % Basophils % 0 % Neutrophils # 6.1 (1.3-7.7) k/uL Lymphocytes # 1.6 (1.0-4.8) k/uL Monocytes # 0.3 (0-1.0) k/uL Eosinophils # 0.1 (0-0.7) k/uL Basophils # 0.0 (0-0.2) k/uL ESR 22 H (0-20) mm/hr Sodium 139 (137-145) mmol/L Potassium 4.3 (3.5-5.1) mmol/L Chloride 106 (98-107) mmol/L Carbon Dioxide 26 (22-30) mmol/L Anion Gap 7 mmol/L BUN 15 (7-17) mg/dL Creatinine 0.77 (0.52-1.04) mg/dL Est GFR (CKD-EPI)AfAm >90 (>60 ml/min/1.73 sqM) Est GFR (CKD-EPI)NonAf >90 (>60 ml/min/1.73 sqM) Glucose 113 H (74-99) mg/dL Plasma Lactic Acid Ruben 0.8 (0.7-2.0) mmol/L Calcium 8.6 (8.4-10.2) mg/dL Total Bilirubin 0.7 (0.2-1.3) mg/dL AST 16 (14-36) U/L ALT 18 (4-34) U/L Alkaline Phosphatase 62 (38-126) U/L C-Reactive Protein 3.7 H (<1.0) mg/dL Total Protein 6.5 (6.3-8.2) g/dL Albumin 3.8 (3.5-5.0) g/dL - Radiology Data Radiology results: report reviewed, image reviewed Disposition Clinical Impression: Abscess of axilla, right, Phlegmonous cellulitis Disposition: HOME SELF-CARE Instructions (If sedation given, give patient instructions): Abscess Incision and Drainage (ED), Abscess (ED) Additional Instructions: Return to the emergency department with any new, worsening, or concerning symptoms. Stop taking the clindamycin and begin taking Bactrim and Keflex as prescribed. Continue to apply warm compresses. Alternate with ibuprofen and Tylenol for pain relief and the ibuprofen will help with additional swelling and inflammation. Contact general surgery for a follow-up appointment. Follow up with your primary care provider in 1-2 days. Prescriptions: Sulfamethox-Tmp 800-160Mg [Bactrim DS 800-160 mg] 1 tab PO Q12HR 7 Days #14 tab Cephalexin [Keflex] 500 mg PO Q6HR 7 Days #28 cap Is patient prescribed a controlled substance at d/c from ED?: No Referrals: Derek Bower MD [Primary Care Provider] - 1-2 days Gina Hong MD [STAFF PHYSICIAN] - 1-2 days
[2022-10-07 12:28] LABS: ALT 18 U/L (4-34); AST 16 U/L (14-36); African American GFR (CKD) >90 (>60 ml/min/1.73 sqM); Albumin 3.8 g/dL (3.5-5.0); Alkaline Phosphatase 62 U/L (38-126); Anion Gap 7 mmol/L; Blood Urea Nitrogen 15 mg/dL (7-17); C Reactive Protein 3.7 mg/dL (<1.0); Calcium 8.6 mg/dL (8.4-10.2); Carbon Dioxide 26 mmol/L (22-30); Chloride 106 mmol/L (98-107); Glucose 113 mg/dL (74-99); Non-African American GFR(CKD) >90 (>60 ml/min/1.73 sqM); Potassium 4.3 mmol/L (3.5-5.1); Sodium 139 mmol/L (137-145); Total Bilirubin 0.7 mg/dL (0.2-1.3); Total Protein 6.5 g/dL (6.3-8.2)
[2022-10-07] MEDS ORDERED: KETOROLAC 15 MG/ML 1 ML VIAL IVP STA (12:43)
[2022-10-07] MEDS ORDERED: MORPHINE SULFATE 2 MG/ML SYRINGE IVP STA (12:43)
--- NOTE | 2022-10-07 13:19 | US ---
EXAMINATION TYPE: US axilla RT DATE OF EXAM: 10/07/2022 COMPARISON: NONE CLINICAL HISTORY: 27-year-old female Abscess. Right axillary abscess lanced 3 days ago. Patient is o n antibiotics. Pressure in axilla is increasing. Technique: Targeted ultrasound of the right axilla at the site of patient's pain. FINDINGS: In area of concern, Right axilla: Heterogeneous, edematous tissue visualized. Slightly more hypoechoic area with track to the skin chao suring approximately 2.2 x 1.9 x 3.1cm. IMPRESSION: Severely edematous tissues in the right axilla with poorly defined fluid/phlegmon measuring approxima tely 3.1 x 2.2 x 1.9 cm. No well formed abscess is present at this time.
[2022-10-07] MEDS ORDERED: SULFAMETHOX-TMP 800-160MG 1 EACH TAB PO STA (13:34)
[2022-10-07] MEDS ORDERED: CEPHALEXIN 500 MG CAP PO STA (13:34)
[2022-10-07] MEDS ORDERED: ACET/COD 300 MG/30 MG STARTER PACK 6 TAB BTL PO STA (13:40)
[2022-10-07 14:05] VITALS: BP 112/74; PULSE 98
[2022-10-07 14:25] LABS: Erythrocyte Sedimentation Rate 22 mm/hr (0-20)
== END 2022-10-07 14:16 | disposition home or self-care (01) ==
LOC: EC 10:27
DX: L02.411 Cutaneous abscess of right axilla (principal); L03.90 Cellulitis, unspecified; F90.9 Attention-deficit hyperactivity disorder, unspecified type; F31.9 Bipolar disorder, unspecified; F17.290 Nicotine dependence, other tobacco product, uncomplicated; F12.90 Cannabis use, unspecified, uncomplicated; Z88.8 Allergy status to other drugs, medicaments and biological substances; Z88.2 Allergy status to sulfonamides; Z88.6 Allergy status to analgesic agent
CPT/HCPCS: 36415; 80053; 85652; 83605; 85025; 86140; 87070; 87205; 87075; 76882; 99284; 96374; J1885

== ENCOUNTER 2023-05-15 22:37 | Emergency (ER) | payer OTHER ==
[2023-05-15] MEDS ORDERED: SODIUM CHLORIDE 0.9% 500 ML 500 ML IV STA (22:44)
[2023-05-15] MEDS ORDERED: KETOROLAC 15 MG/ML 1 ML VIAL IVP STA (22:44)
[2023-05-15] MEDS ORDERED: MORPHINE SULFATE 4 MG/ML SYRINGE IVP STA (22:44)
--- NOTE | 2023-05-15 22:44 | ED ---
Extremity Problem HPI - General Stated complaint: Ankle Pain Time Seen by Provider: 05/15/23 22:43 Source: RN notes reviewed, old records reviewed Limitations: no limitations - History of Present Illness Initial comments: This is a 27-year-old female to the emergency department for evaluation. Patient presents today for evaluation of right ankle pain. Severe right ankle pain crying after trip and fall. Patient is unable to bear weight although she does attempt to toe tap and use right leg from balance after fall. She is unable patient resents by EMS for severe pain and swelling to the right ankle. Patient denies drugs or alcohol today. She has history of loose joints with prior fractures. Patient denies any other injury with fall MD Complaint: extremity pain, extremity swelling, cold extremity, joint pain (Right ankle) -: days(s) Location: right, lower extremity, other (Ankle) -: Yes arthralgia Radiation: proximal, distal Severity scale (1-10): 9 Quality: stabbing Consistency: constant Improves with: nothing Worsens with: palpation Associated Symptoms: denies other symptoms - Related Data Home Medications Medication Instructions Recorded Confirmed Omeprazole 20 mg PO DAILY 07/08/20 07/25/20 Previous Rx's Medication Instructions Recorded Albuterol Sulfate [Proair Hfa] 1 - 2 puff INHALATION Q4H PRN #1 10/04/19 inhaler Pnv No.95/Ferrous Fum/Folic AC 1 each PO DAILY #30 tablet 12/15/19 [ Multivitamin Tablet] Azithromycin [Zithromax Z-pack (6 250 mg PO DIRECTED #6 tab 09/01/20 tabs)] clindamycin HCL [Clindamycin HCl] 300 mg PO Q6HR #40 cap 01/21/21 Ofloxacin 0.3% Ophth Soln [Ocuflox 10 drops BOTH EARS DAILY 7 Days 03/11/21 Ophth Soln] #10 ml Clindamycin [Cleocin] 150 mg PO Q6H #120 capsule 10/04/22 Cephalexin [Keflex] 500 mg PO Q6HR 7 Days #28 cap 10/07/22 Sulfamethox-Tmp 800-160Mg [Bactrim 1 tab PO Q12HR 7 Days #14 tab 10/07/22 DS 800-160 mg] Allergies Allergy/AdvReac Type Severity Reaction Status Date / Time amphetamine [From Adderall] Allergy Nausea Verified 05/15/23 22:51 ampicillin sodium Allergy Rash/Hives Verified 05/15/23 22:51 [From Unasyn] aripiprazole [From Abilify] Allergy Nausea & Verified 05/15/23 22:51 Vomiting dextroamphetamine Allergy Nausea Verified 05/15/23 22:51 [From Adderall] sulbactam sodium Allergy Rash/Hives Verified 05/15/23 22:51 [From Unasyn] ziprasidone HCl [From Geodon] Allergy Nausea Verified 05/15/23 22:51 ziprasidone mesylate Allergy Nausea Verified 05/15/23 22:51 [From Geodon] Review of Systems ROS Statement: Those systems with pertinent positive or pertinent negative responses have been documented in the HPI. ROS Other: All systems not noted in ROS Statement are negative. Past Medical History Past Medical History: No Reported History Additional Past Medical History / Comment(s): OTC deficicency, MIGRAINES, Ovarian Cysts History of Any Multi-Drug Resistant Organisms: None Reported Past Surgical History: No Surgical Hx Reported Past Psychological History: ADD/ADHD, Bipolar, Depression Smoking Status: Vaper Past Alcohol Use History: Occasional Past Drug Use History: Marijuana General Exam General appearance: alert, in no apparent distress Head exam: Present: atraumatic, normocephalic, normal inspection Eye exam: Present: normal appearance, PERRL, EOMI. Absent: scleral icterus, conjunctival injection, periorbital swelling ENT exam: Present: normal exam, mucous membranes moist Neck exam: Present: normal inspection. Absent: tenderness, meningismus, lymphadenopathy Respiratory exam: Present: normal lung sounds bilaterally. Absent: respiratory distress, wheezes, rales, rhonchi, stridor Cardiovascular Exam: Present: regular rate, normal rhythm, normal heart sounds. Absent: systolic murmur, diastolic murmur, rubs, gallop, clicks GI/Abdominal exam: Present: soft, normal bowel sounds. Absent: distended, tenderness, guarding, rebound, rigid Extremities exam: Present: normal inspection, tenderness, normal capillary refill, other (Significant pain and deformity right ankle). Absent: full ROM, pedal edema, joint swelling, calf tenderness Back exam: Present: normal inspection Neurological exam: Present: alert, oriented X3, CN II-XII intact Psychiatric exam: Present: normal affect, normal mood Skin exam: Present: warm, dry, intact, normal color. Absent: rash Course Vital Signs 05/15/23 05/16/23 22:43 00:40 Pulse Rate 92 Respiratory 18 Rate Blood Pressure 114/64 107/65 O2 Sat by Pulse 98 Oximetry - Reevaluation(s) Reevaluation #1: 05/16/23 00:00 Medical records reviewed Reevaluation #2: 05/16/23 00:00 Patient's pain is improved Reevaluation #3: 05/16/23 00:00 Patient informed results questions answered Reevaluation #4: 05/16/23 00:00 Was pt. sent in by a medical professional or institution (, [facility], [facility], urgent care, hospital, or residential...) When possible be specific @ -no Did you speak to anyone other than the patient for history (EMS, parent, family, police, friend...)? What history was obtained from this source @ -no Did you review nursing and triage notes (agree or disagree)? Why? @ -agree Are old charts reviewed (outside hosp., previous admission, EMS record, old EKG, old radiological studies, urgent care reports/EKG's, residential records)? Report findings @ -yes Differential Diagnosis (chest pain, altered mental status, abdominal pain women, abdominal pain men, vaginal bleeding, weakness, fever, dyspnea, syncope, headache, dizziness, GI bleed, back pain, seizure, CVA, palpatations, mental health, musculoskeletal)? @ -prior EKG interpreted by me (3pts min.). @ -no X-rays interpreted by me (1pt min.). @ -yes CT interpreted by me (1pt min.). @ -no U/S interpreted by me (1pt. min.). @ -no What testing was considered but not performed or refused? (CT, X-rays, U/S, lab s)? Why? @ -none What meds were considered but not given or refused? Why? @ -none Did you discuss the management of the patient with other professionals (professionals i.e. [facility] Santiago, [facility], lab, RT, psych nurse, social service liaison, assembly stock supervisor, teacher, police liaison officer, window caser)? Give summary @ -no Was smoking cessation discussed for >3mins.? @ -no Was critical care preformed (if so, how long)? @ -no Were there social determinants of health that impacted care today? How? (Homelessness, low income, unemployed, alcoholism, drug addiction, transportation, low edu. Level, literacy, decrease access to med. care, skilled nursing, rehab)? @ -none Was there de-escalation of care discussed even if they declined (Discuss DNR or withdrawal of care, Hospice)? DNR status @ -no What co-morbidities impacted this encounter? (DM, HTN, Smoking, COPD, CAD, Cancer, CVA, ARF, Chemo, Hep., AIDS, mental health diagnosis, sleep apnea, morbid obesity)? @ -none Was patient admitted / discharged? Hospital course, mention meds given and route, prescriptions, significant lab abnormalities, going to OR and other pertinent info. @ - 27 female to the emergency room today for evaluation trimalleolar fracture right ankle. Ankle is reducible placed in splint here in the emergency department, pain is controlled and patient will be discharged home Discharge Undiagnosed new problem with uncertain prognosis? @ -no Drug Therapy requiring intensive monitoring for toxicity (Heparin, Nitro, Insulin, Cardizem)? @ -no Were any procedures done? @ -Yes ankle reduction and splint Diagnosis/symptom? @ -Fall with trimalleolar fracture right ankle Acute, or Chronic, or Acute on Chronic? @ -Acute Uncomplicated (without systemic symptoms) or Complicated (systemic symptoms)? @ -Complicated Side effects of treatment? @ -no Exacerbation, Progression, or Severe Exacerbation? @ -exacerbation Poses a threat to life or bodily function? How? (Chest pain, [place], [place], pneumonia, PE, COPD, DKA, ARF, appy, cholecystitis, CVA, Diverticulitis, Homicidal, Suicidal, threat to staff... and all critical care pts) @ -yes significant trauma with fracture and traumatic injury Procedures - Orthopedic Fracture Reduction Fracture #1 Consent Obtained: verbal consent Side: right Fracture Reduction Location: tibia, fibula Technique: direct manipulation Post Reduction X-rays Demonstrate: acceptable reduction Post-Reduction Neuro Exam: intact Post-Reduction Vascular Exam: intact Splint Applied: Yes Patient Tolerated Procedure: well Medical Decision Making - Medical Decision Making 27 female to the emergency room today for evaluation trimalleolar fracture right ankle. Ankle is reducible placed in splint here in the emergency department, pain is controlled and patient will be discharged home - Radiology Data Radiology results: report reviewed (X-ray right ankle is positive for right ankle fracture), image reviewed Disposition Clinical Impression: Fall, Closed right ankle fracture, Trimalleolar fracture of right ankle Disposition: HOME SELF-CARE Condition: Good Instructions (If sedation given, give patient instructions): Ankle Fracture (ED) Is patient prescribed a controlled substance at d/c from ED?: No Referrals: Ban Zhang DO [Doctor of Osteopathic Medicine] - 1-2 days Time of Disposition: 00:00
[2023-05-16] MEDS ORDERED: IBUPROFEN 600 MG STARTER PACK 4 TAB BTL PO STA (00:02)
[2023-05-16] MEDS ORDERED: ACET/COD 300 MG/30 MG STARTER PACK 6 TAB BTL PO STA (00:02)
--- NOTE | 2023-05-16 00:14 | XR ---
EXAM: XR Right Ankle Complete, 3 or More Views CLINICAL HISTORY: ITS.REASON XR Reason: fall TECHNIQUE: Frontal, lateral and oblique views of the right ankle. COMPARISON: No relevant prior studies available. FINDINGS: Bones/joints: Displaced bimalleolar fracture, with asymmetry of the ankle mortise. Orthopedic surgical evaluation recommended. No dislocation. Soft tissues: Unremarkable. IMPRESSION: Displaced bimalleolar fracture, with asymmetry of the ankle mortise. Orthopedic surgical evaluation recommended.
[2023-05-16 01:26] VITALS: BP 107/65; PULSE 92; RESP 18
--- NOTE | 2023-05-16 01:30 | XR ---
EXAM: XR Right Ankle Complete, 3 or More Views CLINICAL HISTORY: ITS.REASON XR Reason: recheck TECHNIQUE: Frontal, lateral and oblique views of the right ankle. COMPARISON: Earlier same day radiographs. FINDINGS: Bones/joints: Improved alignment of the bimalleolar fracture. The ankle mortise is relatively symmetric. Soft tissues: Unremarkable. IMPRESSION: Improved alignment of the bimalleolar fracture. The ankle mortise is relatively symmetric.
== END 2023-05-16 00:45 | disposition home or self-care (01) ==
LOC: EC 22:37
DX: S82.851A Displaced trimalleolar fracture of right lower leg, initial encounter for closed fracture (principal); S82.841D Displaced bimalleolar fracture of right lower leg, subsequent encounter for closed fracture with routine healing; F17.290 Nicotine dependence, other tobacco product, uncomplicated; F12.90 Cannabis use, unspecified, uncomplicated; Z86.59 Personal history of other mental and behavioral disorders; Z88.0 Allergy status to penicillin; Z88.2 Allergy status to sulfonamides; Z88.6 Allergy status to analgesic agent; Z88.8 Allergy status to other drugs, medicaments and biological substances; W01.0XXD Fall on same level from slipping, tripping and stumbling without subsequent striking against object, subsequent encounter
CPT/HCPCS: 99285; 96374; 96375; 27752; 73600; 73610; 96361; J2270; J1885

== ENCOUNTER 2023-05-27 08:38 | Day surgery (SDC) | payer OTHER ==
[2023-05-27] MEDS ORDERED: LIDOCAINE 1% (10MG/ML) FOR IV START INTRADERMA PRN (09:09)
[2023-05-27] MEDS ORDERED: DEXAMETHASONE SOD PHOSPHATE 4 MG/ML 1 ML VIAL IV ONE (09:09)
[2023-05-27] MEDS ORDERED: HYDROmorphone 0.5 MG/0.5 ML SYRINGE IVP PRN (09:09)
[2023-05-27] MEDS ORDERED: LACTATED RINGERS 1,000 ML IV SCH (09:09)
[2023-05-27] MEDS ORDERED: ONDANSETRON 4 MG/2 ML VIAL IVP ONE (09:09)
[2023-05-27] MEDS ORDERED: MIDAZOLAM 2 MG/2 ML VIAL IV PRN (09:09)
[2023-05-27] MEDS ORDERED: fentaNYL (PF) 50 MCG/1 ML VIAL IVP ONE (10:03)
[2023-05-27] MEDS ORDERED: SODIUM CHLORIDE 0.9% (PF) 10 ML VIAL ONE (10:15)
[2023-05-27] MEDS ORDERED: LIDOCAINE 2% INJ 20 MG/ML (2 ML VIAL) ONE (10:15)
[2023-05-27] MEDS ORDERED: ROPIVACAINE 5 MG/ML 30 ML VIAL ONE (10:15)
[2023-05-27] MEDS ORDERED: SUCCINYLCHOLINE CHLORIDE 200 MG/10 ML VIAL IV ONE (10:15)
[2023-05-27] MEDS ORDERED: diphenhydrAMINE 50 MG/ML 1 ML VIAL ONE (10:15)
[2023-05-27] MEDS ORDERED: fentaNYL (PF) 50 MCG/ML 2 ML AMP ONE (10:15)
[2023-05-27] MEDS ORDERED: PROPOFOL 10 MG/ML 20 ML VIAL IV ONE (10:15)
[2023-05-27] MEDS ORDERED: ceFAZolin 1,000 MG in SODIUM CHLORIDE 0.9% 1,000 ML IRRIGATION ONE (10:20)
--- NOTE | 2023-05-27 10:22 | P.ANPRN ---
Procedure Note - Anesthesia - Nerve Block Performed Right Adductor Canal Time Out Performed: Yes (:03) Date of Procedure: 05/27/23 Procedure Start Time: Procedure Stop Time: Location of Patient: PreOp Indication: Acute Post-Operative Pain, Requested by Surgeon (Dr Baldwin) Sedation Type: Sedate with meaningful contact maintained Preparation: Sterile Prep Position: Supine Catheter: None Needle Types: Pajunk Needle Gauge: 21 Ultrasound used to visualize needle placement: Yes Ultrasound used to observe medication spread: Yes Injectate: 0.5% Ropivacaine (see comment for volume) (20cc) Blood Aspirated: No Pain Paresthesia on Injection Noted: No Resistance on Injection: Normal Image Stored and Saved: Yes Events: Uneventful and Well Tolerated
--- NOTE | 2023-05-27 10:23 | P.ANPRN ---
Procedure Note - Anesthesia - Nerve Block Performed Right Popliteal Time Out Performed: Yes Date of Procedure: 05/27/23 Procedure Start Time: 10:08 Procedure Stop Time: 10:12 Location of Patient: PreOp Indication: Acute Post-Operative Pain, Requested by Surgeon (Dr Baldwin) Sedation Type: Sedate with meaningful contact maintained Preparation: Sterile Prep Position: Left Lateral Catheter: None Needle Types: Pajunk Needle Gauge: 21 Ultrasound used to visualize needle placement: Yes Ultrasound used to observe medication spread: Yes Injectate: 0.5% Ropivacaine (see comment for volume) (15cc + 5cc PF normal saline) Blood Aspirated: No Pain Paresthesia on Injection Noted: No Resistance on Injection: Normal Image Stored and Saved: Yes Events: Uneventful and Well Tolerated
--- NOTE | 2023-05-27 11:52 | XR ---
EXAMINATION TYPE: XR ankle complete RT, FL guidance operating room DATE OF EXAM: 05/27/2023 COMPARISON: 05/16/2023 HISTORY: 27 year-old female right ankle ORIF FINDINGS: Intraoperative fluoroscopy during placement of lateral plate and screw fixation of the fibula and cor tical screw fixation medial malleolus. FLUOROSCOPY Fluoroscopy time of 21 seconds was used during right ankle ORIF. 3 image/s document/s the procedure. DAP 0 .[id number] mGycm2. IMPRESSION: Intraoperative fluoroscopy as above.
--- NOTE | 2023-05-27 11:56 | P.OP ---
Date of Procedure: 05/27/23 Preoperative Diagnosis: Displaced bimalleolar fracture right ankle Postoperative Diagnosis: Same Procedure(s) Performed: open reduction with internal fixation right bimalleolar ankle fracture Implants: Arthrex 4 hole precontoured lateral malleolar plate with 3.5 mm and 3.0 mm locking screws 3.5 mm cortical screw 4.0 mm partially threaded cannulated screw Anesthesia: ROSALEE Surgeon: Jeff Baldwin Estimated Blood Loss (ml): 10 Pathology: none sent Condition: stable Disposition: PACU Description of Procedure: Prior to the patient being brought to the operative room, anesthesia administered a nerve block on the right lower extremity. The patient was b rought into the operative room and placed on table supine position. Timeout was taken to confirm correct patient identifiers, correct laterally surgery, and correct procedure. Once all staff in the room were in agreement with the timeout, the patient was induced and placed under general anesthesia. A well- padded tourniquet was placed on the right thigh and a bump underneath the right hip to internally rotate the right leg. The right leg was then prepped and draped usual manner. The right leg was exsanguinated and the tourniquet inflated to 250 mmHg. Attention was directed over the lateral aspect of the ankle, where a linear incision was made directly over the fibula. The incision was deepened down to the subcutaneous tissue careful to identify, avoid, and retract any neurovascular structures and cauterize any bleeding vessels. Blunt dissection was continued down to level of the fracture, and soft tissue was reflected away from the lateral malleolus to expose the fracture site. The fracture was distracted and any interposing tissue or hematoma were removed. Then the area thoroughly irrigated with antibiotic saline. Bone reduction forceps were used to rotate and bring the fracture back into alignment. And then the forceps were used to maintain the alignment. Fluoroscopic imaging confirmed the anatomic alignment of the fracture. The drill hole for the interfragmentary screw was made from superior anterior to proximal inferior, perpendicular to the fracture line. A 3.5 mm cortical screw was then inserted and tightened until the fracture line compressed. Fluoroscopic imaging confirmed maintained anatomic alignment of the fracture and proper placement of hardware. An Arthrex 4 hole precontoured lateral malleolar plate was then positioned across the fracture. Positioning was adjusted under fluoroscopy until except to. Temporary fixation was used to hold the plate in place. 23.5 mm locking screws were placed in the proximal holes. 3.0 mm locking screws were placed in the distal holes. The distal holes were drilled under direct fluoroscopic visualization so that the lateral gutter of the ankle was not entered. Was also used to confirm that no screws entered the lateral gutter. Final fluoroscopic imaging showed anatomic alignment of the fracture with proper placement of hardware. Then attention was directed over the medial malleolus, where a linear incision was made over the fracture. He was deepened to the subcutaneous tissue careful to identify, avoid, and retract any neurovascular structures and cauterize any bleeding vessels. Blunt dissection was continued down to the fracture. There was soft tissue and hematoma between the fracture fragments. The tissue and hematoma were removed until there were fresh ends of bleeding bone. A large reduction forceps was used to reduce the fracture fragment. Fluoroscopy confirmed reduction of the fracture. A guidewire for a 4.0 cannulated screw inserted at the tip of the medial malleolus and ankle into the tibia, avoiding the ankle joint. Fluoroscopic imaging confirmed the proper placement of the wire both on AP and lateral views. Drilling was completed just past the fracture line and then a 4.0 mm cannulated screw was inserted across the guidewire and then it was tightened until the head engaged medial malleolus and compressed the fracture. Final fluoroscopic imaging showed anatomic alignment all fractures. Ankle joint was opened symmetrical. Under live fluoroscopy stress testing was done for the syndesmosis, which showed no instability. All wounds were thoroughly irrigated with antibiotic saline. Deep closure on the lateral wound was done with 2-0 Vicryl. Subcutaneous closure was done with 3-0 Monocryl. And skin closure done with renetta. On the medial incision the subcutaneous tissue was closed with 2- 0 Vicryl. Skin closure done with renetta. An Arthrex jumpstart dressings were placed over both incisions and then a bulky dry dressings applied to the right ankle. The tourniquet was released and capillary refill return to all digits on the right foot. The patient was then placed in a well-padded, well molded plaster posterior mold/sugar tong splint. Ankle was held in neutral position until the splint was adequately dried. Then anesthesia was reversed and the patient was taken to recovery with vital signs stable.
[2023-05-27 15:26] VITALS: BP 128/77; PULSE 82
[2023-05-27 15:29] VITALS: RESP 17; TEMP 98.1
== END 2023-05-27 13:25 | disposition home or self-care (01) ==
LOC: OR 08:38
PROVIDERS: ATTEND Podiatrist
DX: S82.841A Displaced bimalleolar fracture of right lower leg, initial encounter for closed fracture (principal); F17.290 Nicotine dependence, other tobacco product, uncomplicated; K21.9 Gastro-esophageal reflux disease without esophagitis; G89.18 Other acute postprocedural pain; Z79.899 Other long term (current) drug therapy; Z86.59 Personal history of other mental and behavioral disorders; W19.XXXA Unspecified fall, initial encounter
CPT/HCPCS: 64447; 81025; 64445; 73610; 27814; C1713; J2250; J0330; J1200; J1100; J0690 ×2; J2405; J3010 ×2; J2795; J2704; J1170; J2001